=== PATIENT | male | born 1950 | race African-American/Black ===

== ENCOUNTER → 2019-12-10 | Outpatient (CLI) | payer MEDICARE, OTHER ==
[~2019-12-10] MED LIST: REGADENOSON 0.4 MG/5 ML SYR IV ONE
--- NOTE | 2019-12-14 14:56 | Operative Report ---
DATE OF PROCEDURE: 12/10/2019 SURGEON: Bennie Norwood MD Lexiscan nuclear stress test. INDICATION: Chest pain. PROCEDURE: The patient was stressed using 1 minute intravenous infusion of Lexiscan. Rest and stress Myoview imaging was obtained. Resting electrocardiogram shows sinus rhythm, no other EKG changes. Resting heart rate 65, blood pressure 164/96. Following Lexiscan infusion, no EKG changes, no arrhythmias. Both nuclear imaging and resting stress is normal, normal contractility of the left ventricle. CONCLUSIONS: 1. Normal Lexiscan nuclear stress test without evidence of ischemia, infarction. 2. LV ejection fraction is 58%. ACCESSION NUMBER: [id number]. Bennie Norwood MD [facility] /[id number]
== END ==
LOC: NM 09:52
PROVIDERS: ATTEND Internal Medicine Interventional Cardiology
DX: I20.8 Other forms of angina pectoris (principal)
CPT/HCPCS: 78452; 87635; 93017; A9502; J2785

== ENCOUNTER 2020-03-17 17:19 | Inpatient (IN) | payer MEDICARE, OTHER ==
[~2020-03-17] VITALS: Ht 170.2 cm; Wt 78.9 kg
[2020-03-17] MEDS ORDERED: PIPER-TAZ 3.375 GM 50 ML IV ONE (18:15)
[2020-03-17] MEDS ORDERED: VANCOMYCIN 1GM/NS 250 ML 250 ML IV ONE (18:30)
--- NOTE | 2020-03-17 19:01 | Emergency Department Note ---
History of Present Illnes History of Present Illness Chief Complaint: Extremity Trauma/Pain History of Present Illness This is a 69 year old male presents with complaint of worsening right lower extremity pain. States has had swelling and pain for several months and right lower extremity that has gotten worse over the last few days. 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 . Historian: Patient Arrival Mode: Car Onset (how long ago): day(s) (several) Location: rle Quality: pain, swelling, redness Radiation: Reports non-radiation Severity: moderate Onset quality: gradual Duration (how long): day(s) (several) Timing of current episode: constant Progression: worsening Chronicity: chronic Context: Denies recent illness, Denies recent surgery, Denies trauma/injury Relieving factors: none Exacerbating factors: none Associated symptoms: Reports denies other symptoms Treatments prior to arrival: none Past Medical/Family History Physician Review I have reviewed the patient's past medical and family history. Any updates have been documented here. Past Medical History Recent Fever: No Clinical Suspicion of Infectio: No New/Unexplained Change in Ment: No Past Medical History: Hypertension, CVA, Seizure Disorder Other Medical History: right hemiplegia from cva Other Surgery: non contributory Social History Smoking Cessation: Never Smoker Alcohol Use: None Any Illegal Drug Use: No Physically hurt or threatened: No Family History Family history of heart diseas: No Other family history htn Other Last Tetanus: UNK Review of Systems Review of Systems Constitutional: Reports no symptoms EENTM: Reports no symptoms Cardiovascular: Reports no symptoms Respiratory: Reports no symptoms Gastrointestinal: Reports no symptoms Genitourinary: Reports no symptoms Musculoskeletal: Reports as per HPI Integumentary: Reports no symptoms Neurological: Reports no symptoms Psychological: Reports no symptoms Endocrine: Reports no symptoms Hematological/Lymphatic: Reports no symptoms Physical Exam Related Data Allergies: Coded Allergies: No Known Allergies (Unverified , 05/09/16) Triage Vital Signs Vital Signs Date Time Temp Pulse Resp B/P (MAP) Pulse Ox O2 Delivery O2 Flow Rate FiO2 03/17/20 18:00 97.9 03/17/20 18:28 71 18 100 Room Air Vital signs reviewed: Yes Physical Exam CONSTITUTIONAL Constitutional: Present well-developed, Present well-nourished HENT HENT: Present normocephalic, Present atraumatic, Present oropharynx clear/moist, Present nose normal HENT L/R: Present left ext ear normal, Present right ext ear normal EYES Eyes: Reports PERRL, Reports conjunctivae normal NECK Neck: Present ROM normal PULMONARY Pulmonary: Present effort normal, Present breath sounds normal CARDIOVASCULAR Cardiovascular: Present regular rhythm, Present heart sounds normal, Present capillary refill normal, Present normal rate GASTROINTESTINAL Abdominal: Present soft, Present nontender, Present bowel sounds normal GENITOURINARY Genitourinary: Present exam deferred SKIN Skin: Present warm, Present dry, Present erythema (rle from knee to ankle) MUSCULOSKELETAL Musculoskeletal: Present ROM normal, Present tenderness (rle from below knee to ankle), Present swelling (rle below knee to ankle) NEUROLOGICAL Neurological: Present alert, Present oriented x 3, Present other (right side paralysis from previous stroke) PSYCHOLOGICAL Psychological: Present mood/affect normal, Present judgement normal Results Imaging Imaging results reviewed: Yes Impressions Procedure: [id number] DX/CHEST SINGLE (PORTABLE) Exam Date: Exam Time: REPORT STATUS: Signed EXAMINATION: CHEST SINGLE (PORTABLE) INDICATION: Weakness. COMPARISON: Chest x-ray on 05/09/2016. FINDINGS: TUBES and LINES: None. LUNGS: Normal lung volumes. There are prominent interstitial lung markings bilaterally. No consolidations. PLEURA: No pleural effusion or pneumothorax. HEART AND MEDIASTINUM: The cardiomediastinal silhouette is within normal limits with atherosclerotic calcification of the thoracic aortic arch BONES AND SOFT TISSUES: No acute osseous lesion. Median sternotomy wires in place. Soft tissues are otherwise unremarkable. UPPER ABDOMEN: No free air under the diaphragm. IMPRESSION: Prominent interstitial lung markings throughout both lungs which may be due to pulmonary vascular congestion or an inflammatory process such as bronchitis. No focal consolidation identified. Signed by: Collins White MD on 03/17/2020 7:21 PM Dictated By: COLLINS WHITE MD 20 Transcribed By: YARELIS on 03/17/201920 COPY TO: JOSE JERONIMO MD~ venous doppler negative for dvt Assessment & Plan Medical Decision Making MDM Patient with right lower extremity swelling redness and pain has gotten worse over the last several days. Exam is consistent with appears to be lower strumming cellulitis however DVT could be a complicating factor. CBC, CMP, blood cultures, lactic acid, venous Doppler, chest x-ray ordered to eval for leukocytosis, electrolyte abnormality, deep venous thrombosis, pneumonia. Zosyn 3.375 g IV ordered, vancomycin 1 g IV ordered I SPOKE WITH DR DEL CID , ADMIT INPATIENT Assessment & Plan Final Impression: (1) Cellulitis of right lower leg Depart Disposition: ADMITTED Last Vital Signs Date Time Temp Pulse Resp B/P (MAP) Pulse Ox O2 Delivery O2 Flow Rate FiO2 03/17/20 18:28 71 18 164/99 100 Room Air 03/17/20 18:00 97.9 Home Meds No Active Prescriptions or Reported Meds Medications in the ED Piperacillin Sod/ Tazobactam Sod 50 ml @ 50 mls/hr NOW ONCE IV ; Start 03/17/20 at 18:15; Stop 03/17/20 at 19:14 Vancomycin HCl 250 ml @ 167 mls/hr NOW ONCE IV ; Start 03/17/20 at 18:30; Stop 03/17/20 at 19:59 JOSE JERONIMO MD Mar 17, 2020 19:01
--- NOTE | 2020-03-17 19:25 | Diagnostic Imaging Report ---
EXAMINATION: CHEST SINGLE (PORTABLE) INDICATION: Weakness. COMPARISON: Chest x-ray on 05/09/2016. FINDINGS: TUBES and LINES: None. LUNGS: Normal lung volumes. There are prominent interstitial lung markings bilaterally. No consolidations. PLEURA: No pleural effusion or pneumothorax. HEART AND MEDIASTINUM: The cardiomediastinal silhouette is within normal limits with atherosclerotic calcification of the thoracic aortic arch BONES AND SOFT TISSUES: No acute osseous lesion. Median sternotomy wires in place. Soft tissues are otherwise unremarkable. UPPER ABDOMEN: No free air under the diaphragm. IMPRESSION: Prominent interstitial lung markings throughout both lungs which may be due to pulmonary vascular congestion or an inflammatory process such as bronchitis. No focal consolidation identified. Signed by: Collins Iyer MD on 03/17/2020 7:21 PM
[2020-03-17 19:33] LABS: BASOPHILS % 0.8 % (0.0-1.0); EOSINOPHILS # (AUTO) 0.3 (0.0-0.4); EOSINOPHILS % 5.6 % (0.0-6.0); HEMATOCRIT 40.8 % (38.2-49.6); HEMOGLOBIN 12.4 g/dL (14.0-18.0); LYMPHOCYTES # (AUTO) 1.3 (1.0-3.2); LYMPHOCYTES % 25.8 % (18.0-39.1); MEAN CORPUSCULAR HEMOGLOBIN 22.7 pg (28-32); MEAN CORPUSCULAR HGB CONC 30.4 g/dL (31-35); MEAN CORPUSCULAR VOLUME 74.6 fL (81-99); MONOCYTES # (AUTO) 0.4 (0.2-0.8); MONOCYTES % 8.5 % (4.4-11.3); NEUTROPHILS # (AUTO) 2.9 (2.1-6.9); NEUTROPHILS % 59.1 % (38.7-80.0); PLATELET COUNT 57 x10e3/uL (140-360); RED BLOOD COUNT 5.47 x10e6/uL (4.3-5.7); RED CELL DISTRIBUTION WIDTH 15.3 % (11.7-14.4)
[2020-03-17 19:36] LABS: INR 1.76; PROTHROMBIN TIME 21.6 seconds (11.9-14.5)
[2020-03-17 19:46] LABS: ALANINE AMINOTRANSFERASE 37 IU/L (0-55); ALBUMIN 3.9 g/dL (3.5-5.0); ALKALINE PHOSPHATASE 79 IU/L (40-150); ANION GAP 15.9 mmol/L (8-16); BLOOD UREA NITROGEN 27 mg/dL (7-26); BUN/CREATININE RATIO 22 (6-25); CALCIUM 9.3 mg/dL (8.4-10.2); CARBON DIOXIDE 19 mmol/L (22-29); CHLORIDE 107 mmol/L (98-107); CREATININE, SERUM 1.23 mg/dL (0.72-1.25); EST GLOMERULAR FILTRATION RATE > 60 ML/MIN (60-); GLUCOSE 79 mg/dL (74-118); POTASSIUM 4.9 mmol/L (3.5-5.1); SODIUM 137 mmol/L (136-145)
--- OUTSIDE RECORDS SUMMARY | 2020-03-17 20:32 | XMS REPORT | Clinical Summary ---
Author Author [place] [facility] Organization [facility] Address Unknown Phone Unavailable Care Team Providers Care Erosion Control Coordinator Name Role Phone Asked, No Pcp PCP Unavailable Allergies No Known Allergies Medications End Date Status Medication Sig Dispensed Refills Start Date 07/29/2019 amLODIPine (NORVASC) 5 mg Take 1 tablet 60 tablet 0 tablet (5 mg total) 9 by mouth 2 (two) times a day for 30 days. 07/30/2019 aspirin 81 mg chewable Chew 1 tablet 30 tablet 0 1 tablet (81 mg total) 9 daily for 30 days. 07/29/2019 atorvastatin (LIPITOR) 40 Take 1 tablet 30 tablet 0 MG tablet (40 mg total) 9 by mouth nightly for 30 days. 07/30/2019 lisinopril (PRINIVIL) 40 Take 1 tablet 30 tablet 0 mg tablet (40 mg total) 9 by mouth daily for 30 days. 08/07/2019 pantoprazole (PROTONIX) Take 1 tablet 30 tablet 0 40 MG EC tablet (40 mg total) 9 by mouth daily for 30 days. 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 Right sided weakness 06/22/2019 Encounters Care Team Description Date Type Specialty Gladis Silver MD Teqwimuah, Remy, DO Right sided weakness (Primary Dx); Fall, initial encounter; Hypertensive emergency; Foreign body (FB) in soft tissue; Acute CVA (cerebrovascular accident) (HCC) 06/22/2019 [facility] [place] [facility] - Encounter 07/09/2019 after 03/17/2019 Immunizations Name Administration Dates Next Due FLUZONE HIGH-DOSE PF 07/09/2019 Social History Date Tobacco Use Types Packs/Day Years Used Never Smoker Smokeless Tobacco: Never Used Drinks/Week oz/Week Comments Alcohol Use 2 bottles of smirnof f daily Yes Sex Assigned at Date Recorded Not on file Industry Job Start Date Occupation Not on file Not on file Not on file Travel End Travel History Travel Start No recent travel history available. Last Filed Vital Signs Reading Time Taken Comments Vital Sign 141/75 07/09/2019 3:42 PM [facility] Blood Pressure 83 07/09/2019 3:42 PM [facility] Pulse 36.8 C (98.3 F) 07/09/2019 3:42 PM [facility] Temperature 15 07/09/2019 3:42 PM [facility] Respiratory Rate 96% 07/09/2019 3:42 PM [facility] Oxygen Saturation - - Inhaled Oxygen Concentration - - Weight 170.2 cm (5' 7") 06/22/2019 10:41 AM [facility] Height - - Body Mass Index Plan of Treatment Health Maintenance Due Date Last Done Comments COLONOSCOPY SCREENING 2000 SHINGLES VACCINES (#1) 2000 65+ PNEUMOCOCCAL VACCINE 09/29/2015 (1 of 2 - PCV13) INFLUENZA VACCINE 04/20/2020 07/09/2019 Procedures Comments Procedure Name Priority Date/Time Associated Diag nosis POC GLUCOSE Routine 07/02/2019 4:09 AM [facility] POC GLUCOSE Routine 07/02/2019 12:32 AM [facility] POC GLUCOSE Routine 07/01/2019 7:26 PM [facility] POC GLUCOSE Routine 07/01/2019 4:25 PM [facility] POC GLUCOSE Routine 07/01/2019 10:54 AM [facility] ESTIMATED GFR STAT 07/01/2019 7:21 AM [facility] BASIC METABOLIC PANEL STAT 07/01/2019 7:21 AM [facility] HC COMPLETE BLD COUNT STAT 07/01/2019 W/AUTO DIFF 7:21 AM [facility] POC GLUCOSE Routine 07/01/2019 5:35 AM [facility] POC GLUCOSE Routine 07/01/2019 1:59 AM [facility] POC GLUCOSE Routine 06/30/2019 8:42 PM [facility] POC GLUCOSE Routine 06/30/2019 4:01 PM [facility] POC GLUCOSE Routine 06/30/2019 11:40 AM [facility] POC GLUCOSE Routine 06/30/2019 5:45 AM [facility] POC GLUCOSE Routine 06/29/2019 8:23 PM [facility] POC GLUCOSE Routine 06/29/2019 2:57 PM [facility] POC GLUCOSE Routine 06/29/2019 11:10 AM [facility] POC GLUCOSE Routine 06/29/2019 5:23 AM [facility] ESTIMATED GFR Routine 06/29/2019 5:00 AM [facility] BASIC METABOLIC PANEL Routine 06/29/2019 5:00 AM [facility] HC COMPLETE BLD COUNT Routine 06/29/2019 W/AUTO DIFF 5:00 AM [facility] POC GLUCOSE Routine 06/29/2019 12:03 AM [facility] POC GLUCOSE Routine 06/28/2019 9:05 PM [facility] POC GLUCOSE Routine 06/28/2019 4:22 PM [facility] POC GLUCOSE Routine 06/28/2019 11:20 AM [facility] POC GLUCOSE Routine 06/28/2019 5:23 AM [facility] POC GLUCOSE Routine 06/28/2019 1:31 AM [facility] POC GLUCOSE Routine 06/27/2019 4:19 PM [facility] POC GLUCOSE Routine 06/27/2019 11:58 AM [facility] ESTIMATED GFR Routine 06/27/2019 8:55 AM [facility] HC COMPLETE BLD COUNT Routine 06/27/2019 W/AUTO DIFF 8:55 AM [facility] BASIC METABOLIC PANEL Routine 06/27/2019 8:55 AM [facility] MAGNESIUM LEVEL Routine 06/27/2019 8:55 AM [facility] PHOSPHORUS LEVEL Routine 06/27/2019 8:55 AM [facility] IONIZED CALCIUM Routine 06/27/2019 8:55 AM [facility] POC GLUCOSE Routine 06/27/2019 8:35 AM [facility] XR ABDOMEN 1 VW PORTABLE STAT 06/27/2019 6:58 AM [facility] POC GLUCOSE Routine 06/27/2019 3:50 AM [facility] POC GLUCOSE Routine 06/26/2019 11:38 PM [facility]ER POC GLUCOSE Routine 06/26/2019 7:42 PM [facility] POC GLUCOSE Routine 06/26/2019 3:47 PM [facility] POC GLUCOSE Routine 06/26/2019 6:52 AM [facility] ESTIMATED GFR Routine 06/26/2019 3:01 AM [facility] PHOSPHORUS LEVEL Routine 06/26/2019 3:01 AM [facility] MAGNESIUM LEVEL Routine 06/26/2019 3:01 AM [facility] IONIZED CALCIUM Routine 06/26/2019 3:01 AM [facility] HC COMPLETE BLD COUNT Routine 06/26/2019 W/AUTO DIFF 3:01 AM [facility] BASIC METABOLIC PANEL Routine 06/26/2019 3:01 AM [facility] POC GLUCOSE Routine 06/25/2019 11:20 PM [facility] POC GLUCOSE Routine 06/25/2019 7:17 PM [facility] POC GLUCOSE Routine 06/25/2019 4:54 PM [facility] POC GLUCOSE Routine 06/25/2019 11:56 AM [facility] XR ABDOMEN 1 VW Routine 06/25/2019 11:50 AM [facility] POC GLUCOSE Routine 06/25/2019 7:23 AM [facility] SMEAR REVIEW Routine 06/25/2019 3:06 AM [facility] ESTIMATED GFR Routine 06/25/2019 3:06 AM [facility] PHOSPHORUS LEVEL Routine 06/25/2019 3:06 AM [facility] IONIZED CALCIUM Routine 06/25/2019 3:06 AM [facility] MAGNESIUM LEVEL Routine 06/25/2019 3:06 AM [facility] BASIC METABOLIC PANEL Routine 06/25/2019 3:06 AM [facility] HC COMPLETE BLD COUNT Routine 06/25/2019 W/AUTO DIFF 3:06 AM [facility] URINALYSIS, AUTOMATED Routine 06/24/2019 WITH MICROSCOPY 11:43 PM [facility] POC GLUCOSE Routine 06/24/2019 11:13 PM [facility] XR CHEST 1 VW PORTABLE Routine 06/24/2019 10:36 PM [facility] POC GLUCOSE Routine 06/24/2019 7:13 PM [facility] POC GLUCOSE Routine 06/24/2019 4:41 PM [facility] XR ABDOMEN 1 VW STAT 06/24/2019 4:14 PM [facility] ARTERIAL BLOOD GAS STAT 06/24/2019 1:00 PM [facility] ESTIMATED GFR Routine 06/24/2019 3:33 AM [facility] MAGNESIUM LEVEL Routine 06/24/2019 3:33 AM [facility] BASIC METABOLIC PANEL Routine 06/24/2019 3:33 AM [facility] HC COMPLETE BLD COUNT Routine 06/24/2019 W/AUTO DIFF 3:33 AM [facility] MRI BRAIN W WO CONTRAST Routine 06/23/2019 5:05 PM [facility] FL MODIFIED BARIUM Routine 06/23/2019 SWALLOW 3:57 PM [facility] SMEAR REVIEW Routine 06/23/2019 3:41 AM [facility] ESTIMATED GFR Routine 06/23/2019 3:41 AM [facility] MAGNESIUM LEVEL Routine 06/23/2019 3:41 AM [facility] BASIC METABOLIC PANEL Routine 06/23/2019 3:41 AM [facility] HC COMPLETE BLD COUNT Routine 06/23/2019 W/AUTO DIFF 3:41 AM [facility] LIPID PANEL Routine 06/23/2019 3:41 AM [facility] TTE COMPLETE, WO Routine 06/22/2019 CONTRAST, W AGITATED 4:15 PM [facility] SALINE ([id number]) ESTIMATED GFR STAT 06/22/2019 10:53 AM WOOD [facility]ER CREATINE KINASE, TOTAL STAT 06/22/2019 (CPK) 10:53 AM [facility] COMPREHENSIVE METABOLIC STAT 06/22/2019 PANEL 10:53 AM [facility]ER POC GLUCOSE Routine 06/22/2019 10:40 AM [facility]OD [facility] ECG 12-LEAD STAT 06/22/2019 10:[address] ANGIOGRAM HEAD W WO STAT 06/22/2019 CONTRAST 10:[address] ANGIOGRAM NECK W WO STAT 06/22/2019 CONTRAST 10:29 AM [facility] PARTIAL THROMBOPLASTIN STAT 06/22/2019 TIME (PTT) 10:27 AM [facility]ER PROTHROMBIN TIME WITH INR STAT 06/22/2019 10:27 AM WOOD [facility]ER HC COMPLETE BLD COUNT STAT 06/22/2019 W/AUTO DIFF 10:[address] STROKE BRAIN WO STAT 06/22/2019 CONTRAST 10:22 AM [facility] ECG ED PRELIMINARY Routine 06/22/2019 INTERPRETATION 10:12 AM [facility] CA CRITICAL CARE, E/M Routine 06/22/2019 30-74 MINUTES 10:12 AM [facility] after 03/17/2019 Results * POC glucose (07/02/2019 4:09 AM WOOD [facility]ER) Only the most recent of 38 results within the time period is included. Pathologist [facility] POC glucose 82 65 - 99 mg/dL [facility] Specimen Performing Organization Address [facility] Ph one Number [facility] DEPARTMENT OF [address] [place] [address] [place] [address] PATHOLOGY AND GENOMIC MEDICINE [address] * Estimated GFR (07/01/2019 7:21 AM WOOD [facility]ER) Only the most recent of 8 results within the time period is included. [facility] Estimated GFR 79 mL/min/1.73 m2 [place] Comment: [facility] Interpretation G1 >=90 Normal or high G2 60-89 Mildly decreased G3a 45-59 Mildly to moderately decreased G3b 30-44 Moderately to severely decreased G4 15-29 Severely decreased G5 <15 Kidney failure The eGFR was calculated using the Chronic Kidney Disease Epidemiology Collaboration (CKD-EPI) equation. Interpretation is based on recommendations of the National Kidney Foundation-Kidney Disease Outcomes Quality Initiative (NKF-KDOQI) published in 2014. Specimen Plasma specimen Performing Organization Address [facility] Ph one Number [facility] DEPARTMENT OF [address] [place] [address] [place] [address] PATHOLOGY AND GENOMIC MEDICINE [address] * CBC with platelet and differential (07/01/2019 7:21 AM WOOD HACKER) Only the most recent of 8 results within the time period is included. [facility] WBC 7.13 4.50 - 11.00 k/uL [facility] RBC 5.98 4.40 - 6.00 m/uL [facility] HGB 14.0 14.0 - 18.0 g/dL [facility] HCT 45.3 41.0 - 51.0 % [facility] MCV 75.8 (L) 82.0 - 100.0 fL [facility] MCH 23.4 (L) 27.0 - 34.0 pg [facility] MCHC 30.9 (L) 31.0 - 37.0 g/dL [facility] RDW - SD 42.2 37.0 - 55.0 fL [facility] MPV 11.5 8.8 - 13.2 fL [facility] Platelet count 172 150 - 400 k/uL [facility] Nucleated RBC 0.00 /100 WBC [facility] Neutrophils 61.9 39.0 - 69.0 % [facility] Lymphocytes 22.9 (L) 25.0 - 45.0 % [facility] Monocytes 10.7 (H) 0.0 - 10.0 % [facility] Eosinophils 3.8 0.0 - 5.0 % [facility] Basophils 0.4 0.0 - 1.0 % [facility] Specimen Blood Performing Organization Address [facility] Ph one Number [facility] [place]PARTMENT [place] [id number] [place] [address] [place], [place] [address] PATHOLOGY AND GENOMIC MEDICINE [address] [place] [id number] [facility] * Basic metabolic panel (07/01/2019 7:21 AM WOOD [facility]ACKER) Only the most recent of 7 results within the time period is included. Sodium 139 135 - 148 mEq/L [facility] Potassium 4.0 3.5 - 5.0 mEq/L [facility] Chloride 106 98 - 112 mEq/L [facility] CO2 26 24 - 31 mEq/L [facility] Anion gap 7@ANIO 7 - 15 mEq/L [facility] BUN 17 8 - 23 mg/dL [facility] Creatinine 1.10 0.70 - 1.20 mg/dL [facility] Glucose 101 (H) 65 - 99 mg/dL [facility] Calcium 9.8 8.8 - 10.2 mg/dL [facility] Specimen Plasma specimen Performing Organization Address City/[facility] Ph one Number [facility] [place] [place] [address] [address] [place] [phone] 58 PATHOLOGY AND GENOMIC MEDICINE [facility] [address] [address] * Phosphorus level (06/27/2019 8:55 AM WOOD [facility]ER) Only the most recent of 3 results within the time period is included. Phosphorus 3.3 2.4 - 4.5 mg/dL [facility] Specimen Plasma specimen Performing Organization Address [facility] Ph one Number [facility] [place] [address] [address] [phone] 58 PATHOLOGY AND GENOMIC MEDICINE [facility] [address] [address] * Magnesium level (06/27/2019 8:55 AM WOOD [facility]ER) Only the most recent of 5 results within the time period is included. Magnesium 2.1 1.6 - 2.4 mg/dL [facility] Specimen Plasma specimen Performing Organization Address [facility] Ph one Number [facility] [place] [address] [address] [place] [address] PATHOLOGY AND GENOMIC MEDICINE [facility] [address] [address] * Ionized calcium (06/27/2019 8:55 AM WOOD [facility]ER) Only the most recent of 3 results within the time period is included. pH 7.48 [facility] Ionized calcium 1.14 1.11 - 1.32 mmol/L [facility] Specimen Plasma specimen Performing Organization Address [facility] Ph one Number [facility] [place] [address] [address] [place] [address] PATHOLOGY AND GENOMIC MEDICINE [facility] [address] * XR Abdomen 1 Vw Portable (06/27/2019 6:58 AM [facility]ER) Specimen Narrative Performed At EXAMINATION: XR ABDOMEN 1 VW PORTABLE [facility] INDICATION: cortrak placement COMPARISON:June 25, 2019 IMPRESSION: 1.Weighted tip feeding tube projects at the proximal jejunum. A partially visualized second catheter projects ove r the right upper quadrant. 2.Contrast is present within the large bowel. Bowel gas pattern is otherwise nonspecific. 3.Osseous degenerative changes. [facility]-[id number] Procedure Note Interface, Radiology Results Incoming - 06/27/2019 7:44 AM [facility]ER EXAMINATION: XR ABDOMEN 1 VW PORTABLE INDICATION: cortrak placement COMPARISON:June 25, 2019 IMPRESSION: 1.Weighted tip feeding tube projects at the proximal jejunum. A partially visualized second catheter projects over the right upper quadrant. 2.Contrast is present within the large b owel. Bowel gas pattern is otherwise nonspecific. 3.Osseous degenerative changes. [facility]-[id number] Performing Organization Address [facility] one Number [facility] [address] [place] [address] * XR Abdomen 1 Vw (06/25/2019 11:50 AM WOOD [facility]ER) Only the most recent of 2 results within the time period is included. Specimen Narrative Performed At Study:XR ABDOMEN 1 VW [facility] History:Feeding difficulties, Cortrak p lacement COMPARISON:Yesterday IMPRESSION: Single view abdomen. The tip of the bhoff tube is in the third segment of the duodenum. Contrast is seen within the c olon. No bowel distention or free air. Bones are stable. [id number] Procedure Note Interface, Radiology Results Incoming - 06/25/2019 12:44 PM WOOD [facility]ER Study:XR ABDOMEN 1 VW History:Feeding difficulties, Cortrak placement COMPARISON:Yesterday IMPRESSION: Single view abdomen. The tip of the Dobbhoff tube is in the third segment of the duodenum. Contrast is seen within the colon. No bowel distention or free air. Bones are stable. [id number] Performing Organization Address [facility] one Number [facility] [address] [place] [address] * Smear review (06/25/2019 3:06 AM WOOD [facility]ACKER) Only the most recent of 2 results within the time period is included. Platelet slide Cyndi slt decr [place] review [facility] Specimen Performing Organization Address [facility] one Number [facility] [place] [address] [address] [place], [place] [address] PATHOLOGY AND GENOMIC MEDICINE [facility] [address] [place] [address] [facility] * Urinalysis, automated with microscopy (06/24/2019 11:43 PM WOOD HACKER) Color, UA Yellow [facility] Appearance, UA Clear [facility] Specific 1.010 1.001 - 1.035 [place] gravity, UA [facility] pH, UA 5.0 5.0 - 8.5 [facility] Protein, UA Negative Negative [facility] Glucose, UA Negative Negative [facility] Ketones, UA 1+ (A) Negative [facility] Bilirubin, UA Negative Negative [facility] Blood, UA Negative Negative [facility] Nitrite, UA Negative Negative [facility] Urobilinogen, Negative <2.0 [facility] Leukocyte Negative Negative [place] esterase, UA [facility] Epithelial Few Few /HPF [place] cells, [facility] WBC, UA 0-5 0 - 1 /HPF [facility] RBC, UA 0-5 0 - 5 /HPF [facility] Bacteria, UA Few None seen [facility] Yeast, UA None seen [facility] Yeast with None seen [place] pseudohyphae, [facility] Specimen Urine Performing Organization Address City/State/[facility] Ph one Number [facility] [place] [address] [address] [place], [place] [address] PATHOLOGY AND GENOMIC MEDICINE [facility] [address] [place] [address] [facility] * XR Chest 1 Vw Portable (06/24/2019 10:36 PM WOOD HACKER) Specimen Narrative Performed At EXAMINATION: XR CHEST 1 VW PORTABLE [facility] CLINICAL HISTORY: AMS hypoxia COMPARISON: None . IMPRESSION: 1.Heart size is normal. Median sternoto my wires overlie the midline. 2.A Dobbhoff tube extends into the uppe r abdomen with the tip in the third portion duodenum. There is residual con trast within the colon. 3.Lungs are clear. 4.No pneumothorax.. [facility]-[id number] Procedure Note Interface, Radiology Results Incoming - 06/24/2019 10:51 PM WOOD [facility]ACKER EXAMINATION: XR CHEST 1 VW PORTABLE CLINICAL HISTORY: AMS hypoxia COMPARISON: None . IMPRESSION: 1.Heart size is normal. Median sternotom y wires overlie the midline. 2.A Dobbhoff tube extends into the upper abdomen with the tip in the third portion duodenum. There is residual contrast within the colon. 3.Lungs are clear. 4.No pneumothorax.. [facility]-[id number] Performing Organization Address City/[facility] Ph one Number [facility] [address] [place] [address] * Arterial blood gas (06/24/2019 1:00 PM WOOD HACKER) pH, arterial 7.42Comment: [id number] 7.35 - 7.45 [facility] pCO2, arterial 34 (L) 35 - 45 mmHg [facility] pO2, arterial 75 (L) 80 - 90 mmHg [facility] Bicarbonate, 22.7 21.0 - 28.0 mmol/L [facility] Base excess, -2 -2 - 2 mEq/L [facility] O2 saturation, 97 95 - 100 % [facility] FiO2, inspired 21 % [place] O2% [facility] Specimen Blood Performing Organization Address City/[facility] Ph one Number [facility] [place] [address] [address] [place], [place] [address] PATHOLOGY AND GENOMIC MEDICINE [facility] [address] [place] [address] [facility] * MRI Brain W Wo Contrast (06/23/2019 5:05 PM WOOD HACKER) Specimen Narrative Performed At EXAMINATION: MRI BRAIN W WO CONTRAST [facility] CLINICAL HISTORY: cva. Follow-up COMPARISON: CT brain from yesterday. TECHNIQUE: Multiplanar and multisequenc e MRI imaging of the brain was obtained with and without contrast. FINDINGS: There is a small recent stroke in the p osterior upper left basal ganglia and frontal ray radiata. There is no sig nificant mass effect. There is no evidence of recent hemorrhage. There is nonspecific enlargement of the ventricles and extra axial space and white matter changes. There are old inf arcts in the basal ganglia, thalami and right cerebellum. There are no areas of abnormal enhancem ent in the brain or extra axial region. The sella is partially empty. The orbits, sinuses and mastoid air evelina ls do not show abnormality. IMPRESSION: Finding consistent with a small recent stroke in the left posterior lateral upper basal ganglia and frontal ray radiata. Old infarcts and chronic changes. [id number] Procedure Note Hm Interface, Radiology Results Incoming - 06/23/2019 5:30 PM [facility]OD [facility]ACKER EXAMINATION: MRI BRAIN W WO CONTRAST CLINICAL HISTORY: cva. Follow-up COMPARISON: CT brain from yesterday. TECHNIQUE: Multiplanar and multisequence MRI imaging of the brain was obtained with and without contrast. FINDINGS: There is a small recent stroke in the posterior upper left basal ganglia and frontal ray radiata. There is no significant mass effect. There is no evidence of recent hemorrhage. There is nonspecific enlargement of the ventricles and extra axial space and white matter changes. There are old infarcts in the basal ganglia, thalami and right cerebellum. There are no areas of abnormal enhancement in the brain or extra axial region. The sella is partially empty. The orbits, sinuses and mastoid air cells do not show abnormality. IMPRESSION: Finding consistent with a small recent stroke in the left posterior lateral upper basal ganglia and frontal ray radiata. Old infarcts and chronic changes. [facility][id number] Performing Organization Address [facility] one Number [facility] [address] [place] [address] * [place] Modified Barium Swallow (06/23/2019 3:57 PM WOOD HACKER) Specimen Narrative Performed At EXAMINATION: FL MODIFIED BARIUM SWALLOW [facility] CLINICAL HISTORY: Dysphagia known c ause, I63.91 dysphagia after CVA COMPARISON: None. Fluoroscopy time: 3 minutes and 35 seco nds, single image obtained. FINDINGS: The patient swallowed varying consisten cies of barium under direct lateral fluoroscopic evaluation. The study was performed in conjunction with speech pathology. IMPRESSION: There was silent aspiration with the th in and ultrathin liquid. Please refer to Speech Pathology report for further details. [id number] Procedure Note Interface, Radiology Results Incoming - 06/23/2019 4:56 PM WOOD [facility]ACKER EXAMINATION: FL MODIFIED BARIUM SWALLOW CLINICAL HISTORY: Dysphagia known cause, I63.91 dysphagia after CVA COMPARISON: None. Fluoroscopy time: 3 minutes and 35 seconds, single image obtained. FINDINGS: The patient swallowed varying consistencies of barium under direct lateral fluoroscopic evaluation. The study was performed in conjunction with speech pathology. IMPRESSION: There was silent aspiration with the thin and ultrathin liquid. Please refer to Speech Pathology report for further details. [id number] Performing Organization Address [facility] one Number [facility] [address] [place] [address] * Lipid panel (06/23/2019 3:41 AM WOOD HACKER) Cholesterol 171 <200 mg/dL [facility] Triglycerides 46 (A) <150 mg/dL [facility] HDL cholesterol 81 >40 mg/dL [facility] LDL cholesterol 89Comment: Result obtained by <100 mg/dL [place] direct LDL measurement [facility] Lipid panel SeeBelow [place] interpretation Comment: [facility] Total Cholesterol (mg/dL) [facility] <200 Desirable 200-239 Borderline-high >=240 High Triglycerides (mg/dL) <150 Normal 150-199 Borderline-high 200-499 High >=500 Very high HDL Cholesterol (mg/dL) <40 Low (male) <40 Low (female) LDL Cholesterol (mg/dL) <100 Optimal 100-129 Near or above optimal 130-159 Borderline-high 160-189 High >=190 Very high Risk Catergories that modify LDL goals. Risk Catergories LDL goal (mg/dL) CHD and CHD risk equivalent <100 (10-year risk >20%) Multiple (2+) risk factors <130 (10-year risk =<20%) 0-1 risk factors <160 (<10-year risk) Defining levels of lipids in metabolic syndrome Triglycerides >=150 mg/dL HDL Cholesterol Men <40 mg/dL Women <40 mg/dL Non-HDL cholesterol is a second target for therapy in persons with high triglycerides (>=200 mg/dL) Specimen Plasma specimen Performing Organization Address City/State/[place] Ph one Number [facility] [place]PARTMENT [place] [id number] [place] [address] [place], [place] [address] PATHOLOGY AND GENOMIC MEDICINE [facility] [address] [place] [address] [facility] * Echocardiogram complete w contrast and 3D if needed (06/22/2019 4:15 PM WOOD HACKER) AoV Area, Vmax 2.68 cm2 [facility] AoV Area, VTI 2.78 cm2 HM [facility] AoV Mean PG 4.24 mmHg HM [facility] AoV Peak PG 7.59 mmHg HM [facility] AoV Vmax 1.38 m/s [facility] AoV VTI 0.23 m [facility] IVS,d 1.32 cm HM [facility] LV,d 3.93 cm HM [facility] LV EF,A2C 61.65 % [facility] LV EF,A4C 60.24 % [facility] LV EF,BP 56.57 % [facility] Gabriel Ida,d A2C 8.38 cm HM [facility] Gabriel Ida,d A4C 7.40 cm HM [facility] Gabriel Ida,s A2C 7.45 cm HM [facility] Gabriel Ida,s A4C 5.29 cm HM [facility] LV,s 2.78 cm HM [facility] LV SV,A2C 50.40 % [facility] LV SV,A4C 41.31 % HM [facility] LV Vol,d A2C 81.75 mL HM [facility] LV Vol,d A4C 68.58 ml HM [facility] LV Vol,d BP 79.47 ml HM [facility] LV Vol,s A2C 31.36 mL HM [facility] LV Vol,s A4C 27.27 ml HM [facility] LV Vol,s BP 34.51 nl [facility] LVOT Diam,S 1.98 cm [facility] LVOT Vmax 1.20 m/s [facility] LVOT VTI 0.20 m HM [facility] LVPWD,d 1.39 cm HM [facility] TR Vpeak 2.72 mm/s [facility] AR Press Half 694.52 ms HM [facility] Time MV E A ratio 0.44 [facility] TR pk grad 24 mmHg HM [facility] E wave 208.99 msec HM [facility] decelartion time MV Peak A Victor Manuel 0.80 m/s [facility] MV valve area p 5.35 cm2 HM [facility] 1/2 method MV Peak E Victor Manuel 0.35 m/s [facility] MV stenosis 41.10 ms HM [facility] pressure 1/2 time AV LVOT peak 5.72 mmHg HM [facility] gradient LV SYS VOL 29.01 ml HM [facility] LV PRINCE VOL 67.32 ml HM [facility] LV SV Teich 2D 38.32 ml HM [facility] AoV Cusp sep 1.61 [facility] AoV Vmn 0.97 [facility] IVS s 2D 1.63 [facility] AR slope 2.24 [facility] Ar Vmax 4.80 [facility] LA Ao Ratio 1.02 [facility] Mmode LVOT Vmn 0.79 [facility] Ao root annulus 3.59 cm HM [facility] PV AT 79.58 msec [facility] LVOT mean grad 2.86 mmHg HM [facility] AR DT 2,137.33 msec [facility] AR pk grad 71.64 mmHg HM [facility] LVPW s PLAX 1.78 cm [facility] MV Decel slope 1.67 m/s2 [facility] LA Vol MOD A4C 44.90 ml [facility] Velocity Ratio 0.87 m/s [facility] (V1/V2) EF 56.91 % [facility] E/A ratio 0.44 [facility] LVOT area 3.08 cm2 HM [facility] RVSP (TR) 29.13 mmHg HM [facility] RA pressure 5.00 mmHg HM [facility] LA Vol 4C 45.00 ml HM [facility] RVSP 29.13 mmHg HM [facility] LA diam s 3.70 cm [facility] Aortic Root 3.60 cm HM [facility] CA End Prince 4.78 HM [facility] Grad CA End Diat Victor Manuel 1.09 HM [facility] AR maxPG 81.84 [facility] D E excurs 1.40 [facility] E f slope 0.05 HM [facility] E prime lat 0.06 HM [facility] E ilir sept 0.04 [facility] PV acc T slope 9.60 [facility] DENNIS BP EF 57.00 % [facility] LA VOL 2C 36.00 ml HM [facility] Specimen Narrative Performed At HM [facility] Left ventricular systolic function i s normal. There is mild left ventricular maco ntric hypertrophy. Left Ventricular ejection fraction i s 55 - 60%. Spectral Doppler shows impaired rela xation pattern of left ventricular diastolic filling. Saline contrast injection showed no evidence of intracardiac shunt. Performing Organization Address [facility] Ph one Number [facility] [address] [place] [address], * Creatine kinase, total (CPK) (06/22/2019 10:53 AM WOOD HACKER) Creatine kinase 247 39 - 308 U/L [facility] Specimen Plasma specimen Performing Organization Address City/[facility] Ph one Number [facility] [place] [id number] [place] [address] [place], [place] [address] PATHOLOGY AND GENOMIC MEDICINE [facility] [id number] [place] [address] [place] [address] [facility] * Comprehensive metabolic panel (06/22/2019 10:53 AM WOOD HACKER) Sodium 132 (L) 135 - 148 mEq/L [facility] Potassium 3.9 3.5 - 5.0 mEq/L [facility] Chloride 100 98 - 112 mEq/L [facility] CO2 17 (L) 24 - 31 mEq/L [facility] Anion gap 15@ANIO 7 - 15 mEq/L [facility] BUN 18 8 - 23 mg/dL [facility] Creatinine 1.00 0.70 - 1.20 mg/dL [facility] Glucose 105 (H) 65 - 99 mg/dL [facility] Calcium 9.3 8.8 - 10.2 mg/dL [facility] Protein 6.9 6.3 - 8.3 g/dL [place] Comment: [facility] Dmrbowj1428.6-7.0 g/dL [facility] 1 rahi0337.4-7.6 g/dL 7 months-6usop645.1-7.3 g/dL 1-2 bahxv742.6-7.5 g/dL >3 ceqxk278.0-8.0 g/dL 18-4879341.3-8.3 g/dL Albumin 4.0 3.5 - 5.0 g/dL [facility] A/G ratio 1.4 0.7 - 3.8 [facility] Alkaline 58 40 - 129 U/L [place] phosphatase [facility] AST 20 10 - 50 U/L [facility] ALT 9 5 - 50 U/L [facility] Total bilirubin 0.5 0.0 - 1.2 mg/dL [facility] Specimen Plasma specimen Performing Organization Address City/State/[facility] Ph one Number [facility] [place] [address] [address] [place] [address] PATHOLOGY AND GENOMIC MEDICINE [facility] [address] [place] [address] [facility] * ECG 12 lead (06/22/2019 10:38 AM WOOD HACKER) Ventricular 92 [facility] rate Atrial rate 92 [facility] CA interval 154 [facility] QRSD interval 72 [facility] QT interval 382 [facility] QTC interval 472 [facility] P axis 1 48 [facility] QRS axis 1 33 [facility] T wave axis -7 [facility] EKG impression Normal sinus rhythm with sinus [facility] MU SE arrhythmia-^^^ Poor data quality, interpretation may be adversely affected-Possible Left atrial enlargement-Left ventricular hypertrophy-ST elevation, consider early repolarization, pericarditis, or injury-Nonspecific T wave abnormality-Prolonged QT-Abnormal ECG-No previous ECGs available- Specimen Narrative Performed At This result has an attachment that is n ot available. Performing Organization Address City/State/Zipcode Ph one Number [facility] MUSE [address] [place] [address] * CTA Head W Wo Contrast (06/22/2019 10:31 AM WOOD HACKER) Specimen Narrative Performed At EXAMINATION: CT ANGIOGRAM HEAD W WO CONTRAST RADI ANT CLINICAL HISTORY: Stroke. Follow up. Ev aluate for acute large vessel occlusion. COMPARISON: CT brain from earlier tod ay TECHNIQUE: Imaging of the intracrania l circulation was obtained from the skull base to the vertex during the arterial phase of enhancement. Postprocessing was performed with MIP multiplanar and 3D r econstructed images. CT scans are performed using radiation dose reduction techniques. Te chnical factors are evaluated and adjusted to ensure appropriate moderati on of exposure. Automated dose management technology is applied to adjust radiati on exposure while achieving a diagnostic quality image. FINDINGS: There is no evidence of acute large ves jose occlusion at the level of the huslia of [place]. There is flow in both socially responsible investment adviser ior communicating arteries with small P1 segments. The distal right vertebral artery is do minant. The distal vertebral and basilar arteries and the distal internal caroti d arteries do not show evidence of significant focal stenosis. I do not se e focal aneurysm or arterial venous malformation. The study was not performed for proper imaging of the brain. There is good enhancement in the upper dural venous s inuses. IMPRESSION: No evidence of acute large vessel occlu ollie at the level of the huslia of [place]. [facility]-[id number] Procedure Note Interface, Radiology Results Incoming - 06/22/2019 11:22 AM WOOD HACKER EXAMINATION: CT ANGIOGRAM HEAD W WO CONTRAST CLINICAL HISTORY: Stroke. Follow up. Evaluate for acute large vessel occlusion. COMPARISON: CT brain from earlier today TECHNIQUE: Imaging of the intracranial circulation was obtained from the skull base to the vertex during the arterial phase of enhancement. Postprocessing was performed with MIP multiplanar and 3D reconstructed images. CT scans are performed using radiation dose reduction techniques. Technical factors are evaluated and adjusted to ensure appropriate moderation of exposure. Automated dose management technology is applied to adjust radiation exposure while achieving a diagnostic quality image. FINDINGS: There is no evidence of acute large vessel occlusion at the level of the huslia of [place]. There is flow in both posterior communicating arteries with small P1 segments. The distal right vertebral artery is dominant. The distal vertebral and basilar arteries and the distal internal carotid arteries do not show evidence of significant focal stenosis. I do not see focal aneurysm or arterial venous malformation. The study was not performed for proper imaging of the brain. There is good enhancement in the upper dural venous sinuses. IMPRESSION: No evidence of acute large vessel occlusion at the level of the huslia of [place]. [facility]-[id number] Performing Organization Address City/State/Zipcode Ph one Number [facility] [address] [place] [address] * CTA Neck W Wo Contrast (06/22/2019 10:29 AM WOOD HACKER) Specimen Narrative Performed At EXAMINATION: CT ANGIOGRAM NECK W WO CONTRAST RA GUDINO CLINICAL HISTORY: Stroke follow up COMPARISON: None. TECHNIQUE: Neck CTA with multi-planar MIP and volu metric rendering (3D) after bolus intravenous iodinated contrast administ ration was performed. All CT images were acquired using low-d ose technique with automated exposure control. FINDINGS: Common origin of the brachiocephalic an d left common carotid arteries. Tortuosity of the proximal great vessel s. Dominant right vertebral artery. Mild partially calcified arteriosclerosis of the proximal left internal carotid artery. The bilateral cervical carotid and vert ebral arterial systems appear widely patent without evidence of dissection o r hemodynamically significant stenosis by NASCET criteria. Limited evaluation of the neck adjacent evidence of abnormal mass, collection, or suspicious osseous lesion. Median st ernotomy wires. See dedicated CTA head report for intracranial findings. IMPRESSION: No significant cervical carotid or vert ebral artery stenosis. [id number] Procedure Note Interface, Radiology Results Incoming - 06/22/2019 11:20 AM WOOD HACKER EXAMINATION: CT ANGIOGRAM NECK W WO CONTRAST CLINICAL HISTORY: Stroke follow up COMPARISON: None. TECHNIQUE: Neck CTA with multi-planar MIP and volumetric rendering (3D) after bolus intravenous iodinated contrast administration was performed. All CT images were acquired using low-dose technique with automated exposure control. FINDINGS: Common origin of the brachiocephalic and left common carotid arteries. Tortuosity of the proximal great vessels. Dominant right vertebral artery. Mild partially calcified arteriosclerosis of the proximal left internal carotid artery. The bilateral cervical carotid and vertebral arterial systems appear widely patent without evidence of dissection or hemodynamically significant stenosis by NASCET criteria. Limited evaluation of the neck adjacent evidence of abnormal mass, collection, or suspicious osseous lesion. Median sternotomy wires. See dedicated CTA head report for intracranial findings. IMPRESSION: No significant cervical carotid or vertebral artery stenosis. [id number] Performing Organization Address [facility] one Number [facility] [address] [place] [address] * Partial thromboplastin time, activated (06/22/2019 10:27 AM WOOD HACKER) PTT 23.5 23.0 - 36.0 sec [place] Comment: GAMA DOE PTT therapeutic range for [facility] unfractionated heparin is 61.0-112.0 seconds which corresponds to Anti-Xa 0.3-0.7 U/ml. Specimen Blood Performing Organization Address [facility] one Number [facility] DEPARTMENT OF [address] [place] [address] [place] [address] PATHOLOGY AND GENOMIC MEDICINE [place] JEWISH CLEAR [address] [place] [address] * Prothrombin time with INR (06/22/2019 10:27 AM WOOD HACKER) Prothrombin 13.0 11.5 - 14.5 sec [place] time [facility] INR 1.0 [place] Comment: GAMA DOE The International Normalized [facility] Ratio (INR) is a therapeutic monitoring tool for patients who are stable on oral anticoagulant therapy. An INR of 2.0-3.0 is suggested for deep vein thrombosis/pulmonary embolism. Specimen Blood Performing Organization Address [facility] one Number [facility] DEPARTMENT OF [address] [place] [address] [address] [place] [address] PATHOLOGY AND GENOMIC MEDICINE [place] GAMA DOE [address] [place] [address] * CT Stroke Brain Wo Contrast (06/22/2019 10:22 AM WOOD HACKER) Specimen Narrative Performed At EXAMINATION: CT STROKE BRAIN WO CONTRAST [facility] CLINICAL INFORMATION: Focal neuro defic it > 6 hrs stroke suspected COMPARISON: None available at the time of study. TECHNIQUE: CT imaging was performed wit h contrast using iterative reconstruction technique and/or automated exposure con trol to reduce radiation dose. CONTRAST: No IV contrast administered . FINDINGS: CEREBRUM: *Exam shows no evidence of acute intrac ranial hemorrhage, mass effect, midline shift, hydrocephalus or brain herniatio n *There is a background of moderate symm etric volume loss with extensive subcortical and periventricular microan giopathic changes. *Chronic appearing infarcts noted in th e left precentral gyrus, left caudate nucleus, right lentiform nucleus and bi lateral thalami. CEREBELLUM: *No evidence of acute hemorrhage, mass effect, midline shift, hydrocephalus or brain herniation *There is a chronic cortical infarct in volving the right inferior cerebellar lobe BRAINSTEM: *No evident edema, hemorrhage, mass, mi dline shift or acute infarction *No evidence of inappropriate atrophy. CSF SPACES: *Ventricles, cisterns, and sulci are ap propriate for age. *No hydrocephalus, subarachnoid hemorrh age, or mass. VASCULAR: *Limited assessment with no evident abn ormalities of huslia of [place] and dural sinuses. SKULL: *No focal lesions, mass, displaced frac tures or other visible lesion. SINUSES: *Limited views demonstrate no mass, sig nificant mucosal thickening or fluid. ORBITS: *Limited views shows no focal lesion fr acture or other visible lesion. OTHER: *Dehiscent sellar diaphragm resulting i n an empty sella IMPRESSION: 1.Negative for acute intracranial hemor rhage, mass effect, midline shift, hydrocephalus or brain herniation 2.Extensive supratentorial microangiopa thy changes with multiple chronic appearing subcortical, perforating and right cerebellar infarcts as described in the body the report. Findings were discussed with and acknow ledged by GLADIS SILVER at 06/22/2019 10:32 AM who verbalized understanding. [id number] Procedure Note Hm Interface, Radiology Results Incoming - 06/22/2019 10:37 AM WOOD HACKER EXAMINATION: CT STROKE BRAIN WO CONTRAST CLINICAL INFORMATION: Focal neuro deficit > 6 hrs stroke suspected COMPARISON: None available at the time of study. TECHNIQUE: CT imaging was performed with contrast using iterative reconstruction technique and/or automated exposure control to reduce radiation dose. CONTRAST: No IV contrast administered. FINDINGS: CEREBRUM: *Exam shows no evidence of acute intracranial hemorrhage, mass effect, midline shift, hydrocephalus or brain herniation *There is a background of moderate symmetric volume loss with extensive subcortical and periventricular microangiopathic changes. *Chronic appearing infarcts noted in the left precentral gyrus, left caudate nucleus, right lentiform nucleus and bilateral thalami. CEREBELLUM: *No evidence of acute hemorrhage, mass effect, midline shift, hydrocephalus or brain herniation *There is a chronic cortical infarct involving the right inferior cerebellar lobe BRAINSTEM: *No evident edema, hemorrhage, mass, midline shift or acute infarction *No evidence of inappropriate atrophy. CSF SPACES: *Ventricles, cisterns, and sulci are appropriate for age. *No hydrocephalus, subarachnoid hemorrhage, or mass. VASCULAR: *Limited assessment with no evident abnormalities of huslia of [place] and dural sinuses. SKULL: *No focal lesions, mass, displaced fractures or other visible lesion. SINUSES: *Limited views demonstrate no mass, significant mucosal thickening or fluid. ORBITS: *Limited views shows no focal lesion fracture or other visible lesion. OTHER: *Dehiscent sellar diaphragm resulting in an empty sella IMPRESSION: 1.Negative for acute intracranial hemorr jeff, mass effect, midline shift, hydrocephalus or brain herniation 2.Extensive supratentorial microangiopat hy changes with multiple chronic appearing subcortical, perforating and right cerebellar infarcts as described in the body the report. Findings were discussed with and acknowledged by GLADIS SILVER at 06/22/2019 10:32 AM who verbalized understanding. [id number] Performing Organization Address City/State/[facility] Ph one Number [facility] [address] [place] [address] * ECG ED Preliminary Interpretation - Not an Order (06/22/2019 10:12 AM WOOD HACKER) Narrative Performed At Gladis Silver MD 06/22/2019 11:51 AM ECG ED Preliminary Interpretation - Not an Order Performed by: Gladis Silver MD Authorized by: Gladis Silver MD ECG reviewed by ED Physician in the abs ence of a automobile damage field appraiser: no Interpretation: Interpretation: normal Rate: ECG rate: 92 ECG rate assessment: normal Rhythm: Rhythm: sinus rhythm QRS: QRS axis: Normal QRS intervals: Normal Conduction: Conduction: normal ST segments: ST segments: Non-specific T waves: T waves: non-specific * CRITICAL CARE (06/22/2019 10:12 AM WOOD HACKER) Narrative Performed At Gladis Silver MD 06/22/2019 11:51 AM Critical Care Performed by: Gladis Silver MD Authorized by: Gladis Silver MD Critical care provider statement: Critical care time (minutes): 40 Critical care time was exclusive of: Separately billable procedures and treating other patients Critical care was necessary to treat or prevent imminent or life-threatening deterioration of the f ollowing conditions: BRIDGE MANAGER failure or compromise Critical care was time spent personal ly by me on the following activities: Ordering and performing t reatments and interventions, ordering and review of laboratory studi es, ordering and review of radiographic studies, pulse oximetry, r e-evaluation of patient's condition and discussions with consultants after 03/17/2019 Insurance Type Payer Benefit Subscriber ID Effective Phone Address Plan / Dates Group HMO [employer] TEX[employer] xxxxxxxxx [id number] JOHAN paulson Advance Directives For more information, please contact: [phone] Patient Foreclosure Paralegal Explanation Type Date Recorded Advance Directives, Living Will and 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
--- OUTSIDE RECORDS SUMMARY | 2020-03-17 20:33 | XMS REPORT | Continuity of Care Document ---
Author Author [facility] Organization [facility] Address [address] [place] [address] Phone Unavailable Care Team Providers Care Repairer Switchgear Name Role Phone Asked, Pcp No PCP Unavailable Fernanda JERONIMO Attphys Unavailable Cheyenne VAUGHN, Roxana Griffith Attphys Teqwimuah DO, Segun Attphys TEQWIMUAH, SEGUN Admphys Unavailable Payers Payer Name Policy Type Policy Number Effective Date Expiration Date S tanya TEXANPLUSTEXANPLUS [id number] xxxxxxxxx 2018 00:00:00 Nic Spencer Problems Condition Name Condition Details Condition Category Status Onset Date Resolution Date Last Treatment Date Treating Clinician Comments Source Malignant hypertension Malignant hypertension Disease Active 2019-06-23 00:00:[address] Right sided weakness Right sided weakness Disease Active 00:00:00 Nic Spencer Allergies, Adverse Reactions, Alerts This patient has no known allergies or adverse reactions. Social History Social Habit Start Date Stop Date Quantity Comments Source Sex Assigned At [facility] Alcohol intake 2019-06-22 00:00:00 2019-06-22 00:00:00 Current drinker of alcohol (finding) Nic Spencer Alcohol Comment 2019-06-22 00:00:00 2019-06-22 00:00:00 2 bottle s of smirnoff daily Nic Spencer Smoking Status Start Date Stop Date Source Never smoker Nic Berman t Medications Ordered Medication Name Filled Medication Name Start Date Stop Da te Current Medication? Ordering Clinician Indication Dosage Frequency Signature (SIG) Comments Components Source pantoprazole (PROTONIX) 40 MG EC tablet 00:00:00 2019-08-07 23:59:00 No 40mg QD Take 1 tablet (40 mg total) by mouth daily for 30 days. Nic Spencer aspirin 81 mg chewable tablet 2019-06-30 00:00:00 2019-07-30 23: 59:00 No 81mg QD Chew 1 tablet (81 mg total) daily for 30 days. Nic Spencer lisinopril (PRINIVIL) 40 mg tablet 2019-06-30 00:00:00 202 23:59:00 No 40mg QD Take 1 tablet (40 mg total) by mouth graham ly for 30 days. Nic Spencer amLODIPine (NORVASC) 5 mg tablet 2019-06-29 00:00:00 2019-07 23:59:00 No 5mg Q.5D Take 1 tablet (5 mg total) by mo ut 2 (two) times a day for 30 days. Nic Spencer atorvastatin (LIPITOR) 40 MG tablet 2019-06-29 00:00:0 0 2019-07-29 23:59:00 No 40mg QD Take 1 tablet (40 mg total) by mouth nig htly for 30 days. Nic Spencer Immunizations Ordered Immunization Name Filled Immunization Name Date Status Comments Source FLUZONE HIGH-DOSE PF 2019-07-09 00:00:00 Completed Nic Spencer Vital Signs Vital Name Observation Time Observation Value Comments Source Systolic blood pressure 2019-07-09 15:42:48 141 mm[Hg] Nic Spencer Diastolic blood pressure 2019-07-09 15:42:48 75 mm[Hg] Nic Spencer Heart rate 2019-07-09 15:42:48 83 /min Nic Spencer Body temperature 2019-07-09 15:42:48 36.83 [place]elsi [place] [facility] Respiratory rate 2019-07-09 15:42:48 15 /min [place] [facility] Oxygen saturation in Arterial blood by Pulse oximetry 2018-07 15:42:48 96 /min Nic Spencer Body height 2019-06-22 10:41:00 170.2 cm Nic Spencer Procedures Procedure Date / Time Performed Performing Clinician Lizz mckenzie POC GLUCOSE 2019-07-02 04:09:00 Segun Das odreagan POC GLUCOSE 2019-07-02 00:32:00 TeqwSegun [place] [facility] POC GLUCOSE 2019-07-01 19:26:00 TeSegun arriola Meth odist POC GLUCOSE 2019-07-01 16:25:00 TeqwimSegun guerrero Meth odist POC GLUCOSE 2019-07-01 10:54:00 TeSegun arriola Meth odist HC COMPLETE BLD COUNT W/AUTO DIFF 2019-07-01 07:21:00 TeqwimSegun guerrero [facility] BASIC METABOLIC PANEL 2019-07-01 07:21:00 TeqwimSegun guerreroto n Baptism ESTIMATED GFR 2019-07-01 07:21:00 TeqwSegun [place] [facility] odist POC GLUCOSE 2019-07-01 05:35:00 TeqwSegun [place] Meth odist POC GLUCOSE 2019-07-01 01:59:00 TeSegun arriola Meth odist POC GLUCOSE 2019-06-30 20:42:00 TeqwSegun [place] Meth odist POC GLUCOSE 2019-06-30 16:01:00 TeqwimSegun guerrero Meth odist POC GLUCOSE 2019-06-30 11:40:00 TeSegun arriola Meth odist POC GLUCOSE 2019-06-30 05:45:00 TeqwSegun [place] Meth odist POC GLUCOSE 2019-06-29 20:23:00 TeSegun arriola Meth odist POC GLUCOSE 2019-06-29 14:57:00 TeqwSegun [place] Meth odist POC GLUCOSE 2019-06-29 11:10:00 TeqwimuaSegun smith Meth odist POC GLUCOSE 2019-06-29 05:23:00 TeqwSegun [place] [facility] odist HC COMPLETE BLD COUNT W/AUTO DIFF 2019-06-29 05:00:00 TeqwSegun [place] [facility] BASIC METABOLIC PANEL 2019-06-29 05:00:00 TeqwimSegun guerreroto n Baptism ESTIMATED GFR 2019-06-29 05:00:00 TeqwimSegun guerrero Meth odist POC GLUCOSE 2019-06-29 00:03:00 Segun Das Meth odist POC GLUCOSE 2019-06-28 21:05:00 Segun Das Meth odist POC GLUCOSE 2019-06-28 16:22:00 Segun Das Meth odist POC GLUCOSE 2019-06-28 11:20:00 Segun Das Meth odist POC GLUCOSE 2019-06-28 05:23:00 Segun Das Meth odist POC GLUCOSE 2019-06-28 01:31:00 Segun Das Meth odist POC GLUCOSE 2019-06-27 16:19:00 Segun Das Meth odist POC GLUCOSE 2019-06-27 11:58:00 Segun Das odist IONIZED CALCIUM 2019-06-27 08:55:00 Di Francis [facility] PHOSPHORUS LEVEL 2019-06-27 08:55:00 Di Francisto n Baptism MAGNESIUM LEVEL 2019-06-27 08:55:00 Di Francis [facility] BASIC METABOLIC PANEL 2019-06-27 08:55:00 Di Francis [facility] Baptism HC COMPLETE BLD COUNT W/AUTO DIFF 2019-06-27 08:55:00 Di Francis [facility] ESTIMATED GFR 2019-06-27 08:55:00 Di Francis Katjustine Lucero Baptism POC GLUCOSE 2019-06-27 08:35:00 ThiagoSegun odist XR ABDOMEN 1 VW PORTABLE 2019-06-27 06:58:37 EmmaSegun [place] [facility] POC GLUCOSE 2019-06-27 03:50:00 EmmaSegun [place] Meth odist POC GLUCOSE 2019-06-26 23:38:00 BostonSegun arriola Meth odist POC GLUCOSE 2019-06-26 19:42:00 TeSegun arriola Meth odist POC GLUCOSE 2019-06-26 15:47:00 EmmaSegun [place] Meth odist POC GLUCOSE 2019-06-26 06:52:00 TebrunoSegun [place] Meth odist BASIC METABOLIC PANEL 2019-06-26 03:01:00 Di Francis [facility] HC COMPLETE BLD COUNT W/AUTO DIFF 2019-06-26 03:01:00 Di Francis [facility] IONIZED CALCIUM 2019-06-26 03:01:00 Di Francis [facility] MAGNESIUM LEVEL 2019-06-26 03:01:00 Di Francis [facility]ism PHOSPHORUS LEVEL 2019-06-26 03:01:00 Di Francisto n Baptism ESTIMATED GFR 2019-06-26 03:01:00 Di Francis [facility]ism POC GLUCOSE 2019-06-25 23:20:00 TeqwimSegun guerrero Meth odist POC GLUCOSE 2019-06-25 19:17:00 TeqwimSegun guerrero Meth odist POC GLUCOSE 2019-06-25 16:54:00 TebrunoimSegun guerrero Meth odist POC GLUCOSE 2019-06-25 11:56:00 TebrunoimSegun guerrero Meth odist XR ABDOMEN 1 VW 2019-06-25 11:50:00 JasDai diaz Nic Meth odist POC GLUCOSE 2019-06-25 07:23:00 Tebrunoimcesar Segun Lucero Meth odist HC COMPLETE BLD COUNT W/AUTO DIFF 2019-06-25 03:06:00 ChanceAliceromina Lucero [facility] BASIC METABOLIC PANEL 2019-06-25 03:06:00 ChanceBirgit Kemal ston Baptism MAGNESIUM LEVEL 2019-06-25 03:06:00 ChanceBirgitromina Lucero M ethodist IONIZED CALCIUM 2019-06-25 03:06:00 Di Francis [facility]ism PHOSPHORUS LEVEL 2019-06-25 03:06:00 Di Francis [facility] ESTIMATED GFR 2019-06-25 03:06:00 Di Francis [facility]ism SMEAR REVIEW 2019-06-25 03:06:00 Di Francis [facility]ism URINALYSIS, AUTOMATED WITH MICROSCOPY 2019-06-24 23:43:00 Johanna Grove [facility] POC GLUCOSE 2019-06-24 23:13:00 Segun Das odist XR CHEST 1 VW PORTABLE 2019-06-24 22:36:32 Johanna Baker POC GLUCOSE 2019-06-24 19:13:00 TeqwSegun [place] odist POC GLUCOSE 2019-06-24 16:41:00 Segun Das odist XR ABDOMEN 1 VW 2019-06-24 16:14:57 IamDai Lucero Magdalena odreagan ARTERIAL BLOOD GAS 2019-06-24 13:00:00 Dai Vitale ethodist HC COMPLETE BLD COUNT W/AUTO DIFF 2019-06-24 03:33:00 Alice Fletcher Bapt[facility] BASIC METABOLIC PANEL 2019-06-24 03:33:00 JuanBirgit beard Kemal cheema Baptism MAGNESIUM LEVEL 2019-06-24 03:33:00 Birgit Fletcher ethodist ESTIMATED GFR 2019-06-24 03:33:00 Birgit Fletcher ethodist MRI BRAIN W WO CONTRAST 2019-06-23 17:05:24 Dai Vitale Baptism FL MODIFIED BARIUM SWALLOW 2019-06-23 15:57:01 Dai Vitale LIPID PANEL 2019-06-23 03:41:00 DakotaGladis calvert ethodist HC COMPLETE BLD COUNT W/AUTO DIFF 2019-06-23 03:41:00 JuanAlice beard Baptism BASIC METABOLIC PANEL 2019-06-23 03:41:00 Birgit Fletcher Kemal cheema Baptism MAGNESIUM LEVEL 2019-06-23 03:41:00 Birgit Fletcher ethodist ESTIMATED GFR 2019-06-23 03:41:00 Birgit Fletcher ethodist SMEAR REVIEW 2019-06-23 03:41:00 Birgit Fletcher ethodist TTE COMPLETE, WO CONTRAST, W AGITATED SALINE ([id number]) 2019-06 16:15:00 Lorena Monteiro Baptism COMPREHENSIVE METABOLIC PANEL 2019-06-22 10:53:00 CheyenneNatalyrajni Joss [facility] CREATINE KINASE, TOTAL (CPK) 2019-06-22 10:53:00 Cheyenne Gladis Im run Lucero [facility]ism ESTIMATED GFR 2019-06-22 10:53:00 CheyenneNatalyrajni Roxana Morgan ethodist POC GLUCOSE 2019-06-22 10:40:00 Cheyenne Natalyrajni Roxana Morgan ethodist ECG 12-LEAD 2019-06-22 10:38:18 Cheyenne Natalyrajni Roxana Morgan ethodist CT ANGIOGRAM HEAD W WO CONTRAST 2019-06-22 10:31:[address] ANGIOGRAM NECK W WO CONTRAST 2019-06-22 10:29:00 Gladis Silver Prudencioleonides Spencer HC COMPLETE BLD COUNT W/AUTO DIFF 2019-06-22 10:27:00 Amisha Silver in Roxana Spencer PROTHROMBIN TIME WITH INR 2019-06-22 10:27:00 Gladis Silver PARTIAL THROMBOPLASTIN TIME (PTT) 2019-06-22 10:27:00 Amisha Silver in Roxana Spencer CT STROKE BRAIN WO CONTRAST 2019-06-22 10:22:00 Gladis Silver ID CRITICAL CARE, E/M 30-74 MINUTES 2019-06-22 10:12:16 Justine Silver ECG ED PRELIMINARY INTERPRETATION 2019-06-22 10:12:16 Amisha Silver in Roxana Spencer Plan of Care Planned Activity Planned Date Details Comments Source Future Scheduled Test 2020-04-20 00:00:00 INFLUENZA VACCINE [code = INFLUENZA VACCINE] [facility] Future Scheduled Test 2015-09-29 00:00:00 65+ PNEUMOCOCCAL V ACCINE (1 of 2 - PCV13) [code = 65+ PNEUMOCOCCAL VACCINE (1 of 2 - PCV13)] [facility] Future Scheduled Test 2000 00:00:00 COLONOSCOPY SCREEN ING [code = COLONOSCOPY SCREENING] [facility] Future Scheduled Test 2000 00:00:00 SHINGLES VACCINES (#1) [code = SHINGLES VACCINES (#1)] [place] [facility] Encounters Start Date/Time End Date/Time Encounter Type Admission Type [facility] Care Department Encounter ID Source 2019-06-22 00:00:00 2019-07-09 00:00:00 Inpatient NATE DAS [facility] 064 [id number] [place] [facility] Results Test Description Test Time Test Comments Results Result Comments Source CHEST SINGLE (PORTABLE) 2020-03-17 19:20:00 [place] [address] Patient Name: CHANDAN SILVA JR MR #: [id number] : 1950 Age/Sex: 69/M Req #: [id number] Adm Physician: Ordered by: JOSE JERONIMO MD Report #: [id number] Location: ER Room/Bed: Procedure: [id number] DX/CHEST SINGLE (PORTABLE) Exam Date: Exam Time: REPORT STATUS: Signed EXAMINATION: CHEST SINGLE (PORTABLE) INDICATION: Weakness. COMPARISON: Chest x-ray on 05/09/2016. FINDINGS: TUBES and LINES: None. LUNGS: Normal lung volumes. There are prominent interstitial lung markings bilaterally. No consolidations. PLEURA: No pleural effusion or pneumothorax. HEART AND MEDIASTINUM: The cardiomediastinal silhouette is within normal limits with atherosclerotic calcification of the thoracic aortic arch BONES AND SOFT TISSUES: No acute osseous lesion. Median sternotomy wires in place. Soft tissues are otherwise unremarkable. UPPER ABDOMEN: No free air under the diaphragm. IMPRESSION: Prominent interstitial lung markings throughout both lungs which may be due to pulmonary vascular congestion or an inflammatory process such as bronchitis. No focal consolidation identified. Signed by: Joreg White MD on 03/17/2020 7:21 PM Dictated By: JORGE WHITE MD 20 Transcribed By: YARELIS on 03/17/201920 COPY TO: JOSE JERONIMO MD POC glucose 2019-07-02 10:41:58 Test Item POC glucose (test code = 37334-1) 82 mg/dL 65-99 [facility] metabolic [id number] 08:03:57* Test Item Value Reference Range Interpretation Comments Sodium (test code = 2951-2) 139 135- 148 mEq/L Potassium (test code = 2823-3) 4.0 3.5- 5.0 mEq/L Chloride (test code = 2075-0) 106 98- 112 mEq/L CO2 (test code = 8-9) 26 24- 31 mEq/L Anion gap (test code = 55603-8) 7@ANIO 7- 15 mEq/L BUN (test code = 3094-0) 17 mg/dL 8-23 Creatinine (test code = 2160-0) 1.10 mg/dL 0.7-1.2 Glucose (test code = 2345-7) 101 mg/dL 65-99 H Calcium (test code = 99506-9) 9.8 mg/dL 8.8-10.2 Lab Interpretation (test code = 37477-6) Abnormal [place] MethodistEstimated [id number] 08:03:57* Test Item Value Reference Range Interpretation Comments Estimated GFR (test code = 5488) 79 mL/min/1.73 m2 Catergory Units InterpretationG1 >=90 Normal or highG2 60-89 Mildly ihsrvmzojP6j 45-59 Mildly to moderately ezqpqhznmL5b 30-44 Moderately to severely decreasedG4 15-29 Severely decreasedG5 <15 Kidney failureThe eGFR was calculated using the Chronic Kidney Disease Epidemiology Collaboration (CKD-EPI) equation. Interpretation is based on recommendations of the National Kidney Foundation-Kidney Disease Outcomes Quality Initiative (NKF-KDOQI) published in 2014. [facility] with platelet and oajpewtfixpx9444-83-59 07:47:02* Test Item Value Reference Range Interpretation Comments WBC (test code = 60276-1) 7.13 4.50- 11.00 k/uL RBC (test code = 22431-1) 5.98 m/uL 4.4-6 HGB (test code = 718-7) 14.0 g/dL 14-18 HCT (test code = 4544-3) 45.3 % 41-51 MCV (test code = 787-2) 75.8 fL 82-100 L MCH (test code = 785-6) 23.4 pg 27-34 L MCHC (test code = 786-4) 30.9 g/dL 31-37 L RDW - SD (test code = 45839-0) 42.2 fL 37-55 MPV (test code = 46806-6) 11.5 fL 8.8-13.2 Platelet count (test code = 17748-0) 172 150- 400 k/uL Nucleated RBC (test code = 79274-4) 0.00 /100 WBC Neutrophils (test code = 91978-3) 61.9 % 39-69 Lymphocytes (test code = 34870-2) 22.9 % 25-45 L Monocytes (test code = 98417-6) 10.7 % 0-10 H Eosinophils (test code = 44226-1) 3.8 % 0-5 Basophils (test code = 01552-3) 0.4 % 0-1 Lab Interpretation (test code = 93850-5) Abnormal [place] MethodistMagnesium smdam2866-51-77 09:17:36* Test Item Value Reference Range Interpretation Comments Magnesium (test code = 48463-9) 2.1 mg/dL 1.6-2.4 [place] MethodistPhosphorus jtmrt2592-63-23 09:17:36* Test Item Value Reference Range Interpretation Comments Phosphorus (test code = 2777-1) 3.3 mg/dL 2.4-4.5 [place] MethodistIonized [id number] 09:01:51* Test Item Value Reference Range Interpretation Comments pH (test code = 2753-2) 7.48 Ionized calcium (test code = 1995-0) 1.14 mmol/L 1.11-1.32 [place] MethodistXR Abdomen 1 Uittrozb2814-90-05 07:41:04 Interface, Radiology Results - 06/27/2019 7:44 AM CSTEXAMINATION: XR ABDOMEN 1 PORTABLEINDICATION: cortrak placementCOMPARISON:June 25 9IMPRESSION:1.Weighted tip feeding tube projects at the proximal jejunum. A part ially visualized second catheter projects over the right upper quadrant.2.Contra st is present within the large bowel. Bowel gas pattern is otherwise nonspecific .3.Osseous degenerative changes.[id number] MethodistXR Abdomen 1 Vw 2019-06-25 12:41:42Hm Interface, Radiology Results - 06/25/2019 12:44 PM CSTStudy:XR ABDOMEN 1 VWHistory:Feeding difficulties, Cortrak placementCOMPARISON:YesterdayIMPRESSION:Single view abdomen. The tip of the Dobbhoff tube is in the third segment of the duodenum. Contrast is seen within the colon. No bowel distention or free air. Bones are stable.[id number] [place] MethodistSmear [id number] 03:53:56* Test Item Value Reference Range Interpretation Comments Platelet slide review (test code = 57481-6) Cyndi slt decr [place] MethodistUrinalysis, automated with crnppximzw6054-27-55 00:02:10* Test Item Value Reference Range Interpretation Comments Color, UA (test code = 5778-6) Yellow Appearance, UA (test code = 5767-9) Clear Specific gravity, UA (test code = 5811-5) 1.010 1.001-1.035 pH, UA (test code = 5803-2) 5.0 5.0-8.5 Protein, UA (test code = 00264-9) Negative Negative Glucose, UA (test code = 21842-7) Negative Negative Ketones, UA (test code = 2514-8) 1+ Negative A Bilirubin, UA (test code = 5770-3) Negative Negative Blood, UA (test code = 5794-3) Negative Negative Nitrite, UA (test code = 5802-4) Negative Negative Urobilinogen, UA (test code = 75170-4) Negative <2.0 Leukocyte esterase, UA (test code = 5799-2) Negative Negative Epithelial cells, UA (test code = 5787-7) Few Few /HPF WBC, UA (test code = 5821-4) 0-5 0- 1 /HPF RBC, UA (test code = 78958-4) 0-5 0- 5 /HPF Bacteria, UA (test code = 83264-3) Few None seen Yeast, UA (test code = 74949-2) None seen Yeast with pseudohyphae, UA (test code = 03676-4) None seen Lab Interpretation (test code = 89447-1) Abnormal [facility] MethodistXR Chest 1 Gptvlswr4584-92-05 22:48:36Hm Interface, Radiology Results Incoming - 06/24/2019 10:51 PM CSTEXAMINATION: XR CHEST 1 PORTABLECLINICAL HISTORY: AMS hypoxiaCOMPARISON:None .IMPRESSION:1.Heart size is normal. Median sternotomy wires overlie the midline.2.A Dobbhoff tube extends into the upper abdomen with the tip in the third portion duodenum. There is residual contrast within the colon.3.Lungs are clear.4.No pneumothora x..[facility]-[id number] MethodistArterial blood [id number] 13:09:35* Test Item Value Reference Range Interpretation Comments pH, arterial (test code = 2744-1) 7.42 7.35-7.45 NAA750 pCO2, arterial (test code = 2019-8) 34 35- 45 mmHg L pO2, arterial (test code = 2703-7) 75 80- 90 mmHg L Bicarbonate, arterial (test code = 1960-4) 22.7 mmol/L 21-28 Base excess, arterial (test code = 1925-7) -2 -2 - 2 mEq- L O2 saturation, arterial (test code = 2708-6) 97 % 95-100 FiO2, inspired O2% (test code = 1389) 21 % Lab Interpretation (test code = 28817-5) Abnormal [place] MethodistEchocardiogram complete w contrast and 3D if [id number] 18:33:45* Test Item Value Reference Range Interpretation Comments AoV Area, Vmax (test code = 7159023809) 2.68 cm2 AoV Area, VTI (test code = 0767401254) 2.78 cm2 AoV Mean PG (test code = 0305774342) 4.24 mmHg AoV Peak PG (test code = 6197214592) 7.59 mmHg AoV Vmax (test code = 6102912902) 1.38 m/s AoV VTI (test code = 7304695155) 0.23 m IVS,d (test code = 9534572523) 1.32 cm LV,d (test code = 7772158725) 3.93 cm LV EF,A2C (test code = 5216179563) 61.65 % LV EF,A4C (test code = 8827636781) 60.24 % LV EF,BP (test code = 2302243527) 56.57 % Gabriel Bowlus,d A2C (test code = 6518594584) 8.38 cm Gabriel Bowlus,d A4C (test code = 9176832627) 7.40 cm Gabriel Bowlus,s A2C (test code = 9919686468) 7.45 cm Gabriel Bowlus,s A4C (test code = 7632488551) 5.29 cm LV,s (test code = 5652547143) 2.78 cm LV SV,A2C (test code = 6411309835) 50.40 % LV SV,A4C (test code = 2885612847) 41.31 % LV Vol,d A2C (test code = 8911307413) 81.75 mL LV Vol,d A4C (test code = 9107920550) 68.58 ml LV Vol,d BP (test code = 4467539675) 79.47 ml LV Vol,s A2C (test code = 9715407868) 31.36 mL LV Vol,s A4C (test code = 4211236452) 27.27 ml LV Vol,s BP (test code = 2858571760) 34.51 nl LVOT Diam,S (test code = 9437518420) 1.98 cm LVOT Vmax (test code = 1373229072) 1.20 m/s LVOT VTI (test code = 1287544238) 0.20 m LVPWD,d (test code = 9231750757) 1.39 cm TR Vpeak (test code = 6268802673) 2.72 mm/s AR Press Half Time (test code = 3441795278) 694.52 ms MV E A ratio (test code = 3149678974) 0.44 TR pk grad (test code = 3274646379) 24 mmHg E wave decelartion time (test code = 9488972210) 208.99 msec MV Peak A Victor Manuel (test code = 2311862424) 0.80 m/s MV valve area p 1/2 method (test code = 2997986938) 5.35 cm2 MV Peak E Victor Manuel (test code = 3551343021) 0.35 m/s MV stenosis pressure 1/2 time (test code = 9943287881) 41.10 ms AV LVOT peak gradient (test code = 6643789100) 5.72 mmHg LV SYS VOL (test code = 7557777432) 29.01 ml LV PRINCE VOL (test code = 9302586448) 67.32 ml LV SV Teich 2D (test code = 5723573174) 38.32 ml AoV Cusp sep (test code = 6819807782) 1.61 AoV Vmn (test code = 9779803451) 0.97 IVS s 2D (test code = 0779441581) 1.63 AR slope (test code = 0066656231) 2.24 Ar Vmax (test code = 1338898760) 4.80 LA Ao Ratio Mmode (test code = 0509722178) 1.02 LVOT Vmn (test code = 2732902481) 0.79 Ao root annulus (test code = 4901411538) 3.59 cm PV AT (test code = 4336919724) 79.58 msec LVOT mean grad (test code = 2822816338) 2.86 mmHg AR DT (test code = 5565170630) 2137.33 msec AR pk grad (test code = 1823117525) 71.64 mmHg LVPW s PLAX (test code = 9543382492) 1.78 cm MV Decel slope (test code = 1590301760) 1.67 m/s2 LA Vol MOD A4C (test code = 2921105345) 44.90 ml Velocity Ratio (V1/V2) (test code = 4689) 0.87 m/s EF (test code = 4933508747) 56.91 % E/A ratio (test code = 3524388061) 0.44 LVOT area (test code = 7441409433) 3.08 cm2 RVSP (TR) (test code = 5702202655) 29.13 mmHg RA pressure (test code = 7513884964) 5.00 mmHg LA Vol 4C (test code = 9326512257) 45.00 ml RVSP (test code = 4201254241) 29.13 mmHg LA diam s (test code = 2393562027) 3.70 cm Aortic Root (test code = 6781735056) 3.60 cm ID End Prince Grad (test code = 3254301631) 4.78 ID End Diat Victor Manuel (test code = 5621055696) 1.09 AR maxPG (test code = 6482197862) 81.84 D E excurs (test code = 0903668181) 1.40 E f slope (test code = 2802499045) 0.05 E prime lat (test code = 8808206549) 0.06 E ilir sept (test code = 5359313175) 0.04 PV acc T slope (test code = 4423900619) 9.60 DENNIS BP EF (test code = 5931152480) 57.00 % LA VOL 2C (test code = 2146458358) 36.00 ml MAGALI (test code = MAGALI) Left ventricular systolic function is normal. There is mild left ventricular concentric hypertrophy. Left Ventricular ejection fraction is 55 - 60%. Spectral Doppler shows impaired relaxation pattern of left ventricular diastolic filling. Saline contrast injection showed no evidence of intracardiac shunt. [facility] W Wo Eydxvrax4028-64-02 17:26:56Hm Interface, Radiology Results 06/23/2019 5:30 PM CSTEXAMINATION: MRI BRAIN W WO CONTRASTCLINICAL HISTORY: cva. Follow-upCOMPARISON: CT brain from yesterday.TECHNIQUE: Multiplanar and multisequence MRI imaging of the brain was obtained with and without contrast.FINDINGS:There is a small recent stroke in t he posterior upper left basal ganglia and frontal ray radiata. There is no si gnificant mass effect. There is no evidence of recent hemorrhage.There is nonspe cific enlargement of the ventricles and extra axial space and white matter lainez es. 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 The sella is partially empty.The orbits, sinuses and mastoid air cells do not show abnormality.IMPRESSION:Finding consistent with a small recent stroke in the left posterior lateral upper basal ganglia and frontal ray radiata.Old infarcts a nd chronic changes.[facility]-[id number] MethodistFL Modified Barium Swallow 2019-06-23 16:53:21Hm Interface, Radiology Results 06/23/2019 4:56 PM CSTEXAMINATION: [place] MODIFIED BARIUM SWALLOWCLINICAL HISTORY: Dysphagia known cause, I63.91 dysphagia after CVACOMPARISON: None.Fluoroscopy time: 3 minutes and 35 seconds, single image obtained.FINDINGS: The patient swallowed varying consistencies of barium under direct lateral fluoroscopic evaluation. The study was performed in conjunction with speech pathology.IMPRESSION:There was silent aspiration with the thin and ultrathin liquid.Please refer to Speech Pathology report for further details.[id number] MethodistLipid panel 2019-06-23 04:06:27* Test Item Value Reference Range Interpretation Comments Cholesterol (test code = 2093-3) 171 mg/dL <200 Triglycerides (test code = 2571-8) 46 mg/dL <150 A HDL cholesterol (test code = 2085-9) 81 mg/dL >40 LDL cholesterol (test code = 2089-1) 89 mg/dL <100 Result obtained by direct LDL measurement Lipid panel interpretation (test code = 37601-5) SeeBelow Total Cholesterol (mg/dL) <200 Desirable 200-239 Borderline-high >=240 High Triglycerides (mg/dL) <150 Normal 150-199 Borderline-high 200-499 High >=500 Very high HDL Cholesterol (mg/dL) <40 Low (male) <40 Low (female) LDL Cholesterol (mg/dL) <100 Optimal 100-129 Near or above optimal 130-159 Borderline-high 160-189 High >=190 Very high Risk Catergories that modify LDL goals.Risk Catergories LDL goal (mg/dL)CHD and CHD risk equivalent <100 (10-year risk >20%)Multiple (2+) risk factors <130 (10-year risk =<20%)0-1 risk factors <160 (<10-year risk) Defining levels of lipids in metabolic syndromeTriglycerides >=150 mg/dLHDL Cholesterol Men <40 mg/dL Women <40 mg/dL Non-HDL cholesterol is a second target for therapy in personswith high triglycerides (>=200 mg/dL) Lab Interpretation (test code = 54538-6) Abnormal Nic Larsen 12 [id number] 11:55:41* Test Item Value Reference Range Interpretation Comments Ventricular rate (test code = 253) 92 Atrial rate (test code = 255) 92 ID interval (test code = 266) 154 QRSD interval (test code = 260) 72 QT interval (test code = 264) 382 QTC interval (test code = 265) 472 P axis 1 (test code = 267) 48 QRS axis 1 (test code = 268) 33 T wave axis (test code = 270) -7 EKG impression (test code = 273) Normal sinus rhythm w ith sinus arrhythmia-^^^ Poor data quality, interpretation may be adversely affected-Possible Left atrial enlargement-Left ventricular hypertrophy-ST elevation, consider early repol arization, pericarditis, or injury-Nonspecific T wave abnormality-Prolonged QT- Abnormal ECG-No previous ECGs available- [place] [facility] [id number] 11:25:01* Test Item Value Reference Range Interpretation Comments Sodium (test code = 2951-2) 132 135- 148 mEq/L L Potassium (test code = 2823-3) 3.9 3.5- 5.0 mEq/L Chloride (test code = 2075-0) 100 98- 112 mEq/L CO2 (test code = 2027-9) 17 24- 31 mEq/L L Anion gap (test code = 23826-0) 15@ANIO 7- 15 mEq/L BUN (test code = 3094-0) 18 mg/dL 8-23 Creatinine (test code = 2160-0) 1.00 mg/dL 0.7-1.2 Glucose (test code = 2345-7) 105 mg/dL 65-99 H Calcium (test code = 65577-4) 9.3 mg/dL 8.8-10.2 Protein (test code = 2885-2) 6.9 g/dL 6.3-8.3 Eyzmdih7630.6-7.0 g/dL1 fcmz6237.4-7.6 g/dL7 months-5zkwg057.1-7.3 g/dL1-2 waoaz064.6-7.5 g/dL>3 yuqnv433.0-8.0 g/oM79-0941851.3-8.3 g/dL Albumin (test code = 1751-7) 4.0 g/dL 3.5-5 A/G ratio (test code = 1759-0) 1.4 0.7-3.8 Alkaline phosphatase (test code = 6768-6) 58 U/L 40-129 AST (test code = 1920-8) 20 U/L 10-50 ALT (test code = 1742-6) 9 U/L 5-50 Total bilirubin (test code = 1975-2) 0.5 mg/dL 0-1.2 Lab Interpretation (test code = 71738-7) Abnormal [place] [facility] kinase, total (CPK)2019-06-22 11:25:01* Test Item Value Reference Range Interpretation Comments Creatine kinase (test code = 2157-6) 247 U/L 39-308 [facility] MethodistCTA Head W Wo [id number] 11:18:56Hm Interface, Radiology Results 06/22/2019 11:22 AM CSTEXAMINATION: CT ANGIOGRAM HEAD W WO CONTRASTCLINICAL HISTORY: Stroke. Follow up. Evaluate for acute large vessel occlusion.COMPARISON: CT brain from earlier todayTECHNIQUE: Imaging of the intracranial circulation was obtained [...] radiation exposure while achieving a diagnostic quality image.FINDINGS:There is no evidence of acute large vessel occlusion at the level of the [place]. There is flow in both posterior communicating arteries with small P1 segments.The distal right vertebral artery is dominant. The distal vertebral and basilar arteries and the distal internal carotid arteries do not show evidence of significant focal stenosis. I do not see focal aneurysm or ar terial venous malformation.The study was not performed for proper imaging of the brain. There is good enhancement in the upper dural venous sinuses.IMPRESSION:No evidence of acute large vessel occlusion at the level of the [place]. [id number] MethodistCTA Neck W Wo [id number] 11:17:28Hm Interface, Radiology Results 06/22/2019 11:20 AM CSTEXAMINATION: CT ANGIOGRAM NECK W WO CONTRASTCLINICAL HISTORY: Stroke follow upCOMPARISON: None.TECHNIQUE:Neck CTA with multi-planar MIP and volumetric rendering (3D) afte r bolus intravenous iodinated contrast administration was performed.All CT image s were acquired using low-dose technique with automated exposure control.FINDING S:Common origin of the brachiocephalic and left common carotid arteries. Tortuos ity of the proximal great vessels. Dominant right vertebral artery. Mild partial ly calcified arteriosclerosis of the proximal left internal carotid artery.The b ilateral cervical carotid and vertebral arterial systems appear widely patent wi thout evidence of dissection or hemodynamically significant stenosis by NASCET c antonette.Limited evaluation of the neck adjacent evidence of abnormal mass, colle ction, or suspicious osseous lesion. Median sternotomy wires. See dedicated CTA head report for intracranial findings.IMPRESSION:No significant cervical carotid or vertebral artery stenosis.[id number] MethodistProthrombin time with [id number] 10:47:30* Test Item Value Reference Range Interpretation Comments Prothrombin time (test code = 5902-2) 13.0 11.5- 14.5 sec INR (test code = 12618-4) 1.0 Th e International Normalized Ratio (INR) is a therapeutic monitoring tool for patients who are stable on oral anticoagulant therapy. An INR of 2.0-3.0 is suggested for deep vein thrombosis/pulmonary embolism. Nic MethodistPartial thromboplastin time, [id number] 10:47:30* Test Item Value Reference Range Interpretation Comments PTT (test code = 22673-2) 23.5 23.0- 36.0 sec PTT therapeutic range for unfractionated heparin is61.0-112.0 seconds which corresponds to Anti-Xa0.3-0.7 U/ml. Nic JoseistCT Stroke Brain Wo [id number] 10:34:16Hm Interface, Radiology Results 06/22/2019 10:37 AM CSTEXAMINATION: CT STROKE BRAIN WO CONTRASTCLINICAL INFORMATION: Focal neuro deficit > 6 hrs stroke suspectedCOMPARISON: None available at the time of study.TECHNIQUE: CT imaging was performed with contrast using iterative reconstruction technique and/or automated exposure control to reduce radiation dose.CONTRAST: No IV contrast administered.FINDINGS:CEREBRUM:*Exam shows no evidence of acute intracranial hemorrhage, mass effect, midline shift, hydrocephalus or brain herniation*There is a background of moderate symmetric volume loss with extensive subcortical and periventricular microangiopathic changes.*Chronic appearing infarcts noted in the left precentral gyrus, left caudate nucleus, right lentiform nucleus and bilateral thalami.CEREBELLUM: *No evidence of acute hemorrhage, mass effect, mi dline shift, hydrocephalus or brain herniation*There is a chronic cortical infar ct involving the right inferior cerebellar lobeBRAINSTEM: *No evident edema, hem orrhage, mass, midline shift or acute infarction*No evidence of inappropriate at rophy.CSF SPACES: *Ventricles, cisterns, and sulci are appropriate for age.*No hydrocephalus, subarachnoid hemorrhage, or mass.VASCULAR: *Limited assessment with no evident abnormalities of [place] and dural sinuses. 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 FINISHER failure or compromise Critical care was time spent personally by me on the following activities: Ordering and performing treatments and interventions, ordering and review of laboratory studies, ordering and review of radiographic studies, pulse oximetry, re-evaluation of patient's condition and discussions with Attila Benjamin ED Preliminary Interpretation - Not an [id number] 10:12:Gladis Maxwell MD 06/22/2019 11:51 AMECG ED Preliminary Interpretation - Not an OrderPerformed by: Gladis Silver MDAuthorized by: Gladis Silver MD ECG reviewed by ED Physician in the absence of a integration assistant: no Interpretation: Interpretation: normal Rate: ECG rate: 92 ECG rate assessment: normal Rhythm: Rhythm: sinus rhythm QRS: QRS axis: Normal QRS intervals: NormalConduction: Conduction: normal ST segments: ST segments: Non-specificT waves: T waves: non-specific [facility]
[2020-03-17] MEDS ORDERED: ACETAMINOPHEN 325 MG TAB PO PRN (21:00)
[2020-03-17] MEDS ORDERED: ONDANSETRON HCL INJ 2MG/ML 2ML 2 MG/ML VIAL IV PRN (21:00)
[2020-03-17] MEDS ORDERED: SODIUM CHLORIDE 0.9% 1000ML 1,000 ML IV ONE (21:00)
--- OUTSIDE RECORDS SUMMARY | 2020-03-17 21:06 | XMS REPORT | Clinical Summary ---
Author Author [facility] Address Unknown Phone Unavailable Care Team Providers Care Advanced Nursing Professor Name Role Phone Asked, No Pcp PCP [...] tissue; Acute CVA (cerebrovascular accident) (HCC) 06/22/2019 [facility] Internal [place] dicine - Encounter 07/09/2019 after 03/17/2019 Immunizations [...] Comments Vital Sign 141/75 07/09/2019 3:42 PM [facility] Blood Pressure 83 07/09/2019 3:42 PM [facility] Pulse 36.8 C (98.3 F) 07/09/2019 3:42 PM [facility] Temperature 15 07/09/2019 3:42 PM [facility] Respiratory Rate 96% 07/09/2019 3:42 PM [facility] Oxygen Saturation - - Inhaled Oxygen Concentration - - Weight 170.2 cm (5' 7") 06/22/2019 10:41 AM [facility] Height - - Body Mass Index Plan of Treatment Health Maintenance Due Date Last Done Comments COLONOSCOPY SCREENING 2000 SHINGLES VACCINES (#1) 2000 65+ PNEUMOCOCCAL VACCINE 09/29/2015 (1 of 2 - PCV13) INFLUENZA VACCINE 04/20/2020 07/09/2019 Procedures Comments Procedure Name Priority Date/Time Associated Diag nosis POC GLUCOSE Routine 07/02/2019 4:09 AM [facility] POC GLUCOSE Routine 07/02/2019 12:32 AM [facility] POC GLUCOSE Routine 07/01/2019 7:26 PM [facility] POC GLUCOSE Routine 07/01/2019 4:25 PM [facility] POC GLUCOSE Routine 07/01/2019 10:54 AM [facility] ESTIMATED GFR STAT 07/01/2019 7:21 AM [facility] BASIC METABOLIC PANEL STAT 07/01/2019 7:21 AM [facility] HC COMPLETE BLD COUNT STAT 07/01/2019 W/AUTO DIFF 7:21 AM [facility] POC GLUCOSE Routine 07/01/2019 5:35 AM [facility] POC GLUCOSE Routine 07/01/2019 1:59 AM [facility] POC GLUCOSE Routine 06/30/2019 8:42 PM [facility] POC GLUCOSE Routine 06/30/2019 4:01 PM [facility] POC GLUCOSE Routine 06/30/2019 11:40 AM [facility] POC GLUCOSE Routine 06/30/2019 5:45 AM [facility] POC GLUCOSE Routine 06/29/2019 8:23 PM [facility] POC GLUCOSE Routine 06/29/2019 2:57 PM [facility] POC GLUCOSE Routine 06/29/2019 11:10 AM [facility] POC GLUCOSE Routine 06/29/2019 5:23 AM [facility] ESTIMATED GFR Routine 06/29/2019 5:00 AM [facility] BASIC METABOLIC PANEL Routine 06/29/2019 5:00 AM [facility] HC COMPLETE BLD COUNT Routine 06/29/2019 W/AUTO DIFF 5:00 AM [facility] POC GLUCOSE Routine 06/29/2019 12:03 AM [facility] POC GLUCOSE Routine 06/28/2019 9:05 PM [facility] POC GLUCOSE Routine 06/28/2019 4:22 PM [facility] POC GLUCOSE Routine 06/28/2019 11:20 AM [facility] POC GLUCOSE Routine 06/28/2019 5:23 AM [facility] POC GLUCOSE Routine 06/28/2019 1:31 AM [facility] POC GLUCOSE Routine 06/27/2019 4:19 PM [facility] POC GLUCOSE Routine 06/27/2019 11:58 AM [facility] ESTIMATED GFR Routine 06/27/2019 8:55 AM [facility] HC COMPLETE BLD COUNT Routine 06/27/2019 W/AUTO DIFF 8:55 AM [facility] BASIC METABOLIC PANEL Routine 06/27/2019 8:55 AM [facility] MAGNESIUM LEVEL Routine 06/27/2019 8:55 AM [facility] PHOSPHORUS LEVEL Routine 06/27/2019 8:55 AM [facility] IONIZED CALCIUM Routine 06/27/2019 8:55 AM [facility] POC GLUCOSE Routine 06/27/2019 8:35 AM [facility] XR ABDOMEN 1 VW PORTABLE STAT 06/27/2019 6:58 AM [facility] POC GLUCOSE Routine 06/27/2019 3:50 AM [facility] POC GLUCOSE Routine 06/26/2019 11:38 PM [facility] POC GLUCOSE Routine 06/26/2019 7:42 PM [facility] POC GLUCOSE Routine 06/26/2019 3:47 PM [facility] POC GLUCOSE Routine 06/26/2019 6:52 AM [facility] ESTIMATED GFR Routine 06/26/2019 3:01 AM [facility] PHOSPHORUS LEVEL Routine 06/26/2019 3:01 AM [facility] MAGNESIUM LEVEL Routine 06/26/2019 3:01 AM [facility] IONIZED CALCIUM Routine 06/26/2019 3:01 AM [facility] HC COMPLETE BLD COUNT Routine 06/26/2019 W/AUTO DIFF 3:01 AM [facility] BASIC METABOLIC PANEL Routine 06/26/2019 3:01 AM [facility] POC GLUCOSE Routine 06/25/2019 11:20 PM [facility] POC GLUCOSE Routine 06/25/2019 7:17 PM [facility] POC GLUCOSE Routine 06/25/2019 4:54 PM [facility] POC GLUCOSE Routine 06/25/2019 11:56 AM [facility] XR ABDOMEN 1 VW Routine 06/25/2019 11:50 AM [facility] POC GLUCOSE Routine 06/25/2019 7:23 AM [facility] SMEAR REVIEW Routine 06/25/2019 3:06 AM [facility] ESTIMATED GFR Routine 06/25/2019 3:06 AM [facility] PHOSPHORUS LEVEL Routine 06/25/2019 3:06 AM [facility] IONIZED CALCIUM Routine 06/25/2019 3:06 AM [facility] MAGNESIUM LEVEL Routine 06/25/2019 3:06 AM [facility] BASIC METABOLIC PANEL Routine 06/25/2019 3:06 AM [facility] HC COMPLETE BLD COUNT Routine 06/25/2019 W/AUTO DIFF 3:06 AM [facility] URINALYSIS, AUTOMATED Routine 06/24/2019 WITH MICROSCOPY 11:43 PM [facility] POC GLUCOSE Routine 06/24/2019 11:13 PM [facility] XR CHEST 1 VW PORTABLE Routine 06/24/2019 10:36 PM [facility] POC GLUCOSE Routine 06/24/2019 7:13 PM [facility] POC GLUCOSE Routine 06/24/2019 4:41 PM [facility] XR ABDOMEN 1 VW STAT 06/24/2019 4:14 PM [facility] ARTERIAL BLOOD GAS STAT 06/24/2019 1:00 PM [facility] ESTIMATED GFR Routine 06/24/2019 3:33 AM [facility] MAGNESIUM LEVEL Routine 06/24/2019 3:33 AM [facility] BASIC METABOLIC PANEL Routine 06/24/2019 3:33 AM [facility] HC COMPLETE BLD COUNT Routine 06/24/2019 W/AUTO DIFF 3:33 AM [facility] MRI BRAIN W WO CONTRAST Routine 06/23/2019 5:05 PM [facility] FL MODIFIED BARIUM Routine 06/23/2019 SWALLOW 3:57 PM [facility] SMEAR REVIEW Routine 06/23/2019 3:41 AM [facility] ESTIMATED GFR Routine 06/23/2019 3:41 AM [facility] MAGNESIUM LEVEL Routine 06/23/2019 3:41 AM [facility] BASIC METABOLIC PANEL Routine 06/23/2019 3:41 AM [facility] HC COMPLETE BLD COUNT Routine 06/23/2019 W/AUTO DIFF 3:41 AM [facility] LIPID PANEL Routine 06/23/2019 3:41 AM [facility] TTE COMPLETE, WO Routine 06/22/2019 CONTRAST, W AGITATED 4:15 PM [facility] SALINE (10082) ESTIMATED GFR STAT 06/22/2019 10:53 AM [facility] CREATINE KINASE, TOTAL STAT 06/22/2019 (CPK) 10:53 AM [facility] COMPREHENSIVE METABOLIC STAT 06/22/2019 PANEL 10:53 AM [facility] POC GLUCOSE Routine 06/22/2019 10:40 AM [facility] ECG 12-LEAD STAT 06/22/2019 10:[address] ANGIOGRAM HEAD W WO STAT 06/22/2019 CONTRAST 10:[address] ANGIOGRAM NECK W WO STAT 06/22/2019 CONTRAST 10:29 AM [facility] PARTIAL THROMBOPLASTIN STAT 06/22/2019 TIME (PTT) 10:27 AM [facility] PROTHROMBIN TIME WITH INR STAT 06/22/2019 10:27 AM [facility] HC COMPLETE BLD COUNT STAT 06/22/2019 W/AUTO DIFF 10:[address] STROKE BRAIN WO STAT 06/22/2019 CONTRAST 10:22 AM [facility] ECG ED PRELIMINARY Routine 06/22/2019 INTERPRETATION 10:12 AM [facility] [place] CRITICAL CARE, E/M Routine 06/22/2019 30-74 MINUTES 10:12 AM [facility] after 03/17/2019 Results * POC glucose (07/02/2019 4:09 AM [facility]) Only the most recent of 38 results within the time period is included. Pathologist [facility] POC glucose 82 65 - 99 mg/dL [facility] Specimen Performing Organization Address [facility] Ph one Number [facility] DEPARTMENT OF [address] [place] [address] [place] [address] PATHOLOGY AND GENOMIC MEDICINE [address] * Estimated GFR (07/01/2019 7:21 AM [facility]) Only the most recent of 8 results within the time period is included. [facility] Estimated GFR 79 mL/min/1.73 m2 [facility] Comment: [facility] Interpretation G1 >=90 Normal or high G2 [...] 2014. Specimen Plasma specimen Performing Organization Address [facility] Ph one Number [facility] DEPARTMENT OF [address] [place] [address] [place] [address] PATHOLOGY AND GENOMIC MEDICINE [address] * CBC with platelet and differential (07/01/2019 7:21 AM [facility]) Only the most recent of 8 results within the time period is included. [facility] WBC 7.13 4.50 - 11.00 k/uL [facility] RBC 5.98 4.40 - 6.00 m/uL [facility] HGB 14.0 14.0 - 18.0 g/dL [facility] HCT 45.3 41.0 - 51.0 % [facility] MCV 75.8 (L) 82.0 - 100.0 fL [facility] MCH 23.4 (L) 27.0 - 34.0 pg [facility] MCHC 30.9 (L) 31.0 - 37.0 g/dL [facility] RDW - SD 42.2 37.0 - 55.0 fL [facility] MPV 11.5 8.8 - 13.2 fL [facility] Platelet count 172 150 - 400 k/uL [facility] Nucleated RBC 0.00 /100 WBC [facility] Neutrophils 61.9 39.0 - 69.0 % [facility] Lymphocytes 22.9 (L) 25.0 - 45.0 % [facility] Monocytes 10.7 (H) 0.0 - 10.0 % [facility] Eosinophils 3.8 0.0 - 5.0 % [facility] Basophils 0.4 0.0 - 1.0 % [facility] Specimen Blood Performing Organization Address [facility] Ph one Number [facility] [place]PARTMENT [place] [id number] [place] [address] [place], [place] [address] PATHOLOGY AND GENOMIC MEDICINE [address] [place] [id number] [facility] * Basic metabolic panel (07/01/2019 7:21 AM [facility]) Only the most recent of 7 results within the time period is included. Sodium 139 135 - 148 mEq/L [facility] Potassium 4.0 3.5 - 5.0 mEq/L [facility] Chloride 106 98 - 112 mEq/L [facility] CO2 26 24 - 31 mEq/L [facility] Anion gap 7@ANIO 7 - 15 mEq/L [facility] BUN 17 8 - 23 mg/dL [facility] Creatinine 1.10 0.70 - 1.20 mg/dL [facility] Glucose 101 (H) 65 - 99 mg/dL [facility] Calcium 9.8 8.8 - 10.2 mg/dL [facility] Specimen Plasma specimen Performing Organization Address City[facility] Ph one Number [facility] [place] [address] [address] [place] [address] 58 PATHOLOGY AND GENOMIC MEDICINE [facility] [address] [address] * Phosphorus level (06/27/2019 8:55 AM [facility]) Only the most recent of 3 results within the time period is included. Phosphorus 3.3 2.4 - 4.5 mg/dL [facility] Specimen Plasma specimen Performing Organization Address [facility] Ph one Number [facility] [place] [address] [address] [place] [address] 58 PATHOLOGY AND GENOMIC MEDICINE [facility] [address] [address] * Magnesium level (06/27/2019 8:55 AM [facility]) Only the most recent of 5 results within the time period is included. Magnesium 2.1 1.6 - 2.4 mg/dL [facility] Specimen Plasma specimen Performing Organization Address [facility] Ph one Number [facility] [place] [address] [address] [place] [address] PATHOLOGY AND GENOMIC MEDICINE [facility] [address] [address] * Ionized calcium (06/27/2019 8:55 AM [facility]) Only the most recent of 3 results within the time period is included. pH 7.48 [facility] Ionized calcium 1.14 1.11 - 1.32 mmol/L [facility] Specimen Plasma specimen Performing Organization Address [facility] Ph one Number [facility] [place] [address] [address] [place] [address] PATHOLOGY AND GENOMIC MEDICINE [facility] [address] * XR Abdomen 1 Vw Portable (06/27/2019 6:58 AM [facility]) Specimen Narrative Performed At EXAMINATION: XR ABDOMEN 1 VW PORTABLE [facility] INDICATION: cortrak placement COMPARISON:June 25, 2019 IMPRESSION: 1.Weighted tip feeding tube projects at the proximal jejunum. A partially visualized second catheter projects ove r the right upper quadrant. 2.Contrast is present within the large bowel. Bowel gas pattern is otherwise nonspecific. 3.Osseous degenerative changes. [id number] Procedure Note Interface, Radiology Results Incoming - 06/27/2019 7:44 AM [facility] EXAMINATION: XR ABDOMEN 1 VW PORTABLE INDICATION: cortrak placement COMPARISON:June 25, 2019 IMPRESSION: 1.Weighted tip feeding tube projects at the proximal jejunum. A partially visualized second catheter projects over the right upper quadrant. 2.Contrast is present within the large b owel. Bowel gas pattern is otherwise nonspecific. 3.Osseous degenerative changes. [id number] Performing Organization Address [facility] one Number [facility] [address] [place] [address] * XR Abdomen 1 Vw (06/25/2019 11:50 AM [facility]) Only the most recent of 2 results within the time period is included. Specimen Narrative Performed At Study:XR ABDOMEN 1 VW [facility] History:Feeding difficulties, Cortrak p lacement COMPARISON:Yesterday IMPRESSION: Single view abdomen. The tip of the bhoff tube is in the third segment of the duodenum. Contrast is seen within the c olon. No bowel distention or free air. Bones are stable. [id number] Procedure Note Interface, Radiology Results Incoming - 06/25/2019 12:44 PM [facility] Study:XR ABDOMEN 1 VW History:Feeding difficulties, Cortrak placement COMPARISON:Yesterday IMPRESSION: Single view abdomen. The tip of the Dobbhoff tube is in the third segment of the duodenum. Contrast is seen within the colon. No bowel distention or free air. Bones are stable. [id number] Performing Organization Address [facility] one Number [facility] [address] [place] [address] * Smear review (06/25/2019 3:06 AM [facility]) Only the most recent of 2 results within the time period is included. Platelet slide Cyndi slt decr [facility] review [facility] Specimen Performing Organization Address [facility] one Number [facility] [place] [address] [address] [place], [place] [address] PATHOLOGY AND GENOMIC MEDICINE [facility] [address] [place] [address] [facility] * Urinalysis, automated with microscopy (06/24/2019 11:43 PM [facility]) Color, UA Yellow [facility] Appearance, UA Clear [facility] Specific 1.010 1.001 - 1.035 [facility] gravity, UA [facility] pH, UA 5.0 5.0 - 8.5 [facility] Protein, UA Negative Negative [facility] Glucose, UA Negative Negative [facility] Ketones, UA 1+ (A) Negative [facility] Bilirubin, UA Negative Negative [facility] Blood, UA Negative Negative [facility] Nitrite, UA Negative Negative [facility] Urobilinogen, Negative <2.0 [facility] Leukocyte Negative Negative [facility] esterase, UA [facility] Epithelial Few Few /HPF [facility] cells, [facility] WBC, UA 0-5 0 - 1 /HPF [facility] RBC, UA 0-5 0 - 5 /HPF [facility] Bacteria, UA Few None seen [facility] Yeast, UA None seen [facility] Yeast with None seen [facility] pseudohyphae, [facility] Specimen Urine Performing Organization Address City/State/[facility] Ph one Number [facility] [place] [address] [address] [place], [place] [address] PATHOLOGY AND GENOMIC MEDICINE [facility] [address] [place] [address] [facility] * XR Chest 1 Vw Portable (06/24/2019 10:36 PM [facility]) Specimen Narrative Performed At EXAMINATION: XR CHEST 1 VW PORTABLE [facility] CLINICAL HISTORY: AMS hypoxia COMPARISON: None . IMPRESSION: 1.Heart size is normal. Median sternoto my wires overlie the midline. 2.A Dobbhoff tube extends into the uppe r abdomen with the tip in the third portion duodenum. There is residual con trast within the colon. 3.Lungs are clear. 4.No pneumothorax.. [facility]-[id number] Procedure Note Interface, Radiology Results Incoming - 06/24/2019 10:51 PM [facility] EXAMINATION: XR CHEST 1 VW PORTABLE CLINICAL HISTORY: AMS hypoxia COMPARISON: None . IMPRESSION: 1.Heart size is normal. Median sternotom y wires overlie the midline. 2.A Dobbhoff tube extends into the upper abdomen with the tip in the third portion duodenum. There is residual contrast within the colon. 3.Lungs are clear. 4.No pneumothorax.. [facility]-[id number] Performing Organization Address City/[facility] Ph one Number [facility] [address] [place] [address] * Arterial blood gas (06/24/2019 1:00 PM [facility]) pH, arterial 7.42Comment: [id number] 7.35 - 7.45 [facility] pCO2, arterial 34 (L) 35 - 45 mmHg [facility] pO2, arterial 75 (L) 80 - 90 mmHg [facility] Bicarbonate, 22.7 21.0 - 28.0 mmol/L [facility] Base excess, -2 -2 - 2 mEq/L [facility] O2 saturation, 97 95 - 100 % [facility] FiO2, inspired 21 % [facility] O2% [facility] Specimen Blood Performing Organization Address City/[facility] Ph one Number [facility] [place] [address] [address] [place], [place] [address] PATHOLOGY AND GENOMIC MEDICINE [facility] [address] [place] [address] [facility] * MRI Brain W Wo Contrast (06/23/2019 5:05 PM [facility]) Specimen Narrative Performed At EXAMINATION: MRI BRAIN [...] ray radiata. Old infarcts and chronic changes. [id number] Procedure Note Hm Interface, Radiology Results Incoming - 06/23/2019 5:30 PM [facility] EXAMINATION: MRI BRAIN W WO CONTRAST CLINICAL [...] ray radiata. Old infarcts and chronic changes. [id number] Performing Organization Address [facility] one Number [facility] [address] [place] [address] * [place] Modified Barium Swallow (06/23/2019 3:57 PM [facility]) Specimen Narrative Performed At EXAMINATION: FL MODIFIED [...] to Speech Pathology report for further details. [id number] Procedure Note Interface, Radiology Results Incoming - 06/23/2019 4:56 PM [facility] EXAMINATION: FL MODIFIED BARIUM SWALLOW CLINICAL HISTORY: [...] to Speech Pathology report for further details. [id number] Performing Organization Address [facility] one Number [facility] [address] [place] [address] * Lipid panel (06/23/2019 3:41 AM [facility]) Cholesterol 171 <200 mg/dL [facility] Triglycerides 46 (A) <150 mg/dL [facility] HDL cholesterol 81 >40 mg/dL [facility] LDL cholesterol 89Comment: Result obtained by <100 mg/dL [facility] direct LDL measurement [facility] Lipid panel SeeBelow [facility] interpretation Comment: [facility] Total Cholesterol (mg/dL) [facility] <200 Desirable 200-239 Borderline-high >=240 High Triglycerides [...] mg/dL) Specimen Plasma specimen Performing Organization Address City/State/Zipcofl Ph one Number [facility] [place] [id number] [place] [address] [place], [place] [address] PATHOLOGY AND GENOMIC MEDICINE [facility] [address] [place] [address] [facility] * Echocardiogram complete w contrast and 3D if needed (06/22/2019 4:15 PM [facility]) AoV Area, Vmax 2.68 cm2 SYNGO AoV [...] LV EF,BP 56.57 % HM SYNGO [place],d A2C 8.38 cm HM SYNGO [place],d A4C 7.40 cm HM SYNGO [place],s A2C 7.45 cm HM SY[facility] [place],s A4C 5.29 cm HM SYNGO LV,s 2.78 [...] SYNGO Aortic Root 3.60 cm HM SY[facility] [place] 4.78 HM [facility] Grad [place] Diat Victor Manuel 1.09 HM SYNGO [...] evidence of intracardiac shunt. Performing Organization Address [facility] Ph one Number [facility] [address] [place] [address], * Creatine kinase, total (CPK) (06/22/2019 10:53 AM [facility]) Creatine kinase 247 39 - 308 U/L [facility] Specimen Plasma specimen Performing Organization Address City/[facility] Ph one Number [facility] [place] [address] [place] [address] [place] [address] PATHOLOGY AND GENOMIC MEDICINE [facility] [address] [place] [address] [place] [address] [facility] * Comprehensive metabolic panel (06/22/2019 10:53 AM [facility]) Sodium 132 (L) 135 - 148 mEq/L [facility] Potassium 3.9 3.5 - 5.0 mEq/L [facility] Chloride 100 98 - 112 mEq/L [facility] CO2 17 (L) 24 - 31 mEq/L [facility] Anion gap 15@ANIO 7 - 15 mEq/L [facility] BUN 18 8 - 23 mg/dL [facility] Creatinine 1.00 0.70 - 1.20 mg/dL [facility] Glucose 105 (H) 65 - 99 mg/dL [facility] Calcium 9.3 8.8 - 10.2 mg/dL [facility] Protein 6.9 6.3 - 8.3 g/dL [facility] Comment: [facility] Tbjedgf5450.6-7.0 g/dL [facility] 1 qeyd3167.4-7.6 g/dL 7 months-7qwry552.1-7.3 g/dL 1-2 .6-7.5 g/dL >3 zlirs255.0-8.0 g/dL 18-2934260.3-8.3 g/dL Albumin 4.0 3.5 - 5.0 g/dL [facility] A/G ratio 1.4 0.7 - 3.8 [facility] Alkaline 58 40 - 129 U/L [facility] phosphatase [facility] AST 20 10 - 50 U/L [facility] ALT 9 5 - 50 U/L [facility] Total bilirubin 0.5 0.0 - 1.2 mg/dL [facility] Specimen Plasma specimen Performing Organization Address City/State/[facility] Ph one Number [facility] [place] [address] [address] [place] [address] PATHOLOGY AND GENOMIC MEDICINE [facility] [address] [place] [address] [facility] * ECG 12 lead (06/22/2019 10:38 AM [facility]) Ventricular 92 [facility]USE rate Atrial rate 92 [facility] MUSE [place] interval 154 [facility] QRSD interval 72 [facility] QT interval 382 [facility] QTC interval 472 [facility] P axis 1 48 [facility] QRS axis 1 33 [facility] T wave axis -7 [facility] MUSE EKG impression Normal sinus rhythm with sinus [facility] MU SE arrhythmia-^^^ Poor data quality, interpretation may be adversely affected-Possible Left atrial enlargement-Left ventricular hypertrophy-ST elevation, consider early repolarization, pericarditis, or injury-Nonspecific T wave abnormality-Prolonged QT-Abnormal ECG-No previous ECGs available- Specimen Narrative Performed At This result has an attachment that is n ot available. Performing Organization Address City/State/Zipcode Ph one Number [facility] MUSE [address] [place] [address] * CTA Head W Wo Contrast (06/22/2019 10:31 AM [facility]) Specimen Narrative Performed At EXAMINATION: CT ANGIOGRAM [...] jose occlusion at the level of the [place]. There is flow in both chief gauger ior communicating arteries with small P1 segments. [...] occlu ollie at the level of the [place]. [id number] Procedure Note Interface, Radiology Results Incoming - 06/22/2019 11:22 AM [facility] EXAMINATION: CT ANGIOGRAM HEAD W WO CONTRAST [...] vessel occlusion at the level of the [place]. There is flow in both [...] vessel occlusion at the level of the [place]. [facility]-[id number] Performing Organization Address City/State/Zipcode Ph one Number [facility] [address] [place] [address] * CTA Neck W Wo Contrast (06/22/2019 10:29 AM [facility]) Specimen Narrative Performed At EXAMINATION: CT ANGIOGRAM [...] cervical carotid or vert ebral artery stenosis. [id number] Procedure Note Interface, Radiology Results Incoming - 06/22/2019 11:20 AM [facility] EXAMINATION: CT ANGIOGRAM NECK W WO CONTRAST [...] significant cervical carotid or vertebral artery stenosis. [id number] Performing Organization Address [facility] one Number [facility] [address] [place] [address] * Partial thromboplastin time, activated (06/22/2019 10:27 AM METAL CASTER) PTT 23.5 23.0 - 36.0 sec RHEEMS Comment: GAMA DOE PTT therapeutic range for [facility] unfractionated heparin is 61.0-112.0 seconds which corresponds to Anti-Xa 0.3-0.7 U/ml. Specimen Blood Performing Organization Address [facility] one Number [facility] DEPARTMENT OF [address] [place] [address] [place] [id number] 58 PATHOLOGY AND GENOMIC MEDICINE RHEEMS MORMON CLEAR [address] [place] [address] * Prothrombin time with INR (06/22/2019 10:27 AM METAL CASTER) Prothrombin 13.0 11.5 - 14.5 sec RHEEMS time [facility] INR 1.0 RHEEMS Comment: GAMA DOE The International Normalized [facility] Ratio (INR) is a therapeutic monitoring tool for patients who are stable on oral anticoagulant therapy. An INR of 2.0-3.0 is suggested for deep vein thrombosis/pulmonary embolism. Specimen Blood Performing Organization Address [facility] one Number [facility] DEPARTMENT OF [address] [place] [address] [place] [id number] 58 PATHOLOGY AND GENOMIC MEDICINE RHEEMS GAMA DOE [address] [place] [address] * CT Stroke Brain Wo Contrast (06/22/2019 10:22 AM METAL CASTER) Specimen Narrative Performed At EXAMINATION: CT STROKE [...] assessment with no evident abn ormalities of [place] and dural sinuses. SKULL: *No [...] at 06/22/2019 10:32 AM who verbalized understanding. [id number] Procedure Note Hm Interface, Radiology Results Incoming - 06/22/2019 10:37 AM METAL CASTER EXAMINATION: CT STROKE BRAIN WO CONTRAST CLINICAL [...] *Limited assessment with no evident abnormalities of [place] and dural sinuses. SKULL: *No [...] at 06/22/2019 10:32 AM who verbalized understanding. [id number] Performing Organization Address City/State[facility] one Number HM [facility] [address] [place] [address] * ECG ED Preliminary Interpretation - Not an Order (06/22/2019 10:12 AM METAL CASTER) Narrative Performed At Gladis Silver MD 06/22/2019 11:51 AM ECG ED Preliminary Interpretation - Not an Order Performed by: Gladis Silver MD Authorized by: Gladis Silver MD ECG reviewed by ED Physician in the abs ence of a line erector: no Interpretation: Interpretation: normal Rate: ECG rate: 92 ECG rate assessment: normal Rhythm: Rhythm: sinus rhythm QRS: QRS axis: Normal QRS intervals: Normal Conduction: Conduction: normal ST segments: ST segments: Non-specific T waves: T waves: non-specific * CRITICAL CARE (06/22/2019 10:12 AM METAL CASTER) Narrative Performed At Gladis Silver MD 06/22/2019 11:51 AM Critical Care Performed by: Gladis Silver MD Authorized by: Gladis Silver MD Critical care provider statement: Critical care time (minutes): 40 Critical care time was exclusive of: Separately billable procedures and treating other patients Critical care was necessary to treat or prevent imminent or life-threatening deterioration of the f ollowing conditions: CRANE OPERATOR CAB failure or compromise Critical care was time [...] Advance Directives For more information, please contact: [phone] Patient Lab Systems Analyst Explanation Type Date Recorded Advance Directives, Living Will and Medical Power of Extruding Press Adjuster Date Inactivated Comments Code Status Date Activated 07/09/2019 10:43 PM Full Code 06/22/2019 1:36 PM Code Status decision reached by: Patient
--- OUTSIDE RECORDS SUMMARY | 2020-03-17 21:06 | XMS REPORT | Continuity of Care Document ---
Author Author [facility] Organization [facility] Address [address] [place] [address] Phone Unavailable Care Team Providers Care Paste Mixer Liquid Name Role Phone Asked, Pcp No PCP [...] Comments Source Sex Assigned At Kemal cheema [facility] Alcohol intake 2019-06-22 00:00:00 2019-06-22 00:00:00 Current [...] temperature 2019-07-09 15:42:48 36.83 Kelsi Regina ton [facility] Respiratory rate 2019-07-09 15:42:48 15 /min [place] [facility] Oxygen saturation in Arterial blood by Pulse [...] COUNT W/AUTO DIFF 2019-07-01 07:21:00 TeqwimSegun guerrero [facility] BASIC METABOLIC PANEL 2019-07-01 07:21:00 TeqwimSegun guerreroto n Voodoo ESTIMATED GFR 2019-07-01 07:21:00 TeqwSegun [place] Meth [...] COUNT W/AUTO DIFF 2019-06-29 05:00:00 TeqwSegun [place] [facility] BASIC METABOLIC PANEL 2019-06-29 05:00:00 TeqwimSegun guerreroto n Voodoo ESTIMATED GFR 2019-06-29 05:00:00 TeqwimSegun guerrero Meth [...] odist IONIZED CALCIUM 2019-06-27 08:55:00 Di Francis [facility] PHOSPHORUS LEVEL 2019-06-27 08:55:00 Di Francisto n Voodoo MAGNESIUM LEVEL 2019-06-27 08:55:00 Di Francis [facility] BASIC METABOLIC PANEL 2019-06-27 08:55:00 Di Francis [facility] HC COMPLETE BLD COUNT W/AUTO DIFF 2019-06-27 08:55:00 Di Francis [facility] ESTIMATED GFR 2019-06-27 08:55:00 Di Francis Katjustine Lucero Voodoo POC GLUCOSE 2019-06-27 08:35:00 ThiagoSegun odist XR ABDOMEN 1 VW PORTABLE 2019-06-27 06:58:37 EmmaSegun [place] ston [facility]oo POC GLUCOSE 2019-06-27 03:50:00 EmmaSegun [place] Meth odist POC GLUCOSE 2019-06-26 23:38:00 BostonSegun arriola Meth odist POC GLUCOSE 2019-06-26 19:42:00 TeSegun arriola Meth odist POC GLUCOSE 2019-06-26 15:47:00 EmmaSegun [place] Meth odist POC GLUCOSE 2019-06-26 06:52:00 TebrunoSegun [place] Meth odist BASIC METABOLIC PANEL 2019-06-26 03:01:00 Di Francis [facility] HC COMPLETE BLD COUNT W/AUTO DIFF 2019-06-26 03:01:00 Di Francis [facility] IONIZED CALCIUM 2019-06-26 03:01:00 Di Francis V[facility]oo MAGNESIUM LEVEL 2019-06-26 03:01:00 Di Francis [facility] PHOSPHORUS LEVEL 2019-06-26 03:01:00 Di Francisto n Voodoo ESTIMATED GFR 2019-06-26 03:01:00 Di Francis [facility] POC GLUCOSE 2019-06-25 23:20:00 TeqwimSegun guerrero Meth odist POC GLUCOSE 2019-06-25 19:17:00 TeqwimSegun guerrero Meth odist POC GLUCOSE 2019-06-25 16:54:00 TebrunoimSegun guerrero Meth odist POC GLUCOSE 2019-06-25 11:56:00 TebrunoimSegun guerrero Meth odist XR ABDOMEN 1 VW 2019-06-25 11:50:00 JasDai diaz Nic Meth odist POC GLUCOSE 2019-06-25 07:23:00 Tebrunoimcesar Segun Lucero Meth odist HC COMPLETE BLD COUNT W/AUTO DIFF 2019-06-25 03:06:00 ChanceAliceromina Lucero [facility] BASIC METABOLIC PANEL 2019-06-25 03:06:00 ChanceBirgit Kemal ston Voodoo MAGNESIUM LEVEL 2019-06-25 03:06:00 ChanceBirgitromina Lucero M ethodist IONIZED CALCIUM 2019-06-25 03:06:00 Di Francis [facility] PHOSPHORUS LEVEL 2019-06-25 03:06:00 Di Francis [facility] ESTIMATED GFR 2019-06-25 03:06:00 Di Francis [facility] SMEAR REVIEW 2019-06-25 03:06:00 Di Francis [facility] URINALYSIS, AUTOMATED WITH MICROSCOPY 2019-06-24 23:43:00 Johanna Grove [facility]ood[facility] POC GLUCOSE 2019-06-24 23:13:00 Segun Das odist XR CHEST 1 VW PORTABLE 2019-06-24 22:36:32 Johanna Baker POC GLUCOSE 2019-06-24 19:13:00 TeqwSegun [place] odist POC GLUCOSE 2019-06-24 16:41:00 Segun Das odist XR ABDOMEN 1 VW 2019-06-24 16:14:57 IamDai Lucero Magdalena odreagan ARTERIAL BLOOD GAS 2019-06-24 13:00:00 Dai Vitale ethodist HC COMPLETE BLD COUNT W/AUTO DIFF 2019-06-24 03:33:00 Alice Fletcher [facility] BASIC METABOLIC PANEL 2019-06-24 03:33:00 JuanBirgit beard Kemal cheema Voodoo MAGNESIUM LEVEL 2019-06-24 03:33:00 Birgit Fletcher ethodist ESTIMATED GFR 2019-06-24 03:33:00 Birgit Fletcher ethodist MRI BRAIN W WO CONTRAST 2019-06-23 17:05:24 Dai Vitale [facility]oodoo FL MODIFIED BARIUM SWALLOW 2019-06-23 15:57:01 Dai Vitale LIPID PANEL 2019-06-23 03:41:00 DakotaGladis calvert ethodist HC COMPLETE BLD COUNT W/AUTO DIFF 2019-06-23 03:41:00 JuanAlice beard [facility] BASIC METABOLIC PANEL 2019-06-23 03:41:00 Birgit Fletcher Kemal cheema Voodoo MAGNESIUM LEVEL 2019-06-23 03:41:00 Birgit Fletcher ethodist ESTIMATED GFR 2019-06-23 03:41:00 Birgit Fletcher ethodist SMEAR REVIEW 2019-06-23 03:41:00 Birgit Fletcher ethodist TTE COMPLETE, WO CONTRAST, W AGITATED SALINE (60554) 2019-06 16:15:00 Lorena Monteiro Vood[facility] COMPREHENSIVE METABOLIC PANEL 2019-06-22 10:53:00 CheyenneNatalyrajni Joss Lucero [facility] CREATINE KINASE, TOTAL (CPK) 2019-06-22 10:53:00 Cheyenne Gladis Im run Lucero [facility] ESTIMATED GFR 2019-06-22 10:53:00 CheyenneNatalyrajni Roxana Morgan [...] BRAIN WO CONTRAST 2019-06-22 10:22:00 Gladis Silver [place] [facility], E/M 30-74 MINUTES 2019-06-22 10:12:16 Justine Silver ECG ED PRELIMINARY INTERPRETATION 2019-06-22 10:12:16 Amisha Silver in Roxana Spencer Plan of Care Planned Activity Planned Date Details Comments Source Future Scheduled Test 2020-04-20 00:00:00 INFLUENZA VACCINE [code = INFLUENZA VACCINE] [facility] Future Scheduled Test 2015-09-29 00:00:00 65+ PNEUMOCOCCAL V ACCINE (1 of 2 - PCV13) [code = 65+ PNEUMOCOCCAL VACCINE (1 of 2 - PCV13)] [facility] Future Scheduled Test 2000 00:00:00 COLONOSCOPY SCREEN ING [code = COLONOSCOPY SCREENING] [facility] Future Scheduled Test 2000 00:00:00 SHINGLES VACCINES (#1) [code = SHINGLES VACCINES (#1)] [place] [facility] Encounters Start Date/Time End Date/Time Encounter Type Admission Type [facility] Care Department Encounter ID Source 2019-06-22 00:00:00 2019-07-09 00:00:00 Inpatient NAET DAS [facility] 064 [id number] [place] [facility] Results Test Description Test Time Test Comments Results Result Comments Source CHEST SINGLE (PORTABLE) 2020-03-17 19:20:00 [place] [address] Patient Name: CHANDAN SILVA JR MR #: [id number] : 1950 Age/Sex: 69/M Req #: [id number] Adm Physician: Ordered by: JOSE JERONIMO MD Report #: [id number] Location: ER Room/Bed: Procedure: [id number] DX/CHEST SINGLE (PORTABLE) Exam Date: Exam Time: [...] bronchitis. No focal consolidation identified. Signed by: Jorge White MD on 03/17/2020 7:21 PM Dictated By: JORGE WHITE MD 20 Transcribed By: YARELIS on 03/17/201920 COPY TO: JOSE JERONIMO MD POC glucose 2019-07-02 10:41:58 Test Item POC glucose (test code = 63718-7) 82 mg/dL 65-99 [facility] metabolic rovco9305-64-67 08:03:57* Test Item Value Reference Range Interpretation Comments Sodium (test code = 2951-2) 139 135- 148 mEq/L Potassium (test code = 2823-3) 4.0 3.5- 5.0 mEq/L Chloride (test code = 2075-0) 106 98- 112 mEq/L CO2 (test code = 8-9) 26 24- 31 mEq/L Anion gap (test code = 98415-7) 7@ANIO 7- 15 mEq/L BUN (test code = 3094-0) 17 mg/dL 8-23 Creatinine (test code = 2160-0) 1.10 mg/dL 0.7-1.2 Glucose (test code = 2345-7) 101 mg/dL 65-99 H Calcium (test code = 88100-3) 9.8 mg/dL 8.8-10.2 Lab Interpretation (test code = 23974-7) Abnormal [place] MethodistEstimated [id number] 08:03:57* Test Item Value Reference Range Interpretation Comments Estimated GFR (test code = 5488) 79 mL/min/1.73 m2 Catergory Units InterpretationG1 >=90 Normal or highG2 60-89 Mildly tebxrozhfW6v 45-59 Mildly to moderately cakbnewsmK2q 30-44 Moderately to severely decreasedG4 15-29 Severely decreasedG5 <15 Kidney failureThe eGFR was calculated using the Chronic Kidney Disease Epidemiology Collaboration (CKD-EPI) equation. Interpretation is based on recommendations of the National Kidney Foundation-Kidney Disease Outcomes Quality Initiative (NKF-KDOQI) published in 2014. [facility] with platelet and dskqwbvwhuyd7319-39-22 07:47:02* Test Item Value Reference Range Interpretation Comments WBC (test code = 10384-7) 7.13 4.50- 11.00 k/uL RBC (test code = 84148-9) 5.98 m/uL 4.4-6 HGB (test code = 718-7) 14.0 g/dL 14-18 HCT (test code = 4544-3) 45.3 % 41-51 MCV (test code = 787-2) 75.8 fL 82-100 L MCH (test code = 785-6) 23.4 pg 27-34 L MCHC (test code = 786-4) 30.9 g/dL 31-37 L RDW - SD (test code = 66889-8) 42.2 fL 37-55 MPV (test code = 38724-3) 11.5 fL 8.8-13.2 Platelet count (test code = 47963-7) 172 150- 400 k/uL Nucleated RBC (test code = 51697-2) 0.00 /100 WBC Neutrophils (test code = 43767-2) 61.9 % 39-69 Lymphocytes (test code = 76733-7) 22.9 % 25-45 L Monocytes (test code = 99464-3) 10.7 % 0-10 H Eosinophils (test code = 43314-4) 3.8 % 0-5 Basophils (test code = 68125-6) 0.4 % 0-1 Lab Interpretation (test code = 55791-4) Abnormal [place] MethodistMagnesium ocxli7790-72-48 09:17:36* Test Item Value Reference Range Interpretation Comments Magnesium (test code = 43989-3) 2.1 mg/dL 1.6-2.4 [place] MethodistPhosphorus lryou0543-15-38 09:17:36* Test Item Value Reference Range Interpretation Comments Phosphorus (test code = 2777-1) 3.3 mg/dL 2.4-4.5 [place] MethodistIonized lvupdtn9043-70-88 09:01:51* Test Item Value Reference Range Interpretation Comments pH (test code = 2753-2) 7.48 Ionized calcium (test code = 1995-0) 1.14 mmol/L 1.11-1.32 [place] MethodistXR Abdomen 1 Jptpwpju4061-07-75 07:41:04 Interface, Radiology Results - 06/27/2019 7:44 AM CSTEXAMINATION: XR ABDOMEN 1 PORTABLEINDICATION: cortrak placementCOMPARISON:June 25 9IMPRESSION:1.Weighted tip feeding tube projects at the proximal jejunum. A part ially visualized second catheter projects over the right upper quadrant.2.Contra st is present within the large bowel. Bowel gas pattern is otherwise nonspecific .3.Osseous degenerative changes.[id number] MethodistXR Abdomen 1 Vw 2019-06-25 12:41:42Hm Interface, Radiology Results - 06/25/2019 12:44 PM CSTStudy:XR ABDOMEN 1 VWHistory:Feeding difficulties, Cortrak placementCOMPARISON:YesterdayIMPRESSION:Single view abdomen. The tip of the Dobbhoff tube is in the third segment of the duodenum. Contrast is seen within the colon. No bowel distention or free air. Bones are stable.[id number] [place] MethodistSmear zalugy6664-75-78 03:53:56* Test Item Value Reference Range Interpretation Comments Platelet slide review (test code = 09834-7) Cyndi slt decr [place] MethodistUrinalysis, automated with sozvhnswqc8306-86-98 00:02:10* Test Item Value Reference Range Interpretation Comments Color, UA (test code = 5778-6) Yellow Appearance, UA (test code = 5767-9) Clear Specific gravity, UA (test code = 5811-5) 1.010 1.001-1.035 pH, UA (test code = 5803-2) 5.0 5.0-8.5 Protein, UA (test code = 13937-3) Negative Negative Glucose, UA (test code = 43688-4) Negative Negative Ketones, UA (test code = 2514-8) 1+ Negative A Bilirubin, UA (test code = 5770-3) Negative Negative Blood, UA (test code = 5794-3) Negative Negative Nitrite, UA (test code = 5802-4) Negative Negative Urobilinogen, UA (test code = 86625-9) Negative <2.0 Leukocyte esterase, UA (test code = 5799-2) Negative Negative Epithelial cells, UA (test code = 5787-7) Few Few /HPF WBC, UA (test code = 5821-4) 0-5 0- 1 /HPF RBC, UA (test code = 05486-8) 0-5 0- 5 /HPF Bacteria, UA (test code = 28826-6) Few None seen Yeast, UA (test code = 46538-3) None seen Yeast with pseudohyphae, UA (test code = 38302-2) None seen Lab Interpretation (test code = 06483-4) Abnormal [facility] MethodistXR Chest 1 Aynkdhgu2027-11-94 22:48:36Hm Interface, Radiology Results Incoming - 06/24/2019 10:51 PM CSTEXAMINATION: XR CHEST 1 PORTABLECLINICAL HISTORY: AMS hypoxiaCOMPARISON:None .IMPRESSION:1.Heart size is normal. Median sternotomy wires overlie the midline.2.A Dobbhoff tube extends into the upper abdomen with the tip in the third portion duodenum. There is residual contrast within the colon.3.Lungs are clear.4.No pneumothora x..[facility]-[id number] MethodistArterial blood sfx0659-23-32 13:09:35* Test Item Value Reference Range Interpretation Comments pH, arterial (test code = 2744-1) 7.42 7.35-7.45 NJS289 pCO2, arterial (test code = 2019-8) 34 [...] 21 % Lab Interpretation (test code = 14294-8) Abnormal [place] MethodistEchocardiogram complete w contrast and 3D if ijctdv8301-23-12 18:33:45* Test Item Value Reference Range Interpretation Comments AoV Area, Vmax (test code = 7641829480) 2.68 cm2 AoV Area, VTI (test code = 7628795585) 2.78 cm2 AoV Mean PG (test code = 1306927167) 4.24 mmHg AoV Peak PG (test code = 7125075122) 7.59 mmHg AoV Vmax (test code = 0517478667) 1.38 m/s AoV VTI (test code = 9551673459) 0.23 m IVS,d (test code = 7935761155) 1.32 cm LV,d (test code = 0410003555) 3.93 cm LV EF,A2C (test code = 5597289846) 61.65 % LV EF,A4C (test code = 8704622393) 60.24 % LV EF,BP (test code = 9607843340) 56.57 % Gabriel Bourbon,d A2C (test code = 7747336545) 8.38 cm Gabriel Bourbon,d A4C (test code = 0774343980) 7.40 cm Gabriel Bourbon,s A2C (test code = 6212569234) 7.45 cm Gabriel Bourbon,s A4C (test code = 5475556843) 5.29 cm LV,s (test code = 1391012469) 2.78 cm LV SV,A2C (test code = 8223556964) 50.40 % LV SV,A4C (test code = 2088664662) 41.31 % LV Vol,d A2C (test code = 7049115543) 81.75 mL LV Vol,d A4C (test code = 4095906373) 68.58 ml LV Vol,d BP (test code = 5616530874) 79.47 ml LV Vol,s A2C (test code = 0100334627) 31.36 mL LV Vol,s A4C (test code = 1539138760) 27.27 ml LV Vol,s BP (test code = 9225133410) 34.51 nl LVOT Diam,S (test code = 0079252463) 1.98 cm LVOT Vmax (test code = 1360244146) 1.20 m/s LVOT VTI (test code = 9519708965) 0.20 m LVPWD,d (test code = 8742969212) 1.39 cm TR Vpeak (test code = 8043049734) 2.72 mm/s AR Press Half Time (test code = 0238673239) 694.52 ms MV E A ratio (test code = 6371662627) 0.44 TR pk grad (test code = 5746283679) 24 mmHg E wave decelartion time (test code = 7136687536) 208.99 msec MV Peak A Victor Manuel (test code = 3943935185) 0.80 m/s MV valve area p 1/2 method (test code = 8461738822) 5.35 cm2 MV Peak E Victor Manuel (test code = 7173186813) 0.35 m/s MV stenosis pressure 1/2 time (test code = 7053897519) 41.10 ms AV LVOT peak gradient (test code = 9588265067) 5.72 mmHg LV SYS VOL (test code = 9069786080) 29.01 ml LV PRINCE VOL (test code = 4296328875) 67.32 ml LV SV Teich 2D (test code = 0079111898) 38.32 ml AoV Cusp sep (test code = 7229361267) 1.61 AoV Vmn (test code = 6149871748) 0.97 IVS s 2D (test code = 0693566015) 1.63 AR slope (test code = 3327746858) 2.24 Ar Vmax (test code = 1857925177) 4.80 LA Ao Ratio Mmode (test code = 8561949350) 1.02 LVOT Vmn (test code = 7537229087) 0.79 Ao root annulus (test code = 4654434326) 3.59 cm PV AT (test code = 1241830858) 79.58 msec LVOT mean grad (test code = 7025618688) 2.86 mmHg AR DT (test code = 8229863467) 2137.33 msec AR pk grad (test code = 6103450288) 71.64 mmHg LVPW s PLAX (test code = 0049024933) 1.78 cm MV Decel slope (test code = 4171056702) 1.67 m/s2 LA Vol MOD A4C (test code = 2321122296) 44.90 ml Velocity Ratio (V1/V2) (test code = 4689) 0.87 m/s EF (test code = 3512583609) 56.91 % E/A ratio (test code = 9181563604) 0.44 LVOT area (test code = 9532151314) 3.08 cm2 RVSP (TR) (test code = 4029635645) 29.13 mmHg RA pressure (test code = 5072881507) 5.00 mmHg LA Vol 4C (test code = 5142421042) 45.00 ml RVSP (test code = 9552115531) 29.13 mmHg LA diam s (test code = 2996480962) 3.70 cm Aortic Root (test code = 5808290466) 3.60 cm [place] End Prince Grad (test code = 9887767637) 4.78 [place] End Diat Victor Manuel (test code = 3612560152) 1.09 AR maxPG (test code = 1431036894) 81.84 D E excurs (test code = 6401384476) 1.40 E f slope (test code = 4982183970) 0.05 E prime lat (test code = 4401019001) 0.06 E ilir sept (test code = 7323199835) 0.04 PV acc T slope (test code = 4230927737) 9.60 DENNIS BP EF (test code = 1794119537) 57.00 % LA VOL 2C (test code = 6520983397) 36.00 ml MAGALI (test code = MAGALI) Left ventricular systolic function is normal. There is mild left ventricular concentric hypertrophy. Left Ventricular ejection fraction is 55 - 60%. Spectral Doppler shows impaired relaxation pattern of left ventricular diastolic filling. Saline contrast injection showed no evidence of intracardiac shunt. 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.[id number] MethodistFL Modified Barium Swallow 2019-06-23 16:53:21Hm Interface, [...] refer to Speech Pathology report for further details.[id number] MethodistLipid panel 2019-06-23 04:06:27* Test Item Value Reference Range Interpretation Comments Cholesterol (test code = 2093-3) 171 mg/dL <200 Triglycerides (test code = 2571-8) 46 mg/dL <150 A HDL cholesterol (test code = 2085-9) 81 mg/dL >40 LDL cholesterol (test code = 2089-1) 89 mg/dL <100 Result obtained by direct LDL measurement Lipid panel interpretation (test code = 65028-1) SeeBelow Total Cholesterol (mg/dL) <200 Desirable 200-239 [...] (>=200 mg/dL) Lab Interpretation (test code = 19372-9) Abnormal Nic Larsen 12 royk9148-67-31 11:55:41* Test Item Value Reference Range Interpretation Comments Ventricular rate (test code = 253) 92 Atrial rate (test code = 255) 92 [place] interval (test code = 266) 154 QRSD [...] abnormality-Prolonged QT- Abnormal ECG-No previous ECGs available- [place] MethodistComprehensive metabolic afcqa3782-39-86 11:25:01* Test Item Value Reference Range Interpretation Comments Sodium (test code = 2951-2) 132 135- 148 mEq/L L Potassium (test code = 2823-3) 3.9 3.5- 5.0 mEq/L Chloride (test code = 2075-0) 100 98- 112 mEq/L CO2 (test code = 2027-9) 17 24- 31 mEq/L L Anion gap (test code = 57472-4) 15@ANIO 7- 15 mEq/L BUN (test code = 3094-0) 18 mg/dL 8-23 Creatinine (test code = 2160-0) 1.00 mg/dL 0.7-1.2 Glucose (test code = 2345-7) 105 mg/dL 65-99 H Calcium (test code = 46601-7) 9.3 mg/dL 8.8-10.2 Protein (test code = 2885-2) 6.9 g/dL 6.3-8.3 Lkekcgk5751.6-7.0 g/dL1 xoyv1594.4-7.6 g/dL7 months-6owgb497.1-7.3 g/dL1-2 .6-7.5 g/dL>3 ajsxh232.0-8.0 g/zD38-1240114.3-8.3 g/dL Albumin (test code = 1751-7) 4.0 g/dL 3.5-5 A/G ratio (test code = 1759-0) 1.4 0.7-3.8 Alkaline phosphatase (test code = 6768-6) 58 U/L 40-129 AST (test code = 1920-8) 20 U/L 10-50 ALT (test code = 1742-6) 9 U/L 5-50 Total bilirubin (test code = 1975-2) 0.5 mg/dL 0-1.2 Lab Interpretation (test code = 20175-5) Abnormal [place] MethodistCreatine kinase, total (CPK)2019-06-22 11:25:01* Test Item Value Reference Range Interpretation Comments Creatine kinase (test code = 2157-6) 247 U/L 39-308 [facility] MethodistCTA Head W Wo Ayvyvjbc3913-87-75 11:18:56Hm Interface, Radiology Results 06/22/2019 11:22 AM [...] vessel occlusion at the level of the [place]. There is flow in both [...] vessel occlusion at the level of the [place]. [facility]-[id number] MethodistCTA Neck W Wo Gnnulhio2294-46-27 11:17:28Hm Interface, Radiology Results 06/22/2019 11:20 AM [...] findings.IMPRESSION:No significant cervical carotid or vertebral artery stenosis.[id number] MethodistProthrombin time with YRO6864-22-71 10:47:30* Test Item Value Reference Range Interpretation Comments Prothrombin time (test code = 5902-2) 13.0 11.5- 14.5 sec INR (test code = 14441-4) 1.0 Th e International Normalized Ratio (INR) is a therapeutic monitoring tool for patients who are stable on oral anticoagulant therapy. An INR of 2.0-3.0 is suggested for deep vein thrombosis/pulmonary embolism. Nic MethodistPartial thromboplastin time, obuguzjni0041-34-68 10:47:30* Test Item Value Reference Range Interpretation Comments PTT (test code = 77420-7) 23.5 23.0- 36.0 sec PTT therapeutic range for unfractionated heparin is61.0-112.0 seconds which corresponds to Anti-Xa0.3-0.7 U/ml. Nic JoseistCT Stroke Brain Wo Lcfkrkyi7545-40-60 10:34:16Hm Interface, Radiology Results 06/22/2019 10:37 AM [...] *Limited assessment with no evident abnormalities of [place] and dural sinuses. SKULL: *No [...] at 06/22/2019 10:32 AM who verbalized understanding. [id number] 8JTucson MethodistCRITICAL QEAD7131-73-08 10:12:Gladis Maxwell MD 06/22/2019 11:51 AMCritical CarePerformed by: Gladis Silver [facility]ITAL[facility]horized by: Gladis Silver MD Critical care provider statement: Critical care time (minutes): 40 Critical care time was exclusive of: Separately billable procedures and treating other patients Critical care was necessary to treat or prevent imminent or life-threatening deterioration of the following conditions: [employer] failure or compromise Critical care was time spent personally by me on the following activities: Ordering and performing treatments and interventions, ordering and review of laboratory studies, ordering and review of radiographic studies, pulse oximetry, re-evaluation of patient's condition and discussions with Attila Benjamin ED Preliminary Interpretation - Not an Dhqwt3705-23-71 10:12:Gladis Maxwell MD 06/22/2019 11:51 AMECG ED Preliminary Interpretation - Not an OrderPerformed by: Gladis Silver MDAuthorized by: Gladis Silver MD ECG reviewed by ED Physician in the absence of a laborer aquatic life: no Interpretation: Interpretation: normal Rate: ECG rate: 92 ECG rate assessment: normal Rhythm: Rhythm: sinus rhythm QRS: QRS axis: Normal QRS intervals: NormalConduction: Conduction: normal ST segments: ST segments: Non-specificT waves: T waves: non-specific [facility]
--- NOTE | 2020-03-17 23:35 | NUR ---
Patient arrived to unit from ER via stretcher, in stable condition, no s/s of distress at this time. Patient's wheelchair and gait belt at bedside. Urinal provided. Bed locked and in lowest position, side rails up x3, alarm on, call light placed within reach. Patient instructed to call for assistance if needed, verbalized understanding. All safety measures in place.
[2020-03-17] MEDS ORDERED: LEVETIRACETAM1000 MG PO (23:59)
[2020-03-17] MEDS ORDERED: ATORVASTATIN CA40 MG PO (23:59)
[2020-03-17] MEDS ORDERED: GABAPENTIN300 MG PO (23:59)
[2020-03-17] MEDS ORDERED: TIZANIDINE HCL2 MG PO (23:59)
[2020-03-17] MEDS ORDERED: PANTOPRAZOLE SO40 MG PO (23:59)
[2020-03-17] MEDS ORDERED: AMLODIPINE BESYL5 MG PO (23:59)
[2020-03-17] MEDS ORDERED: LO-DOSE ASPIRIN81 MG PO (23:59)
[2020-03-18] VITALS (9 sets, daily range): BP systolic 129–167; BP diastolic 77–98
--- NOTE | 2020-03-18 | NUR ---
Called sister Machelle ([phone]) and obtained list of home meds.
[2020-03-18] MEDS ORDERED: SODIUM CHLORIDE 0.9% 1000ML 1,000 ML ONE (00:14)
[2020-03-18 06:04] LABS: BASOPHILS % 0.6 % (0.0-1.0); EOSINOPHILS # (AUTO) 0.3 (0.0-0.4); EOSINOPHILS % 5.3 % (0.0-6.0); HEMATOCRIT 42.1 % (38.2-49.6); HEMOGLOBIN 13.1 g/dL (14.0-18.0); LYMPHOCYTES # (AUTO) 1.4 (1.0-3.2); LYMPHOCYTES % 26.9 % (18.0-39.1); MEAN CORPUSCULAR HEMOGLOBIN 23.4 pg (28-32); MEAN CORPUSCULAR HGB CONC 31.1 g/dL (31-35); MEAN CORPUSCULAR VOLUME 75.3 fL (81-99); MONOCYTES # (AUTO) 0.5 (0.2-0.8); MONOCYTES % 10.4 % (4.4-11.3); NEUTROPHILS # (AUTO) 2.9 (2.1-6.9); NEUTROPHILS % 56.4 % (38.7-80.0); PLATELET COUNT 121 x10e3/uL (140-360); RED BLOOD COUNT 5.59 x10e6/uL (4.3-5.7); RED CELL DISTRIBUTION WIDTH 15.8 % (11.7-14.4)
[2020-03-18 06:39] LABS: ALANINE AMINOTRANSFERASE 33 IU/L (0-55); ALBUMIN 3.5 g/dL (3.5-5.0); ALBUMIN/GLOBULIN RATIO 1.1 (0.8-2.0); ALKALINE PHOSPHATASE 77 IU/L (40-150); ANION GAP 14.7 mmol/L (8-16); BLOOD UREA NITROGEN 21 mg/dL (7-26); BUN/CREATININE RATIO 19 (6-25); CARBON DIOXIDE 20 mmol/L (22-29); CHLORIDE 109 mmol/L (98-107); CREATININE, SERUM 1.13 mg/dL (0.72-1.25); EST GLOMERULAR FILTRATION RATE > 60 ML/MIN (60-); GLUCOSE 72 mg/dL (74-118); POTASSIUM 3.7 mmol/L (3.5-5.1); SODIUM 140 mmol/L (136-145)
--- NOTE | 2020-03-18 11:20 | NUR ---
Dr. Petersen here to see pt.
--- NOTE | 2020-03-18 11:30 | NUR ---
pt off unit for CT/ abd.,Pelvis.
--- NOTE | 2020-03-18 11:49 | NUR ---
pt returned to room.
[2020-03-18] MEDS: ASPIRIN 81 MG ENTERIC COATED PO SCH (12:07)
[2020-03-18] MEDS: LEVETIRACETAM 500 MG TAB PO SCH ×2 (12:07→17:53)
[2020-03-18] MEDS: GABAPENTIN 300 MG CAP PO SCH ×2 (12:08→21:20)
[2020-03-18] MEDS: AMLODIPINE BESYLATE 5 MG TAB PO SCH ×2 (12:08→17:53)
--- NOTE | 2020-03-18 12:46 | Diagnostic Imaging Report ---
EXAM: CT Abdomen and Pelvis WITHOUT contrast INDICATION: Right HIP PAIN. POST FALL. UNABLE TO WALK COMPARISON: None. TECHNIQUE: Abdomen and pelvis were scanned utilizing a multidetector helical scanner from the lung base to the pubic symphysis without administration of IV contrast. Absence of intravenous contrast decreases sensitivity for detection of focal lesions and vascular pathology. Coronal and sagittal reformations were obtained. Routine protocol was performed. IV CONTRAST: None ORAL CONTRAST: None COMPLICATIONS: None RADIATION DOSE: Total DLP: 594.96 mGy*cm Estimated effective dose: (DLP x 0.015 x size factor) mSv CTDIvol has been reviewed. It is below the limits set by the Radiation Protocol Committee (RPC). Dose modulation, iterative reconstruction, and/or weight based adjustment of the mA/kV was utilized to reduce the radiation dose to as low as reasonably achievable. FINDINGS: LINES and TUBES: None. LOWER THORAX: There is left atrial enlargement measuring up to 5 cm. The lung bases are clear. HEPATOBILIARY: No focal hepatic lesions. No biliary ductal dilation. GALLBLADDER: No radio-opaque stones or sludge. No wall thickening. SPLEEN: No splenomegaly. PANCREAS: No focal masses or ductal dilatation. ADRENALS: No adrenal nodules KIDNEYS/URETERS: No hydronephrosis. No cystic or solid mass lesions. No stones. GI TRACT: There is diverticulosis coli without evidence of active inflammation. No abnormal distention, wall thickening, or evidence of bowel obstruction. Appendix is normal. PELVIC ORGANS/BLADDER: Unremarkable. LYMPH NODES: No lymphadenopathy. VESSELS: Scattered mild arterial vascular calcifications. PERITONEUM / RETROPERITONEUM: No free air or fluid. BONES: The bones are diffusely demineralized. No displaced pelvic fracture identified. There are degenerative changes in the spine. There is osseous fusion of the bilateral sacroiliac joints. SOFT TISSUES: Unremarkable. IMPRESSION: 1. There are no displaced pelvic fractures identified. However, the bones are diffusely demineralized which can limit identification of radiographically occult hip fractures. If patient remains unable to ambulate, an MRI of the pelvis without contrast is a more sensitive examination which can be considered. 2. Diverticulosis coli without active inflammation. 3. Left atrial enlargement. Signed by: Collins Iyer MD on 03/18/2020 12:43 PM
--- NOTE | 2020-03-18 13:34 | History and Physical ---
PRIMARY CARE PHYSICIAN: Hussein Steinberg MD. CHIEF COMPLAINT: Right hip and lower extremity pain, difficulty walking after a fall approximately two months ago. HISTORY OF PRESENT ILLNESS: The patient is a 69-year-old male, paralyzed on the right side, but was still able to walk prior to his fall approximately two months ago. The patient has ischemic stroke in July 2018 per patient. Apparently, since then, the patient was able to do some physical therapy, but his right upper extremity contracted. However, his right lower extremity he was able to stand and using his left side, he was able to get around per patient. However, the patient stated that he fell approximately two months ago and since then he was unable to walk. He was having some right hip pain. He did not see any physician at that time and worsening condition, where he came to the hospital now. He complained of right lower extremity pain. Chest x-ray otherwise unremarkable other than some vague vascular congestion. He does not have increased shortness of breath. Venous Doppler lower extremity did not review any DVT. The patient has some pain in the left hip area. No x-ray imaging test done yet. PAST MEDICAL HISTORY: Ischemic CVA with right hemiparesis. Hypertension. Ischemic seizure. Reflux. Dyslipidemia. PAST SURGICAL HISTORY: Noncontributory. SOCIAL HISTORY: The patient does not smoke or use alcohol. No recreational drug. ALLERGIES: NO KNOWN ALLERGIES. HOME MEDICATIONS: The patient is on Norvasc, aspirin, Lipitor, gabapentin, Levitra and Protonix. PHYSICAL EXAMINATION: VITAL SIGNS: Temperature is 98, blood pressure 162/90, pulse rate 63, respirations 18. GENERAL: The patient is not in acute distress. He is awake. HEENT: Normocephalic, atraumatic. Anicteric. NECK: Supple grossly. PULMONARY: Clear. CARDIOVASCULAR: S1, S2. Regular rate and rhythm. ABDOMEN: Soft. EXTREMITIES: No cyanosis or grossly edema of the left lower extremity. Some swelling in the right lower extremity. NEUROLOGIC: Right hemiparesis. LABORATORY DATA: Sodium is 140, potassium 3.7, chloride 109, bicarb 20, BUN 21, creatinine 1.2, glucose 72. WBC is 5, hemoglobin 13, hematocrit 42, platelets 120. Liver enzyme unremarkable. IMPRESSION: 1. Right side hemiparesis worsening with ambulatory dysfunction after a fall approximately two months ago. We will need to consider any hip injury or pelvic bone injury. Since the patient did not follow up with anyone since then, it is difficult to assess. 2. Ischemic cerebrovascular accident approximately year and half ago, July 2018. 3. Dyslipidemia. 4. Hypertension. 5. 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 PLAN: CT of the pelvic and x-ray of the right hip. We will give the patient DVT prophylaxis in light of the patient negative for DVT of the right lower extremity. We will get urinalysis. PT/OT. Pain control. We will follow up on the patient's status. Control blood pressure. Resume home medication. MD HUNTER Maynard/JACQUELIN /[id number]
[2020-03-18] MEDS ORDERED: ONDANSETRON HCL 4 MG ORAL DISINTEGRATING TAB PO PRN (17:15)
[2020-03-18] MEDS: SENNOSIDES 8.6 MG TAB PO SCH (17:53)
[2020-03-18] MEDS: ENOXAPARIN SOD INJ 40 MG/0.4 ML SYR SC SCH (17:53)
--- NOTE | 2020-03-18 19:10 | NUR ---
WALKING ROUNDS PERFORMED, RECEIVED PT LAYING SEMI FOWLERS IN BED, AAOX3, RR EVEN AND NON-LABORED, ON ROOM AIR. NO S/SX OF DISTRESS NOTED. LEFT PT LAYING SEMI FOWLERS IN BED, BED IN LOW LOCKED POSITION, SIDE RAILS UPX2, CALL LIGHT AND PHONE WITHIN REACH.
--- NOTE | 2020-03-18 19:15 | NUR ---
Report given to oncoming nurse, pt stable at shift change.
[2020-03-18] MEDS: ATORVASTATIN 40 MG TAB PO SCH (21:20)
[2020-03-18] MEDS: PANTOPRAZOLE SOD 40 MG TABEC PO SCH (21:20)
[2020-03-19] VITALS (8 sets, daily range): BP systolic 133–153; BP diastolic 77–93
[2020-03-19] MEDS: SENNOSIDES 8.6 MG TAB PO SCH ×2 (09:18→17:45)
[2020-03-19] MEDS: ASPIRIN 81 MG ENTERIC COATED PO SCH (09:18)
[2020-03-19] MEDS: LEVETIRACETAM 500 MG TAB PO SCH ×2 (09:18→17:45)
[2020-03-19] MEDS: AMLODIPINE BESYLATE 5 MG TAB PO SCH ×2 (09:18→17:45)
[2020-03-19] MEDS: GABAPENTIN 300 MG CAP PO SCH ×3 (09:18→19:55)
[2020-03-19] MEDS: ENOXAPARIN SOD INJ 40 MG/0.4 ML SYR SC SCH (17:45)
--- NOTE | 2020-03-19 19:31 | NUR ---
report given to oncoming nurse . pt stable at this time .
[2020-03-19] MEDS: PANTOPRAZOLE SOD 40 MG TABEC PO SCH (19:55)
[2020-03-19] MEDS: ACETAMINOPHEN/CODEINE 300MG - 30MG TAB PO PRN (19:55)
[2020-03-19] MEDS: ATORVASTATIN 40 MG TAB PO SCH (19:55)
[2020-03-20] VITALS (8 sets, daily range): BP systolic 131–165; BP diastolic 79–99
--- NOTE | 2020-03-20 06:25 | NUR ---
SPOKE WITH MD CORRAL CONCERNING POSITIVE RESULTS FOR COVID. NEW ORDERS RECEIVED.
[2020-03-20] MEDS: SENNOSIDES 8.6 MG TAB PO SCH ×2 (09:15→17:21)
[2020-03-20] MEDS: GABAPENTIN 300 MG CAP PO SCH ×3 (09:15→20:31)
[2020-03-20] MEDS: AMLODIPINE BESYLATE 5 MG TAB PO SCH ×2 (09:15→17:21)
[2020-03-20] MEDS: LEVETIRACETAM 500 MG TAB PO SCH ×2 (09:15→17:21)
[2020-03-20] MEDS: ASPIRIN 81 MG ENTERIC COATED PO SCH (09:15)
[2020-03-20] MEDS: ACETAMINOPHEN/CODEINE 300MG - 30MG TAB PO PRN (09:41)
[2020-03-20] MEDS: ZINC SULFATE 220 MG CAP PO SCH ×2 (10:30→11:00)
[2020-03-20] MEDS: DEXAMETHASONE 4 MG TAB PO SCH ×2 (10:30→11:00)
[2020-03-20] MEDS ORDERED: AZITHROMYCIN 250 MG TAB PO SCH (10:30)
[2020-03-20] MEDS: CEFTRIAXONE SOD 1 GM/NS 50 ML 50 ML IV SCH ×2 (10:45→11:00)
[2020-03-20] MEDS ORDERED: SODIUM CHLORIDE 0.9% 250ML 250 ML ONE (10:52)
--- NOTE | 2020-03-20 13:45 | Diagnostic Imaging Report ---
TECHNIQUE: Magnetic resonance imaging of the PELVIS was performed WITHOUT injected contrast using standard departmental protocols. HISTORY: Cellulitis COMPARISON: None. FINDINGS: Bone and bone marrow: No focal or infiltrative bone marrow replacing abnormality. No fracture or osteonecrosis. Soft tissues: Subcutaneous edema along the region of the right hip. No abscess. IMPRESSION: Edema/cellulitis of the right hip. No abscess or osteomyelitis Signed by: Dr. Carmelo Padron M.D. on 03/20/2020 1:42 PM
--- NOTE | 2020-03-20 15:24 | NUR ---
WOUND CARE CONSULT FOR 69YO MALE HX OF CELLULITIS RLE RAFAEL 17 MODERATE PUP STATUS AND INTERVENTIONS AND ALTERNATING PRESSURE MATTRESS LABS: WBC-5.10 HGB- 13 GLUCOSE-72 SKIN ASSESSMENT COMPLETE PATIENT PRESENTS WITH RIGHT MEDIAL ANKLE PARTIAL THICKNESS WOUND 2CM X2CM XO.1CM LEFT POSTERIOR LEG PARTIAL THICKNESS NEWLY CLOSED SURFACE 3CM X4CM RECOMMENDATIONS: NURSING TO CONTINUE TO MAINTAIN MODERATE PUP STATUS AND INTERVENTIONS AND VISCO MATTRESS NURSING TO CONTINUE TO ASSIST PATIENT OUT OF BED FOR MEALS AND MUCH TOLERATED NURSING TO CONTINUE TO ASSIST PATIENT NEEDED WITH MEALS AND NUTRITIONAL SUPPLEMENTS TO ENSURE PROPER REQUIREMENTS FOR HEALING NURSING TO CONTINUE TO OFFLOAD FEET AND HEELS NEEDED WITH PILLOW SUSPENSION WHEN IN BED NURSING TO CLEAN RIGHT MEDIAL ANKLE PARTIAL THICKNESS WOUND , LEFT POSTERIOR LEG PARTIAL THICKNESS NEWLY CLOSED SURFACE WITH NORMAL SALINE DAILY AND APPLY VENELEX OINTMENT AND ALLEVYN FOAM DRESSING Addendum: 03/20/20 at 1531 by Arnol Bass RN Amended: Links added.
--- NOTE | 2020-03-20 16:13 | Consultation ---
DATE OF CONSULTATION: HISTORY OF PRESENT ILLNESS: Mr. Villegas is a 69-year-old male comes in with right hip pain, difficulty walking after a fall 2 months ago. The patient denies any fever or chills. The patient was paralyzed on the right side, but he is able to walk with assistance. Apparently fell 2 months ago. The patient had a stroke in July 2018. He is coming with right-sided pain of the hip and some fever, but when I saw the patient, he is currently alert and oriented. He denies any complaints. He denies any pain at present time. PAST MEDICAL HISTORY: CVA and hypertension. PAST SURGICAL HISTORY: Denies. ALLERGIES: NKA. SOCIAL HISTORY: There is no smoking, drug abuse, or alcohol abuse. FAMILY HISTORY: Otherwise unremarkable. LABORATORY DATA: Blood cultures are negative. White count 5.1 and hemoglobin 13. His COVID-19 was positive. The patient denies any shortness of breath as mentioned above. PHYSICAL EXAMINATION: GENERAL: He is currently alert and oriented. Does not seem to be in acute distress. VITAL SIGNS: Stable, afebrile. HEENT: Not icteric. NECK: Supple. CHEST: Clear. HEART: S1 and S2. ABDOMEN: Soft. IMPRESSION: COVID-19, not hypoxemic. There is really no need for antibiotic. Discontinue antibiotic. There is no need for Decadron. Discontinue Decadron. Discontinue azithromycin. From Infectious Disease point of view, I would suggest to use thigh-high elastic stocking with ambulation. Discontinue Lovenox. Isolation for 10 days. The patient will be discharged home from Infectious Disease point of view. Hip pain, etiology unclear, seem to be resolved. History of stroke. We will follow. MD MARANDA Leija/JACQUELIN /[id number]
[2020-03-20] MEDS: ASCORBIC ACID 500 MG TAB PO SCH (17:21)
[2020-03-20] MEDS: PANTOPRAZOLE SOD 40 MG TABEC PO SCH (20:31)
[2020-03-20] MEDS: ATORVASTATIN 40 MG TAB PO SCH (20:31)
[2020-03-20] MEDS: ALBUTEROL SULFATE HFA 8GM INHALATION AEROSOL INH SCH (21:40)
[2020-03-21] VITALS (7 sets, daily range): BP systolic 121–154; BP diastolic 76–92
[2020-03-21] MEDS: ALBUTEROL SULFATE HFA 8GM INHALATION AEROSOL INH SCH ×2 (07:01→18:15)
[2020-03-21] MEDS: ASPIRIN 81 MG ENTERIC COATED PO SCH (09:00)
[2020-03-21] MEDS: AZITHROMYCIN 250 MG TAB PO SCH ×2 (09:00→09:30)
[2020-03-21] MEDS: SENNOSIDES 8.6 MG TAB PO SCH ×2 (09:00→17:00)
[2020-03-21] MEDS: GABAPENTIN 300 MG CAP PO SCH ×3 (09:00→20:50)
[2020-03-21] MEDS: ZINC SULFATE 220 MG CAP PO SCH (09:00)
[2020-03-21] MEDS: COLLAGENASE 5 GM TUBE TP SCH ×2 (09:00→09:30)
[2020-03-21] MEDS: ASCORBIC ACID 500 MG TAB PO SCH ×3 (09:00→17:30)
[2020-03-21] MEDS: LEVETIRACETAM 500 MG TAB PO SCH ×3 (09:00→17:30)
[2020-03-21] MEDS: AMLODIPINE BESYLATE 5 MG TAB PO SCH ×3 (09:00→17:30)
[2020-03-21] MEDS: CEFTRIAXONE SOD 1 GM/NS 50 ML 50 ML IV SCH ×2 (09:15→09:30)
[2020-03-21] MEDS ORDERED: HYDROCODONE/APAP 10MG-325MG TAB PO PRN (09:30)
[2020-03-21] MEDS: DEXAMETHASONE 4 MG TAB PO SCH (09:30)
[2020-03-21] MEDS: ENOXAPARIN SOD INJ 40 MG/0.4 ML SYR SC SCH ×2 (17:00→17:30)
--- NOTE | 2020-03-21 20:45 | NUR ---
PATIENT RESTING IN BED IN STABLE CONDITION, NO SIGNS OF DISTRESS NOTED. RIGHT SIDED CONTRACTION NOTED AND PATIENT VOICED UNDERSTANDING TO USE CALL LIGHT FOR ASSISTANCE. PATIENT VOICES NO PAIN AT THIS TIME. BED IS IN LOWEST POSITION, BOTH SIDE RAILS ARE UP, BED ALARM IS ON, CALL LIGHT IS WITHIN EASY REACH, WILL CONTINUE TO MONITOR.
[2020-03-21] MEDS: PANTOPRAZOLE SOD 40 MG TABEC PO SCH (20:50)
[2020-03-21] MEDS: ATORVASTATIN 40 MG TAB PO SCH (20:50)
[2020-03-22 01:03] VITALS: BP 148/87
[2020-03-22 04:45] VITALS: BP 149/89
[2020-03-22] MEDS: ALBUTEROL SULFATE HFA 8GM INHALATION AEROSOL INH SCH (06:36)
--- NOTE | 2020-03-22 06:55 | NUR ---
BEDSIDE SBAR REPORT RECEIVED FROM TREMAINE COX, PM SHIFT. PT FOUND RESTING IN BED IN NO ACUTE DISTRESS. PT REQUESTED DISPOSABLE UNDERPADS CHANGED AND TO EMPTY URINAL. PATIENT CARE PERFORMED. PT TOLERATED WELL. PT IS ABLE TO MAKE NEEDS KNOWN AND DENIES ANY FURTHER NEEDS AT THIS TIME. PT WAS EDUCATED ON FALL RISK PRECAUTIONS AND VERBALIZED UNDERSTANDING. CALL LIGHT AND BELONGINGS NEARBY. WILL CONTINUE TO MONITOR.
[2020-03-22 08:00] VITALS: BP 156/89
[2020-03-22 09:00] VITALS: BP 156/89
[2020-03-22] MEDS: AZITHROMYCIN 250 MG TAB PO SCH (09:11)
[2020-03-22] MEDS: AMLODIPINE BESYLATE 5 MG TAB PO SCH (09:11)
[2020-03-22] MEDS: ZINC SULFATE 220 MG CAP PO SCH (09:11)
[2020-03-22] MEDS: GABAPENTIN 300 MG CAP PO SCH ×2 (09:11→15:00)
[2020-03-22] MEDS: CEFTRIAXONE SOD 1 GM/NS 50 ML 50 ML IV SCH (09:11)
[2020-03-22] MEDS: ASPIRIN 81 MG ENTERIC COATED PO SCH (09:11)
[2020-03-22] MEDS: LEVETIRACETAM 500 MG TAB PO SCH (09:11)
[2020-03-22] MEDS: ASCORBIC ACID 500 MG TAB PO SCH (09:11)
[2020-03-22] MEDS: SENNOSIDES 8.6 MG TAB PO SCH (09:11)
[2020-03-22 12:00] VITALS: BP 140/87
[2020-03-22] MEDS: COLLAGENASE 5 GM TUBE TP SCH (12:23)
--- NOTE | 2020-03-22 12:40 | NUR ---
ORDER RECEIVED FOR HOME SN/PT/OT. CALL TO THE PT TO PROVIDE CHOICE. PT STATES HE HAS A 24HR CAREGIVER THAT LIVES W HIM. EXPLAINED THE PURPOSE OF HOME HEALTH. PT STATES HE WOULD LIKE TO HAVE SOMEONE COME OUT TO CHECK ON HIM. CHOICE WAS PROVIDED: [facility] AND [facility] [place]. PT CHOSE [facility]. REFERRAL WAS FAXED TO [facility]: [phone] / FAX: [phone].
--- NOTE | 2020-03-22 16:10 | NUR ---
PATIENT DISCHARGED HOME WITH HOME HEALTH VIA PRIVATE VEHICLE. PERIPHERAL IV WAS DISCONTINUED, CATHETER TIP INTACT WITHOUT RESISTANCE. DRY DRESSING APPLIED. PT TOLERATED WELL. PT RECEIVED DISCHARGE SUMMARY, MED LIST, AND EDUCATION. PT VERBALIZED UNDERSTANDING.
--- NOTE | 2020-03-22 17:04 | Progress Note ---
DATE: SUBJECTIVE: Mr. Villegas is doing well. There are no new complaints. REVIEW OF SYSTEMS: HEENT: Negative. PULMONARY: Negative. CARDIAC: Negative. PHYSICAL EXAMINATION: GENERAL: Alert and oriented. VITAL SIGNS: Stable, currently afebrile. HEENT: He is not icteric. NECK: Supple. CHEST: Clear. HEART: S1, S2. ABDOMEN: Soft. Bowel sounds present. EXTREMITIES: No edema. SKIN: No rash. IMPRESSION: Infectious Disease point of view, the patient is doing well. Can discontinue antibiotic. He is not hypoxemic. Discharge home with no treatment. Albuterol for cough. Isolation for 10 days. We will follow. MD MARANDA Leija/JACQUELIN /[id number]
--- NOTE | 2020-03-23 18:15 | Progress Note ---
DATE: SUBJECTIVE: Mr. Villegas is doing well. There are no new complaints. REVIEW OF SYSTEMS: HEENT: Negative. PULMONARY: Negative. CARDIAC: Negative. PHYSICAL EXAMINATION: GENERAL: He is currently alert and oriented. VITAL SIGNS: Stable, afebrile. HEENT: He is not icteric. NECK: Supple. CHEST: Clear. HEART: S1 and S2. ABDOMEN: Soft. Bowel sounds present. EXTREMITIES: No edema. SKIN: No rash. IMPRESSION: Positive COVID-19 by PCR, clinically stable, off antibiotic. Leg pain seems to be better. Discontinue Decadron. We will discuss with Internal Medicine. We will follow. MD MARANDA Leija/JACQUELIN /[id number]
== END 2020-03-22 16:12 | disposition home or self-care (01) | DRG 602 ==
LOC: ER 18:30 → ERHOLD 21:03 → MED/SURG3 22:07
PROVIDERS: ADMIT Internal Medicine; ATTEND Internal Medicine
DX: L03.115 Cellulitis of right lower limb (principal); U07.1 COVID-19; I69.351 Hemiplegia and hemiparesis following cerebral infarction affecting right dominant side; I10 Essential (primary) hypertension; G40.909 Epilepsy, unspecified, not intractable, without status epilepticus; Z82.49 Family history of ischemic heart disease and other diseases of the circulatory system; K21.9 Gastro-esophageal reflux disease without esophagitis; E78.5 Hyperlipidemia, unspecified
CPT/HCPCS: 36415; 71045; 72195; 74176; 80053; 82948; 83605; 85025; 85610; 85730; 87040; 93971; 94664; 99284; J0696; J1650; J2543; J3370; J7030; J7050; U0002

== ENCOUNTER 2020-04-18 17:40 | Emergency (ER) | payer MEDICARE ==
[~2020-04-18] VITALS: Ht 170.2 cm; Wt 78.9 kg
[~2020-04-18 17:40] MED LIST changes: +AMLODIPINE BESYL5 MG PO; +ATORVASTATIN CA40 MG PO; +GABAPENTIN300 MG PO; +LEVETIRACETAM1000 MG PO; +LO-DOSE ASPIRIN81 MG PO; +PANTOPRAZOLE SO40 MG PO; -REGADENOSON 0.4 MG/5 ML SYR IV ONE; +TIZANIDINE HCL2 MG PO
[2020-04-18 19:00] LABS: BASOPHILS % 0.4 % (0.0-1.0); EOSINOPHILS # (AUTO) 0.4 (0.0-0.4); HEMATOCRIT 45.3 % (38.2-49.6); HEMOGLOBIN 13.5 g/dL (14.0-18.0); LYMPHOCYTES # (AUTO) 1.5 (1.0-3.2); LYMPHOCYTES % 29.3 % (18.0-39.1); MEAN CORPUSCULAR HEMOGLOBIN 22.7 pg (28-32); MEAN CORPUSCULAR HGB CONC 29.8 g/dL (31-35); MEAN CORPUSCULAR VOLUME 76.3 fL (81-99); MONOCYTES # (AUTO) 0.4 (0.2-0.8); MONOCYTES % 6.8 % (4.4-11.3); NEUTROPHILS # (AUTO) 2.9 (2.1-6.9); NEUTROPHILS % 55.1 % (38.7-80.0); PLATELET COUNT 133 x10e3/uL (140-360); RED BLOOD COUNT 5.94 x10e6/uL (4.3-5.7); RED CELL DISTRIBUTION WIDTH 18.2 % (11.7-14.4)
[2020-04-18] MEDS ORDERED: TRAMADOL HCL 50 MG TAB PO ONE (19:45)
[2020-04-18 21:13] LABS: ALANINE AMINOTRANSFERASE 32 IU/L (0-55); ALBUMIN 4.2 g/dL (3.5-5.0); ALBUMIN/GLOBULIN RATIO 1.4 (0.8-2.0); ALKALINE PHOSPHATASE 88 IU/L (40-150); ANION GAP 13.2 mmol/L (8-16); BLOOD UREA NITROGEN 14 mg/dL (7-26); BUN/CREATININE RATIO 13 (6-25); CALCIUM 9.4 mg/dL (8.4-10.2); CARBON DIOXIDE 26 mmol/L (22-29); CHLORIDE 108 mmol/L (98-107); CREATININE, SERUM 1.08 mg/dL (0.72-1.25); EST GLOMERULAR FILTRATION RATE > 60 ML/MIN (60-); GLUCOSE 86 mg/dL (74-118); POTASSIUM 4.2 mmol/L (3.5-5.1); SODIUM 143 mmol/L (136-145)
[2020-04-18] MEDS ORDERED: AMLODIPINE BESYLATE 5 MG TAB PO ONE (21:15)
[2020-04-18] MEDS ORDERED: ONDANSETRON HCL INJ 2MG/ML 2ML 2 MG/ML VIAL IV STA (21:33)
[2020-04-18] MEDS ORDERED: MORPHINE SULFATE 2 MG/ML SYR 1ML IV STA (21:33)
== END 2020-04-18 22:20 | disposition home or self-care (01) ==
LOC: ER 18:05
DX: R60.9 Edema, unspecified (principal); I89.0 Lymphedema, not elsewhere classified; M79.662 Pain in left lower leg; M79.661 Pain in right lower leg; G89.29 Other chronic pain; I10 Essential (primary) hypertension; E03.9 Hypothyroidism, unspecified; G40.909 Epilepsy, unspecified, not intractable, without status epilepticus; Z91.81 History of falling; Z86.73 Personal history of transient ischemic attack (TIA), and cerebral infarction without residual deficits
CPT/HCPCS: 36415; 71045; 80053; 83880; 85025; 99284; J2270; J2405

== ENCOUNTER 2020-08-17 12:42 | Emergency (ER) | payer MEDICARE ==
[~2020-08-17] VITALS: Ht 170.2 cm; Wt 78.9 kg
[2020-08-17 14:26] LABS: BASOPHILS % 0.4 % (0.0-1.0); HEMATOCRIT 41.4 % (38.2-49.6); LYMPHOCYTES # (AUTO) 1.4 (1.0-3.2); LYMPHOCYTES % 19.2 % (18.0-39.1); MEAN CORPUSCULAR HEMOGLOBIN 23.6 pg (28-32); MEAN CORPUSCULAR HGB CONC 31.4 g/dL (31-35); MONOCYTES # (AUTO) 0.8 (0.2-0.8); MONOCYTES % 10.3 % (4.4-11.3); NEUTROPHILS # (AUTO) 4.2 (2.1-6.9); NEUTROPHILS % 56.8 % (38.7-80.0); PLATELET COUNT 169 x10e3/uL (140-360); RED BLOOD COUNT 5.52 x10e6/uL (4.3-5.7); RED CELL DISTRIBUTION WIDTH 14.7 % (11.7-14.4)
[2020-08-17 14:42] LABS: ALANINE AMINOTRANSFERASE 38 IU/L (0-55); ALBUMIN 3.6 g/dL (3.5-5.0); ALKALINE PHOSPHATASE 104 IU/L (40-150); BLOOD UREA NITROGEN 18 mg/dL (7-26); BUN/CREATININE RATIO 17 (6-25); CALCIUM 8.9 mg/dL (8.4-10.2); CARBON DIOXIDE 25 mmol/L (22-29); CHLORIDE 108 mmol/L (98-107); CREATININE, SERUM 1.04 mg/dL (0.72-1.25); EST GLOMERULAR FILTRATION RATE > 60 ML/MIN (60-); GLUCOSE 97 mg/dL (74-118); SODIUM 141 mmol/L (136-145)
[2020-08-17] MEDS ORDERED: SODIUM CHLORIDE 0.9% 50ML 50 ML ONE (15:07)
[2020-08-17] MEDS ORDERED: IOPAMIDOL 370 MG/ML 200 ML INFUS..BTL INJ ONE (15:07)
[2020-08-17] MEDS ORDERED: CLINDAMYCIN HC150 MG PO ×2 (16:53→17:01)
[2020-08-17] MEDS ORDERED: ULTRAM 50MG50 MG PO (17:01)
== END 2020-08-17 18:06 | disposition home or self-care (01) ==
LOC: ER 13:21
DX: L03.115 Cellulitis of right lower limb (principal); I69.351 Hemiplegia and hemiparesis following cerebral infarction affecting right dominant side
CPT/HCPCS: 36415; 73701; 80053; 85025; 99283; Q9967

== ENCOUNTER → 2020-10-18 | Outpatient (RCR) | payer MEDICARE ==
[~2020-10-18] MED LIST changes: +CLINDAMYCIN HC150 MG PO; +LIDOCAINE VISC 2% SOLN 15 ML UDC ONE; +MUPIROCIN 2% OINT 22 GM TUBE ONE; +ULTRAM 50MG50 MG PO
== END ==
LOC: WCC 10-04 15:38
PROVIDERS: ATTEND Family Medicine
DX: L89.103 Pressure ulcer of unspecified part of back, stage 3 (principal); L89.42 Pressure ulcer of contiguous site of back, buttock and hip, stage 2; J44.9 Chronic obstructive pulmonary disease, unspecified; I10 Essential (primary) hypertension; E78.5 Hyperlipidemia, unspecified; I69.951 Hemiplegia and hemiparesis following unspecified cerebrovascular disease affecting right dominant side; Z74.01 Bed confinement status
CPT/HCPCS: 87071; 87075; 87186; 87205

== ENCOUNTER 2020-11-08 12:25 | Outpatient (RCR) | payer MEDICARE ==
[2020-11-08] MEDS ORDERED: MUPIROCIN 2% OINT 22 GM TUBE ONE (13:15)
[2020-11-08] MEDS ORDERED: LIDOCAINE VISC 2% SOLN 15 ML UDC ONE (13:15)
== END 2020-11-17 ==
LOC: WCC 12:25
PROVIDERS: ATTEND Family Medicine
DX: L89.103 Pressure ulcer of unspecified part of back, stage 3 (principal); L08.89 Other specified local infections of the skin and subcutaneous tissue; L08.9 Local infection of the skin and subcutaneous tissue, unspecified; S71.101A Unspecified open wound, right thigh, initial encounter; S70.221A Blister (nonthermal), right hip, initial encounter; S70.321A Blister (nonthermal), right thigh, initial encounter; S80.221A Blister (nonthermal), right knee, initial encounter; I10 Essential (primary) hypertension; E78.5 Hyperlipidemia, unspecified; I69.951 Hemiplegia and hemiparesis following unspecified cerebrovascular disease affecting right dominant side; J44.9 Chronic obstructive pulmonary disease, unspecified; Z74.01 Bed confinement status
CPT/HCPCS: 87071; 87075; 87205; 88305

== ENCOUNTER 2020-11-27 13:24 | Outpatient (RCR) | payer MEDICARE ==
[~2020-11-27 13:24] MED LIST changes: -MUPIROCIN 2% OINT 22 GM TUBE ONE
[2020-11-27] MEDS ORDERED: LIDOCAINE VISC 2% SOLN 15 ML UDC ONE (13:36)
== END 2020-12-18 ==
LOC: WCC 13:24
PROVIDERS: ATTEND Family Medicine
DX: L08.89 Other specified local infections of the skin and subcutaneous tissue (principal); L08.9 Local infection of the skin and subcutaneous tissue, unspecified; S71.101A Unspecified open wound, right thigh, initial encounter; S81.001A Unspecified open wound, right knee, initial encounter; S91.001A Unspecified open wound, right ankle, initial encounter; S70.321A Blister (nonthermal), right thigh, initial encounter; S80.221A Blister (nonthermal), right knee, initial encounter; I10 Essential (primary) hypertension; E78.5 Hyperlipidemia, unspecified; J44.9 Chronic obstructive pulmonary disease, unspecified; I69.951 Hemiplegia and hemiparesis following unspecified cerebrovascular disease affecting right dominant side; Z74.01 Bed confinement status

== ENCOUNTER 2021-09-17 13:58 | Emergency (ER) | payer MEDICARE ==
[~2021-09-17] VITALS: Ht 170.2 cm; Wt 78.9 kg
[~2021-09-17 13:58] MED LIST changes: -LIDOCAINE VISC 2% SOLN 15 ML UDC ONE
[2021-09-17] MEDS ORDERED: NYSTATIN1 EAC2 TOP (18:39)
[2021-09-17 19:00] VITALS: BP 143/88
== END 2021-09-17 21:21 | disposition home or self-care (01) ==
LOC: ER 15:12
DX: N50.89 Other specified disorders of the male genital organs (principal); N50.9 Disorder of male genital organs, unspecified; L98.9 Disorder of the skin and subcutaneous tissue, unspecified; I10 Essential (primary) hypertension; E03.9 Hypothyroidism, unspecified; G40.909 Epilepsy, unspecified, not intractable, without status epilepticus; Z95.1 Presence of aortocoronary bypass graft; Z86.73 Personal history of transient ischemic attack (TIA), and cerebral infarction without residual deficits
CPT/HCPCS: 76870; 93976; 99283

== ENCOUNTER 2021-10-17 19:09 | Emergency (ER) | payer MEDICARE ==
[~2021-10-17] VITALS: Ht 170.2 cm; Wt 86.2 kg
[~2021-10-17 19:09] MED LIST changes: +NYSTATIN1 EAC2 TOP
[2021-10-17 20:06] LABS: BASOPHILS % 0.4 % (0.0-1.0); EOSINOPHILS # (AUTO) 1.6 (0.0-0.4); EOSINOPHILS % 22.3 % (0.0-6.0); HEMATOCRIT 45.5 % (38.2-49.6); LYMPHOCYTES # (AUTO) 2.1 (1.0-3.2); LYMPHOCYTES % 28.8 % (18.0-39.1); MEAN CORPUSCULAR HEMOGLOBIN 23.4 pg (28-32); MEAN CORPUSCULAR HGB CONC 30.8 g/dL (31-35); MEAN CORPUSCULAR VOLUME 76.1 fL (81-99); MONOCYTES # (AUTO) 0.6 (0.2-0.8); MONOCYTES % 8.1 % (4.4-11.3); NEUTROPHILS # (AUTO) 2.9 (2.1-6.9); NEUTROPHILS % 40.3 % (38.7-80.0); PLATELET COUNT 136 x10e3/uL (140-360); RED BLOOD COUNT 5.98 x10e6/uL (4.3-5.7); RED CELL DISTRIBUTION WIDTH 17.1 % (11.7-14.4)
[2021-10-17 20:27] LABS: ALBUMIN 3.6 g/dL (3.5-5.0); ALBUMIN/GLOBULIN RATIO 0.9 (0.8-2.0); ANION GAP 11.2 mmol/L (8-16); CALCIUM 9.7 mg/dL (8.4-10.2); CREATININE, SERUM 0.85 mg/dL (0.72-1.25); POTASSIUM 4.2 mmol/L (3.5-5.1)
[2021-10-17 20:34] LABS: CREATINE KINASE MB 0.5 ng/mL (0-5.0)
[2021-10-17 20:39] LABS: EOSINOPHILS % (MANUAL) 18 % (0-7); LYMPHOCYTES % (MANUAL) 24 % (19-48); MONOCYTES % (MANUAL) 13 % (3.4-9.0); NEUTROPHILS % (MANUAL) 40 % (40-74)
[2021-10-17 20:40] LABS: PLATELET ESTIMATE ADEQUATE; PLATELET MORPHOLOGY COMMENT NORMAL; RBC MORPHOLOGY COMMENT NORMAL
[2021-10-17 21:18] VITALS: BP 124/75
== END 2021-10-17 21:18 | disposition home or self-care (01) ==
LOC: ER 19:18
DX: R53.1 Weakness (principal); E03.9 Hypothyroidism, unspecified; I10 Essential (primary) hypertension; G40.909 Epilepsy, unspecified, not intractable, without status epilepticus; Z79.82 Long term (current) use of aspirin; Z79.899 Other long term (current) drug therapy; Z86.73 Personal history of transient ischemic attack (TIA), and cerebral infarction without residual deficits; Z95.1 Presence of aortocoronary bypass graft
CPT/HCPCS: 36415; 80053; 82550; 82553; 83880; 84484; 85025; 93005; 99284

== ENCOUNTER 2021-11-06 21:55 | Inpatient (IN) | payer MEDICARE ==
[~2021-11-06] VITALS: Ht 170.2 cm; Wt 86.2 kg
[2021-11-06] MEDS ORDERED: ASPIRIN 81 MG CHEW TAB PO ONE (22:15)
[2021-11-06 22:39] LABS: BASOPHILS % 0.2 % (0.0-1.0); EOSINOPHILS # (AUTO) 0.7 (0.0-0.4); HEMOGLOBIN 13.9 g/dL (14.0-18.0); LYMPHOCYTES # (AUTO) 1.7 (1.0-3.2); LYMPHOCYTES % 11.7 % (18.0-39.1); MEAN CORPUSCULAR HEMOGLOBIN 23.9 pg (28-32); MEAN CORPUSCULAR HGB CONC 31.6 g/dL (31-35); MEAN CORPUSCULAR VOLUME 75.6 fL (81-99); MONOCYTES % 7.1 % (4.4-11.3); NEUTROPHILS % 75.8 % (38.7-80.0); PLATELET COUNT 173 x10e3/uL (140-360); RED BLOOD COUNT 5.82 x10e6/uL (4.3-5.7); RED CELL DISTRIBUTION WIDTH 15.9 % (11.7-14.4)
[2021-11-06 22:43] LABS: CLARITY,URINE CLOUDY (CLEAR); COLOR,URINE AMBER (YELLOW); KETONES,URINE TRACE (NEGATIVE); LEUKOCYTE ESTERASE ,URINE LARGE (NEGATIVE); NITRITE,URINE NEGATIVE (NEGATIVE); PROTEIN,URINE DIPSTICK 2+ (NEGATIVE)
[2021-11-06 22:50] LABS: BACTERIA,URINE MODERATE /HPF; EPITHELIAL CELLS,URINE FEW /LPF; WBC,URINE (MAN) >50 /HPF (0-5)
[2021-11-06] MEDS ORDERED: ACETAMINOPHEN 1000 MG/100 ML IV STA (22:54)
[2021-11-06 22:56] LABS: ALBUMIN 3.6 g/dL (3.5-5.0); ALBUMIN/GLOBULIN RATIO 0.7 (0.8-2.0); ANION GAP 14.1 mmol/L (8-16); CALCIUM 9.5 mg/dL (8.4-10.2); CREATININE, SERUM 1.17 mg/dL (0.72-1.25); POTASSIUM 4.1 mmol/L (3.5-5.1)
[2021-11-06] MEDS ORDERED: ACETAMINOPHEN 325 MG SUPP PR ONE (23:00)
[2021-11-06 23:01] LABS: B-TYPE NATRIURETIC PEPTIDE2 12.7 pg/mL (0-100)
[2021-11-06 23:03] LABS: CREATINE KINASE MB 0.5 ng/mL (0-5.0)
[2021-11-06] MEDS ORDERED: SODIUM CHLORIDE 0.9% 1000ML 1,000 ML IV SCH (23:30)
[2021-11-07 06:01] LABS: BASOPHILS % 0.1 % (0.0-1.0); EOSINOPHILS % 0.1 % (0.0-6.0); HEMATOCRIT 42.5 % (38.2-49.6); HEMOGLOBIN 13.5 g/dL (14.0-18.0); LYMPHOCYTES # (AUTO) 0.7 (1.0-3.2); LYMPHOCYTES % 6.5 % (18.0-39.1); MEAN CORPUSCULAR HEMOGLOBIN 23.9 pg (28-32); MEAN CORPUSCULAR HGB CONC 31.8 g/dL (31-35); MEAN CORPUSCULAR VOLUME 75.4 fL (81-99); MONOCYTES # (AUTO) 0.1 (0.2-0.8); MONOCYTES % 0.8 % (4.4-11.3); NEUTROPHILS # (AUTO) 10.5 (2.1-6.9); NEUTROPHILS % 92.2 % (38.7-80.0); PLATELET COUNT 178 x10e3/uL (140-360); RED BLOOD COUNT 5.64 x10e6/uL (4.3-5.7); RED CELL DISTRIBUTION WIDTH 15.4 % (11.7-14.4)
[2021-11-07 07:06] LABS: ALBUMIN 3.2 g/dL (3.5-5.0); ALBUMIN/GLOBULIN RATIO 0.7 (0.8-2.0); ANION GAP 14.1 mmol/L (8-16); CALCIUM 9.1 mg/dL (8.4-10.2); CREATININE, SERUM 0.94 mg/dL (0.72-1.25); POTASSIUM 4.1 mmol/L (3.5-5.1)
[2021-11-07] MEDS ORDERED: TRAMADOL HCL 50 MG TAB PO PRN (08:15)
[2021-11-07] MEDS: GABAPENTIN 300 MG CAP PO SCH ×3 (09:00→21:12)
[2021-11-07] MEDS: ASPIRIN 81 MG ENTERIC COATED PO SCH (09:00)
[2021-11-07] MEDS: AMLODIPINE BESYLATE 5 MG TAB PO SCH ×2 (09:00→18:00)
[2021-11-07] MEDS: LEVETIRACETAM 500 MG TAB PO SCH ×2 (09:00→18:00)
[2021-11-07] MEDS ORDERED: DEXTROSE 50% SYRINGE 50 ML IV PRN (09:15)
[2021-11-07 09:52] LABS: CREATINE KINASE 129 IU/L (30-200)
[2021-11-07] MEDS ORDERED: IOPAMIDOL 370 MG/ML 100 ML INFUS..BTL INJ ONE (10:21)
[2021-11-07 11:00] VITALS: BP 146/88
[2021-11-07] MEDS: INSULIN LISPRO 100 UNIT/1 ML 3ML VIAL SQ SCH ×3 (11:30→21:30)
[2021-11-07] MEDS: SODIUM CHLORIDE 0.9% 1000ML 1,000 ML IV SCH (13:32)
[2021-11-07 15:29] VITALS: BP 147/91
[2021-11-07 16:54] LABS: CREATINE KINASE 190 IU/L (30-200)
[2021-11-07 20:00] VITALS: BP 135/83
[2021-11-07] MEDS: ATORVASTATIN 40 MG TAB PO SCH (21:12)
[2021-11-07] MEDS: PANTOPRAZOLE SOD 40 MG TABEC PO SCH (21:12)
[2021-11-07] MEDS: ENOXAPARIN SOD INJ 60 MG/0.6 ML SYR SC SCH (21:12)
[2021-11-07 22:19] VITALS: BP 135/83
[2021-11-08] VITALS: BP 141/88
[2021-11-08 04:00] VITALS: BP 132/85
[2021-11-08 04:58] LABS: BASOPHILS % 0.1 % (0.0-1.0); EOSINOPHILS % 0.1 % (0.0-6.0); HEMATOCRIT 41.3 % (38.2-49.6); HEMOGLOBIN 12.8 g/dL (14.0-18.0); LYMPHOCYTES # (AUTO) 1.2 (1.0-3.2); LYMPHOCYTES % 9.1 % (18.0-39.1); MEAN CORPUSCULAR HEMOGLOBIN 23.3 pg (28-32); MEAN CORPUSCULAR VOLUME 75.2 fL (81-99); MONOCYTES # (AUTO) 1.2 (0.2-0.8); NEUTROPHILS % 81.3 % (38.7-80.0); PLATELET COUNT 194 x10e3/uL (140-360); RED BLOOD COUNT 5.49 x10e6/uL (4.3-5.7); RED CELL DISTRIBUTION WIDTH 15.3 % (11.7-14.4)
[2021-11-08 05:21] LABS: ANION GAP 11.8 mmol/L (8-16); CALCIUM 9.3 mg/dL (8.4-10.2); CREATININE, SERUM 0.81 mg/dL (0.72-1.25); POTASSIUM 3.8 mmol/L (3.5-5.1)
[2021-11-08] MEDS: SODIUM CHLORIDE 0.9% 1000ML 1,000 ML IV SCH (05:32)
[2021-11-08] MEDS: INSULIN LISPRO 100 UNIT/1 ML 3ML VIAL SQ SCH ×4 (07:30→21:00)
[2021-11-08 07:53] VITALS: BP 137/87
[2021-11-08] MEDS: LEVETIRACETAM 500 MG TAB PO SCH ×2 (08:43→17:35)
[2021-11-08] MEDS: ASPIRIN 81 MG ENTERIC COATED PO SCH (08:43)
[2021-11-08] MEDS: GABAPENTIN 300 MG CAP PO SCH ×3 (08:44→21:00)
[2021-11-08] MEDS: AMLODIPINE BESYLATE 5 MG TAB PO SCH ×2 (08:45→17:35)
[2021-11-08] MEDS: ENOXAPARIN SOD INJ 60 MG/0.6 ML SYR SC SCH ×2 (09:12→21:23)
[2021-11-08] MEDS: BACITRACIN ZINC 15 GM OINT TOP SCH (09:12)
[2021-11-08 11:12] VITALS: BP 119/79
[2021-11-08 15:04] VITALS: BP 129/83
[2021-11-08 20:00] VITALS: BP 125/79
[2021-11-08] MEDS: PANTOPRAZOLE SOD 40 MG TABEC PO SCH (21:23)
[2021-11-08] MEDS: ATORVASTATIN 40 MG TAB PO SCH (21:23)
[2021-11-09] VITALS (8 sets, daily range): BP systolic 138–157; BP diastolic 84–94
[2021-11-09 05:49] LABS: BASOPHILS % 0.3 % (0.0-1.0); EOSINOPHILS # (AUTO) 0.4 (0.0-0.4); EOSINOPHILS % 3.9 % (0.0-6.0); HEMATOCRIT 38.9 % (38.2-49.6); HEMOGLOBIN 12.1 g/dL (14.0-18.0); LYMPHOCYTES % 21.7 % (18.0-39.1); MEAN CORPUSCULAR HEMOGLOBIN 23.5 pg (28-32); MEAN CORPUSCULAR HGB CONC 31.1 g/dL (31-35); MEAN CORPUSCULAR VOLUME 75.5 fL (81-99); MONOCYTES # (AUTO) 0.8 (0.2-0.8); MONOCYTES % 8.5 % (4.4-11.3); NEUTROPHILS # (AUTO) 5.9 (2.1-6.9); NEUTROPHILS % 65.3 % (38.7-80.0); PLATELET COUNT 197 x10e3/uL (140-360); RED BLOOD COUNT 5.15 x10e6/uL (4.3-5.7); RED CELL DISTRIBUTION WIDTH 15.2 % (11.7-14.4)
[2021-11-09 06:22] LABS: ANION GAP 9.8 mmol/L (8-16); CALCIUM 8.5 mg/dL (8.4-10.2); CREATININE, SERUM 0.81 mg/dL (0.72-1.25); POTASSIUM 3.8 mmol/L (3.5-5.1)
[2021-11-09] MEDS: INSULIN LISPRO 100 UNIT/1 ML 3ML VIAL SQ SCH ×4 (07:30→20:29)
[2021-11-09] MEDS: AMLODIPINE BESYLATE 5 MG TAB PO SCH ×2 (09:22→17:10)
[2021-11-09] MEDS: LEVETIRACETAM 500 MG TAB PO SCH ×2 (09:22→17:10)
[2021-11-09] MEDS: ENOXAPARIN SOD INJ 60 MG/0.6 ML SYR SC SCH ×2 (09:22→21:22)
[2021-11-09] MEDS: GABAPENTIN 300 MG CAP PO SCH ×3 (09:22→21:22)
[2021-11-09] MEDS: ASPIRIN 81 MG ENTERIC COATED PO SCH (09:22)
[2021-11-09] MEDS: BACITRACIN ZINC 15 GM OINT TOP SCH (09:22)
[2021-11-09] MEDS ORDERED: SODIUM CHLORIDE 0.9% 1000ML 1,000 ML ONE (12:59)
[2021-11-09] MEDS: ATORVASTATIN 40 MG TAB PO SCH (21:22)
[2021-11-09] MEDS: PANTOPRAZOLE SOD 40 MG TABEC PO SCH (21:22)
[2021-11-10] VITALS (8 sets, daily range): BP systolic 122–159; BP diastolic 77–89
[2021-11-10] MEDS: INSULIN LISPRO 100 UNIT/1 ML 3ML VIAL SQ SCH ×4 (07:30→21:00)
[2021-11-10] MEDS: ASPIRIN 81 MG ENTERIC COATED PO SCH (09:43)
[2021-11-10] MEDS: AMLODIPINE BESYLATE 5 MG TAB PO SCH ×2 (09:43→16:29)
[2021-11-10] MEDS: LEVETIRACETAM 500 MG TAB PO SCH ×2 (09:43→16:29)
[2021-11-10] MEDS: BACITRACIN ZINC 15 GM OINT TOP SCH (09:43)
[2021-11-10] MEDS: GABAPENTIN 300 MG CAP PO SCH ×3 (09:43→21:34)
[2021-11-10] MEDS: ENOXAPARIN SOD INJ 60 MG/0.6 ML SYR SC SCH ×2 (09:43→21:36)
[2021-11-10] MEDS ORDERED: POTASSIUM CHLORIDE 10MEQ EA PO ONE (10:30)
[2021-11-10] MEDS ORDERED: FUROSEMIDE INJ 10 MG/ML 4 ML VIAL IV ONE (10:30)
[2021-11-10] MEDS ORDERED: SODIUM CHLORIDE 0.9% 250ML 250 ML ONE (14:56)
[2021-11-10] MEDS ORDERED: IOPAMIDOL 370 MG/ML 100 ML INFUS..BTL INJ ONE (14:56)
[2021-11-10] MEDS: ATORVASTATIN 40 MG TAB PO SCH (21:34)
[2021-11-10] MEDS: PANTOPRAZOLE SOD 40 MG TABEC PO SCH (21:34)
[2021-11-11] VITALS (10 sets, daily range): BP systolic 123–153; BP diastolic 76–82
[2021-11-11 07:22] LABS: BASOPHILS % 0.4 % (0.0-1.0); EOSINOPHILS # (AUTO) 1.1 (0.0-0.4); EOSINOPHILS % 11.2 % (0.0-6.0); HEMATOCRIT 43.8 % (38.2-49.6); HEMOGLOBIN 13.4 g/dL (14.0-18.0); MEAN CORPUSCULAR HEMOGLOBIN 23.2 pg (28-32); MEAN CORPUSCULAR HGB CONC 30.6 g/dL (31-35); MEAN CORPUSCULAR VOLUME 75.8 fL (81-99); MONOCYTES # (AUTO) 0.7 (0.2-0.8); NEUTROPHILS # (AUTO) 5.6 (2.1-6.9); PLATELET COUNT 205 x10e3/uL (140-360); RED BLOOD COUNT 5.78 x10e6/uL (4.3-5.7); RED CELL DISTRIBUTION WIDTH 15.2 % (11.7-14.4)
[2021-11-11] MEDS: INSULIN LISPRO 100 UNIT/1 ML 3ML VIAL SQ SCH ×4 (07:30→20:31)
[2021-11-11 07:48] LABS: ANION GAP 13.9 mmol/L (8-16); CALCIUM 9.3 mg/dL (8.4-10.2); CREATININE, SERUM 0.79 mg/dL (0.72-1.25); POTASSIUM 3.9 mmol/L (3.5-5.1)
[2021-11-11] MEDS: GABAPENTIN 300 MG CAP PO SCH ×3 (08:50→20:35)
[2021-11-11] MEDS: ASPIRIN 81 MG ENTERIC COATED PO SCH (08:50)
[2021-11-11] MEDS: LEVETIRACETAM 500 MG TAB PO SCH ×2 (08:50→16:27)
[2021-11-11] MEDS: ENOXAPARIN SOD INJ 60 MG/0.6 ML SYR SC SCH (08:51)
[2021-11-11] MEDS: AMLODIPINE BESYLATE 5 MG TAB PO SCH ×2 (08:51→16:27)
[2021-11-11] MEDS: BACITRACIN ZINC 15 GM OINT TOP SCH (08:51)
[2021-11-11] MEDS: ATORVASTATIN 40 MG TAB PO SCH (20:35)
[2021-11-11] MEDS: APIXABAN 5 MG TABLET PO SCH (20:35)
[2021-11-11] MEDS: PANTOPRAZOLE SOD 40 MG TABEC PO SCH (20:35)
[2021-11-12 04:33] VITALS: BP 126/73
[2021-11-12] MEDS: INSULIN LISPRO 100 UNIT/1 ML 3ML VIAL SQ SCH ×2 (07:30→11:30)
[2021-11-12 08:00] VITALS: BP 126/73
[2021-11-12 08:38] VITALS: BP 145/82
[2021-11-12] MEDS: BACITRACIN ZINC 15 GM OINT TOP SCH (09:18)
[2021-11-12] MEDS: LEVETIRACETAM 500 MG TAB PO SCH (09:18)
[2021-11-12] MEDS: ASPIRIN 81 MG ENTERIC COATED PO SCH (09:18)
[2021-11-12] MEDS: APIXABAN 5 MG TABLET PO SCH (09:18)
[2021-11-12] MEDS: GABAPENTIN 300 MG CAP PO SCH ×2 (09:18→15:31)
[2021-11-12] MEDS: AMLODIPINE BESYLATE 5 MG TAB PO SCH (09:18)
[2021-11-12 12:15] VITALS: BP 140/77
== END 2021-11-12 15:56 | disposition home or self-care (01) | DRG 871 ==
LOC: ER 22:21 → ERHOLD 23:21 → MED/SURG2 11-07 10:54
PROVIDERS: ADMIT Internal Medicine; ATTEND Internal Medicine
PROC: XW03396 Introduction of Ceftolozane/Tazobactam Anti-infective into Peripheral Vein, Percutaneous Approach, New Technology Group 6 (ICD-10-PCS; principal; 2021-11-07)
DX: A41.9 Sepsis, unspecified organism (principal); G93.41 Metabolic encephalopathy; J69.0 Pneumonitis due to inhalation of food and vomit; I26.99 Other pulmonary embolism without acute cor pulmonale; G40.802 Other epilepsy, not intractable, without status epilepticus; I82.401 Acute embolism and thrombosis of unspecified deep veins of right lower extremity; I82.411 Acute embolism and thrombosis of right femoral vein; E87.2 Acidosis; I69.354 Hemiplegia and hemiparesis following cerebral infarction affecting left non-dominant side; R65.20 Severe sepsis without septic shock; R33.9 Retention of urine, unspecified; I69.369 Other paralytic syndrome following cerebral infarction affecting unspecified side; G83.9 Paralytic syndrome, unspecified; Z74.01 Bed confinement status; Z95.1 Presence of aortocoronary bypass graft; N31.9 Neuromuscular dysfunction of bladder, unspecified; N39.498 Other specified urinary incontinence; N30.91 Cystitis, unspecified with hematuria; N39.46 Mixed incontinence; I27.20 Pulmonary hypertension, unspecified; E66.9 Obesity, unspecified; Z68.29 Body mass index [BMI] 29.0-29.9, adult; E07.9 Disorder of thyroid, unspecified; R09.02 Hypoxemia; Z20.822 Contact with and (suspected) exposure to COVID-19
CPT/HCPCS: 36415; 71045; 71260; 74178; 80048; 80053; 81001; 82550; 82553; 82948; 83036; 83605; 83880; 84484; 85025; 87040; 93005; 93306; 94799; 99251; 99284; J0456; J0696; J1650; J1940; J2543; J7030; J7050; Q9967; U0002

== ENCOUNTER 2021-12-15 09:01 | Inpatient (IN) | payer MEDICARE ==
[~2021-12-15] VITALS: Ht 172.7 cm; Wt 82.0 kg
[2021-12-15] MEDS ORDERED: Vancomycin IV 1 GM in SODIUM CHLORIDE 0.9% 250ML 250 ML IV STA (09:14)
[2021-12-15] MEDS: SODIUM CHLORIDE 0.9% 1000ML 1,000 ML IV SCH ×2 (09:30→21:00)
[2021-12-15 10:10] LABS: BASOPHILS % 0.4 % (0.0-1.0); EOSINOPHILS # (AUTO) 0.6 (0.0-0.4); EOSINOPHILS % 10.4 % (0.0-6.0); HEMATOCRIT 45.1 % (38.2-49.6); LYMPHOCYTES # (AUTO) 1.7 (1.0-3.2); LYMPHOCYTES % 29.9 % (18.0-39.1); MEAN CORPUSCULAR HEMOGLOBIN 24.1 pg (28-32); MEAN CORPUSCULAR VOLUME 77.5 fL (81-99); MONOCYTES # (AUTO) 0.5 (0.2-0.8); NEUTROPHILS # (AUTO) 2.8 (2.1-6.9); NEUTROPHILS % 50.1 % (38.7-80.0); PLATELET COUNT 96 x10e3/uL (140-360); RED BLOOD COUNT 5.82 x10e6/uL (4.3-5.7); RED CELL DISTRIBUTION WIDTH 16.2 % (11.7-14.4)
[2021-12-15 10:17] LABS: INR 1.07; PROTHROMBIN TIME 14.9 seconds (11.9-14.5)
[2021-12-15 10:18] LABS: PARTIAL THROMBOPLASTIN TIME 34.5 seconds (23.8-35.5)
[2021-12-15 10:27] LABS: ALBUMIN 3.4 g/dL (3.5-5.0); ALBUMIN/GLOBULIN RATIO 0.9 (0.8-2.0); ANION GAP 12.6 mmol/L (8-16); CREATININE, SERUM 0.85 mg/dL (0.72-1.25); POTASSIUM 4.6 mmol/L (3.5-5.1)
[2021-12-15 10:27] LABS: CLARITY,URINE CLEAR (CLEAR); COLOR,URINE YELLOW (YELLOW); KETONES,URINE NEGATIVE (NEGATIVE); LEUKOCYTE ESTERASE ,URINE NEGATIVE (NEGATIVE); NITRITE,URINE NEGATIVE (NEGATIVE); PROTEIN,URINE DIPSTICK NEGATIVE (NEGATIVE); URINE UROBILINOGEN 1 mg/dL (0.2 - 1)
[2021-12-15 10:28] LABS: BACTERIA,URINE FEW /HPF; EPITHELIAL CELLS,URINE FEW /LPF; RBC,URINE 0-5 /HPF (0-5); WBC,URINE (MAN) 0-5 /HPF (0-5)
[2021-12-15] MEDS ORDERED: ONDANSETRON HCL INJ 2MG/ML 2ML 2 MG/ML VIAL IV PRN (12:45)
[2021-12-15] MEDS ORDERED: MUPIROCIN22 GM TOP (13:57)
[2021-12-15] MEDS ORDERED: FLOMAX0.4 MG PO (13:57)
[2021-12-15] MEDS ORDERED: ELIQUIS2.5 MG PO (13:57)
[2021-12-15] MEDS ORDERED: BACLOFEN10 MG PO (13:57)
[2021-12-15 14:00] VITALS: BP 157/87
[2021-12-15 15:09] VITALS: BP 157/87
[2021-12-15 20:00] VITALS: BP 142/85
[2021-12-15] MEDS: Vancomycin IV 1 GM in SODIUM CHLORIDE 0.9% 250ML 250 ML IV SCH (21:00)
[2021-12-15 21:27] VITALS: BP 142/85
[2021-12-16] VITALS (8 sets, daily range): BP systolic 121–160; BP diastolic 79–98
[2021-12-16] MEDS: SODIUM CHLORIDE 0.9% 1000ML 1,000 ML IV SCH (06:31)
[2021-12-16 07:21] LABS: BASOPHILS % 0.4 % (0.0-1.0); EOSINOPHILS # (AUTO) 0.7 (0.0-0.4); EOSINOPHILS % 8.8 % (0.0-6.0); HEMATOCRIT 44.6 % (38.2-49.6); HEMOGLOBIN 13.7 g/dL (14.0-18.0); LYMPHOCYTES # (AUTO) 1.8 (1.0-3.2); LYMPHOCYTES % 24.4 % (18.0-39.1); MEAN CORPUSCULAR HEMOGLOBIN 23.7 pg (28-32); MEAN CORPUSCULAR HGB CONC 30.7 g/dL (31-35); MONOCYTES # (AUTO) 0.7 (0.2-0.8); MONOCYTES % 9.2 % (4.4-11.3); NEUTROPHILS # (AUTO) 4.2 (2.1-6.9); NEUTROPHILS % 57.1 % (38.7-80.0); PLATELET COUNT 153 x10e3/uL (140-360); RED BLOOD COUNT 5.79 x10e6/uL (4.3-5.7); RED CELL DISTRIBUTION WIDTH 15.9 % (11.7-14.4)
[2021-12-16 07:44] LABS: ALBUMIN 3.3 g/dL (3.5-5.0); ALBUMIN/GLOBULIN RATIO 0.9 (0.8-2.0); ANION GAP 11.1 mmol/L (8-16); CALCIUM 8.9 mg/dL (8.4-10.2); CREATININE, SERUM 0.98 mg/dL (0.72-1.25); POTASSIUM 4.1 mmol/L (3.5-5.1)
[2021-12-16] MEDS: Vancomycin IV 1 GM in SODIUM CHLORIDE 0.9% 250ML 250 ML IV SCH (08:21)
[2021-12-16] MEDS: Doxycycline IV 100 MG in SODIUM CHLORIDE 0.9% 100 ML IV SCH (13:28)
[2021-12-16] MEDS: GABAPENTIN 300 MG CAP PO SCH ×2 (15:23→20:51)
[2021-12-16] MEDS: BACLOFEN 10 MG TAB PO SCH ×2 (15:23→20:51)
[2021-12-16] MEDS: LEVETIRACETAM 500 MG TAB PO SCH (17:20)
[2021-12-16] MEDS: MUPIROCIN 2% OINT 22 GM TUBE TOP SCH (17:20)
[2021-12-16] MEDS: AMLODIPINE BESYLATE 5 MG TAB PO SCH (17:20)
[2021-12-16] MEDS: APIXAB 2.5 MG TABLET PO SCH (17:20)
[2021-12-16] MEDS: TAMSULOSIN HCL 0.4 MG CAP PO SCH (17:20)
[2021-12-16] MEDS: ATORVASTATIN 20 MG TAB PO SCH (20:51)
[2021-12-16] MEDS: PANTOPRAZOLE SOD 40 MG TABEC PO SCH (20:51)
[2021-12-16] MEDS ORDERED: SODIUM CHLORIDE 0.9% 250ML 250 ML ONE (23:25)
[2021-12-17] VITALS (8 sets, daily range): BP systolic 124–155; BP diastolic 79–93
[2021-12-17] MEDS: Doxycycline IV 100 MG in SODIUM CHLORIDE 0.9% 100 ML IV SCH ×2 (00:35→12:30)
[2021-12-17] MEDS: LEVETIRACETAM 500 MG TAB PO SCH ×2 (09:00→16:47)
[2021-12-17] MEDS: BACLOFEN 10 MG TAB PO SCH ×3 (09:00→21:34)
[2021-12-17] MEDS: AMLODIPINE BESYLATE 5 MG TAB PO SCH ×2 (09:00→16:47)
[2021-12-17] MEDS: MUPIROCIN 2% OINT 22 GM TUBE TOP SCH ×2 (09:00→16:47)
[2021-12-17] MEDS: APIXAB 2.5 MG TABLET PO SCH ×2 (09:00→16:47)
[2021-12-17] MEDS: GABAPENTIN 300 MG CAP PO SCH ×3 (09:00→21:34)
[2021-12-17] MEDS: TAMSULOSIN HCL 0.4 MG CAP PO SCH (16:47)
[2021-12-17] MEDS: PANTOPRAZOLE SOD 40 MG TABEC PO SCH (21:34)
[2021-12-17] MEDS: ATORVASTATIN 20 MG TAB PO SCH (21:34)
[2021-12-18] VITALS (7 sets, daily range): BP systolic 104–143; BP diastolic 71–90
[2021-12-18] MEDS: Doxycycline IV 100 MG in SODIUM CHLORIDE 0.9% 100 ML IV SCH ×2 (00:35→12:30)
[2021-12-18] MEDS: MUPIROCIN 2% OINT 22 GM TUBE TOP SCH ×2 (09:00→16:54)
[2021-12-18] MEDS: BACLOFEN 10 MG TAB PO SCH ×3 (09:00→21:06)
[2021-12-18] MEDS: GABAPENTIN 300 MG CAP PO SCH ×3 (09:00→21:07)
[2021-12-18] MEDS: AMLODIPINE BESYLATE 5 MG TAB PO SCH ×2 (09:00→16:53)
[2021-12-18] MEDS: LEVETIRACETAM 500 MG TAB PO SCH ×2 (09:00→16:53)
[2021-12-18] MEDS: APIXAB 2.5 MG TABLET PO SCH ×2 (09:00→16:52)
[2021-12-18] MEDS ORDERED: ONDANSETRON HCL 4 MG ORAL DISINTEGRATING TAB PO PRN (12:30)
[2021-12-18] MEDS: TAMSULOSIN HCL 0.4 MG CAP PO SCH (16:52)
[2021-12-18] MEDS: TRIAMCINOLONE ACET 0.1% CREAM 15 GM TUBE TOP SCH (16:53)
[2021-12-18] MEDS: ATORVASTATIN 40 MG TAB PO SCH (21:07)
[2021-12-18] MEDS: PANTOPRAZOLE SOD 40 MG TABEC PO SCH (21:07)
[2021-12-19] VITALS (7 sets, daily range): BP systolic 106–133; BP diastolic 71–78
[2021-12-19] MEDS: Doxycycline IV 100 MG in SODIUM CHLORIDE 0.9% 100 ML IV SCH (00:01)
[2021-12-19 05:43] LABS: BASOPHILS % 0.3 % (0.0-1.0); EOSINOPHILS # (AUTO) 0.6 (0.0-0.4); EOSINOPHILS % 10.3 % (0.0-6.0); HEMATOCRIT 41.4 % (38.2-49.6); HEMOGLOBIN 12.6 g/dL (14.0-18.0); LYMPHOCYTES # (AUTO) 1.7 (1.0-3.2); LYMPHOCYTES % 27.1 % (18.0-39.1); MEAN CORPUSCULAR HEMOGLOBIN 23.6 pg (28-32); MEAN CORPUSCULAR HGB CONC 30.4 g/dL (31-35); MEAN CORPUSCULAR VOLUME 77.7 fL (81-99); MONOCYTES # (AUTO) 0.5 (0.2-0.8); MONOCYTES % 8.4 % (4.4-11.3); NEUTROPHILS # (AUTO) 3.3 (2.1-6.9); NEUTROPHILS % 53.7 % (38.7-80.0); PLATELET COUNT 146 x10e3/uL (140-360); RED BLOOD COUNT 5.33 x10e6/uL (4.3-5.7); RED CELL DISTRIBUTION WIDTH 15.8 % (11.7-14.4)
[2021-12-19 06:05] LABS: ANION GAP 9.8 mmol/L (8-16); CALCIUM 8.6 mg/dL (8.4-10.2); CREATININE, SERUM 0.86 mg/dL (0.72-1.25); POTASSIUM 3.8 mmol/L (3.5-5.1)
[2021-12-19] MEDS: BACLOFEN 10 MG TAB PO SCH ×3 (09:30→21:00)
[2021-12-19] MEDS: TRIAMCINOLONE ACET 0.1% CREAM 15 GM TUBE TOP SCH ×2 (09:30→17:23)
[2021-12-19] MEDS: APIXAB 2.5 MG TABLET PO SCH ×2 (09:30→17:23)
[2021-12-19] MEDS: AMLODIPINE BESYLATE 5 MG TAB PO SCH ×2 (09:30→17:23)
[2021-12-19] MEDS: MUPIROCIN 2% OINT 22 GM TUBE TOP SCH ×2 (09:30→17:23)
[2021-12-19] MEDS: GABAPENTIN 300 MG CAP PO SCH ×3 (09:30→21:00)
[2021-12-19] MEDS: LEVETIRACETAM 500 MG TAB PO SCH ×2 (09:30→17:23)
[2021-12-19] MEDS: DOXYCYCLINE HYCLATE TABLET 100 MG TAB PO SCH (12:06)
[2021-12-19] MEDS: TAMSULOSIN HCL 0.4 MG CAP PO SCH (17:23)
[2021-12-19] MEDS: PANTOPRAZOLE SOD 40 MG TABEC PO SCH (21:00)
[2021-12-19] MEDS: ATORVASTATIN 40 MG TAB PO SCH (21:00)
[2021-12-20] VITALS: BP 116/74
[2021-12-20] MEDS: DOXYCYCLINE HYCLATE TABLET 100 MG TAB PO SCH ×2 (00:08→12:00)
[2021-12-20 04:00] VITALS: BP 135/79
[2021-12-20 05:20] VITALS: BP 135/79
[2021-12-20 08:00] VITALS: BP 116/66
[2021-12-20 08:08] VITALS: BP 116/66
[2021-12-20] MEDS: LEVETIRACETAM 500 MG TAB PO SCH (08:33)
[2021-12-20] MEDS: APIXAB 2.5 MG TABLET PO SCH (08:33)
[2021-12-20] MEDS: AMLODIPINE BESYLATE 5 MG TAB PO SCH (08:33)
[2021-12-20] MEDS: BACLOFEN 10 MG TAB PO SCH (08:33)
[2021-12-20] MEDS: GABAPENTIN 300 MG CAP PO SCH (08:34)
[2021-12-20] MEDS: TRIAMCINOLONE ACET 0.1% CREAM 15 GM TUBE TOP SCH (09:00)
[2021-12-20] MEDS: MUPIROCIN 2% OINT 22 GM TUBE TOP SCH (09:00)
[2021-12-20] MEDS ORDERED: VIBRAMYCIN100 MG PO (11:36)
[2021-12-20] MEDS ORDERED: TRIAMCINOLONE A15 G1 TOP (11:40)
[2021-12-20 12:40] VITALS: BP 119/75
== END 2021-12-20 13:45 | disposition home health service (06) | DRG 596 ==
LOC: ER 09:05 → ERHOLD 12:41 → MED/SURG2 13:30
PROVIDERS: ADMIT Internal Medicine; ATTEND Internal Medicine
DX: L10.4 Pemphigus erythematosus (principal); L03.311 Cellulitis of abdominal wall; I69.351 Hemiplegia and hemiparesis following cerebral infarction affecting right dominant side; I69.354 Hemiplegia and hemiparesis following cerebral infarction affecting left non-dominant side; F44.4 Conversion disorder with motor symptom or deficit; R23.8 Other skin changes; I10 Essential (primary) hypertension; G40.909 Epilepsy, unspecified, not intractable, without status epilepticus; E78.5 Hyperlipidemia, unspecified; K29.70 Gastritis, unspecified, without bleeding; K21.9 Gastro-esophageal reflux disease without esophagitis; G62.9 Polyneuropathy, unspecified; E66.9 Obesity, unspecified; E03.9 Hypothyroidism, unspecified; Z74.01 Bed confinement status; Z68.27 Body mass index [BMI] 27.0-27.9, adult; E89.0 Postprocedural hypothyroidism; Z91.81 History of falling; Z86.718 Personal history of other venous thrombosis and embolism; M50.30 Other cervical disc degeneration, unspecified cervical region; R32 Unspecified urinary incontinence; K59.00 Constipation, unspecified
CPT/HCPCS: 36415; 71045; 76870; 80048; 80053; 81001; 83518; 83605; 85025; 85610; 85651; 85730; 86039; 86431; 87040; 87070; 87086; 93976; 97139; 99251; 99284; J2543; J3370; J7030; J7050; U0002